=== PATIENT | male | born 1950 | race Caucasian/White ===

== ENCOUNTER 2018-05-22 12:23 | Inpatient (IN) | payer MEDICARE, OTHER ==
[2018-05-22] MEDS ORDERED: SODIUM CHLORIDE 0.9% 1,000 ML IV STA (12:31)
[2018-05-22 12:37] LABS: Glucose,Whole Blood 96 mg/dL (75-99)
--- NOTE | 2018-05-22 12:42 | ED ---
General Adult HPI - General Chief complaint: Neuro Symptoms/Deficit Stated complaint: Poss stroke Time Seen by Provider: 05/22/18 12:31 Source: patient, EMS, RN notes reviewed Mode of arrival: ambulatory Limitations: no limitations - History of Present Illness Initial comments: Patient is a pleasant 67-year-old male presenting to the emergency Department with visual changes and balance problems. Last known well was 10 PM. Patient woke at 3 AM and did have some difficulty with vision and balance. This was while he went to the bathroom. Patient woke again at 8 AM and symptoms were worse. Symptoms have been persistent and unchanged since 8 AM. Patient does not feel confused. Patient is unaware of any isolated area of weakness. No history of similar symptoms previously. No paresthesias. Patient did fall 3 times. Patient did strike the back of his head one time and states there is only mild discomfort there. Patient denies any speech problems. Patient does admit to not taking his blood pressure medication recently. Patient states he no longer sees his doctor because they claimed he owed them money for a missed appointment that he did not miss. - Related Data Home Medications Medication Instructions Recorded Confirmed No Known Home Medications [No 05/22/18 05/22/18 Known Home Medications] Allergies Allergy/AdvReac Type Severity Reaction Status Date / Time ciprofloxacin [From Cipro] Allergy Unknown Verified 05/22/18 13:15 Penicillins Allergy Unknown Verified 05/22/18 13:15 Review of Systems ROS Statement: Those systems with pertinent positive or pertinent negative responses have been documented in the HPI. ROS Other: All systems not noted in ROS Statement are negative. Constitutional: Denies: fever Eyes: Reports: vision change ENT: Denies: ear pain Respiratory: Denies: dyspnea Cardiovascular: Denies: chest pain Endocrine: Denies: fatigue Gastrointestinal: Denies: abdominal pain Genitourinary: Denies: dysuria Musculoskeletal: Denies: back pain Skin: Denies: rash Neurological: Reports: headache, abnormal gait. Denies: confusion Past Medical History Past Medical History: Cancer, Hypertension Additional Past Medical History / Comment(s): chronic back issues, skin CA History of Any Multi-Drug Resistant Organisms: None Reported Past Psychological History: Anxiety Smoking Status: Current every day smoker Past Alcohol Use History: Daily Past Drug Use History: None Reported General Exam Limitations: no limitations General appearance: alert Head exam: Present: atraumatic, normocephalic Eye exam: Present: other (Disconjugate gaze). Absent: EOMI (Right eye unable to move medially past midline.) ENT exam: Present: normal oropharynx Neck exam: Present: normal inspection Respiratory exam: Present: normal lung sounds bilaterally Cardiovascular Exam: Present: regular rate, normal rhythm GI/Abdominal exam: Present: soft. Absent: tenderness Extremities exam: Present: normal inspection Neurological exam: Present: alert Expanded Neurological exam: Present: protecting the airway, other (Some slurred speech is present) Cranial nerves: EOM's Intact: Abnormal Right (Right eye unable to move medially past midline), Facial Sensation: Abnormal Left, Facial Palsy with Forehead Movement: Abnormal Left (Left facial droop) Cerebellar function: Finger to Nose: Abnormal Left Sensory exam: Upper Extremity Light Touch: Normal, Lower Extremity Light Touch: Normal Motor strength exam: RUE: 5, LUE: 5, RLE: 5, LLE: 4 Eye Response: (4) open spontaneously Motor Response: (6) obeys commands Verbal Response: (5) oriented Psychiatric exam: Present: normal affect, normal mood Skin exam: Present: normal color Course Vital Signs 05/22/18 12:32 Temperature 98.2 F Pulse Rate 75 Respiratory 16 Rate Blood Pressure 209/121 O2 Sat by Pulse 100 Oximetry EKG Findings - EKG Comments: EKG Findings:: Normal sinus rhythm 74. IA 128. QRS 78. QT 380. QTC 421. Normal axis. Normal QRS. No acute ST change. Medical Decision Making - Medical Decision Making Patient reevaluated. Patient unchanged. Patient is updated on results and plan. Case was discussed in detail with Dr. Davis, who will admit for hospital call. Patient is not a candidate for TPA secondary to last known well greater than 4.5 hours. - Lab Data Result diagrams: 05/22/18 12:34 05/22/18 12:34 Lab Results 05/22/18 05/22/18 05/22/18 Range/Units 12:30 12:34 12:34 WBC 8.9 (3.8-10.6) k/uL RBC 4.82 (4.30-5.90) m/uL Hgb 15.1 (13.0-17.5) gm/dL Hct 44.8 (39.0-53.0) % MCV 92.9 (80.0-100.0) fL MCH 31.3 (25.0-35.0) pg MCHC 33.7 (31.0-37.0) g/dL RDW 14.1 (11.5-15.5) % Plt Count 285 (150-450) k/uL Neutrophils % 70 % Lymphocytes % 19 % Monocytes % 7 % Eosinophils % 2 % Basophils % 1 % Neutrophils # 6.2 (1.3-7.7) k/uL Lymphocytes # 1.7 (1.0-4.8) k/uL Monocytes # 0.6 (0-1.0) k/uL Eosinophils # 0.2 (0-0.7) k/uL Basophils # 0.1 (0-0.2) k/uL PT (9.0-12.0) sec INR (<1.2) APTT (22.0-30.0) sec Sodium (137-145) mmol/L Potassium (3.5-5.1) mmol/L Chloride (98-107) mmol/L Carbon Dioxide (22-30) mmol/L Anion Gap mmol/L BUN (9-20) mg/dL Creatinine (0.66-1.25) mg/dL Est GFR (CKD-EPI)AfAm (>60 ml/min/1.73 sqM) Est GFR (CKD-EPI)NonAf (>60 ml/min/1.73 sqM) Glucose (74-99) mg/dL POC Glucose (mg/dL) 96 (75-99) mg/dL POC Glu Manufacturing Controller ID Samuel Avalos Calcium (8.4-10.2) mg/dL Total Bilirubin (0.2-1.3) mg/dL AST (17-59) U/L ALT (21-72) U/L Alkaline Phosphatase (38-126) U/L Total Creatine Kinase 160 (55-170) U/L CK-MB (CK-2) 1.9 (0.0-2.4) ng/mL CK-MB (CK-2) Rel Index 1.2 Troponin I <0.012 (0.000-0.034) ng/mL Total Protein (6.3-8.2) g/dL Albumin (3.5-5.0) g/dL 05/22/18 05/22/18 Range/Units 12:34 12:34 WBC (3.8-10.6) k/uL RBC (4.30-5.90) m/uL Hgb (13.0-17.5) gm/dL Hct (39.0-53.0) % MCV (80.0-100.0) fL MCH (25.0-35.0) pg MCHC (31.0-37.0) g/dL RDW (11.5-15.5) % Plt Count (150-450) k/uL Neutrophils % % Lymphocytes % % Monocytes % % Eosinophils % % Basophils % % Neutrophils # (1.3-7.7) k/uL Lymphocytes # (1.0-4.8) k/uL Monocytes # (0-1.0) k/uL Eosinophils # (0-0.7) k/uL Basophils # (0-0.2) k/uL PT 9.8 (9.0-12.0) sec INR 1.0 (<1.2) APTT 23.7 (22.0-30.0) sec Sodium 140 (137-145) mmol/L Potassium 4.4 (3.5-5.1) mmol/L Chloride 103 (98-107) mmol/L Carbon Dioxide 26 (22-30) mmol/L Anion Gap 11 mmol/L BUN 8 L (9-20) mg/dL Creatinine 0.72 (0.66-1.25) mg/dL Est GFR (CKD-EPI)AfAm >90 (>60 ml/min/1.73 sqM) Est GFR (CKD-EPI)NonAf >90 (>60 ml/min/1.73 sqM) Glucose 95 (74-99) mg/dL POC Glucose (mg/dL) (75-99) mg/dL POC Glu Manufacturing Controller ID Calcium 9.5 (8.4-10.2) mg/dL Total Bilirubin 1.1 (0.2-1.3) mg/dL AST 24 (17-59) U/L ALT 31 (21-72) U/L Alkaline Phosphatase 80 (38-126) U/L Total Creatine Kinase (55-170) U/L CK-MB (CK-2) (0.0-2.4) ng/mL CK-MB (CK-2) Rel Index Troponin I (0.000-0.034) ng/mL Total Protein 7.5 (6.3-8.2) g/dL Albumin 4.5 (3.5-5.0) g/dL - Radiology Data Radiology results: image reviewed (Two-view chest x-ray shows no acute process. Computed tomography scan of the brain shows atrophy and some periventricular white matter ischemic changes.) Disposition Clinical Impression: Cerebrovascular accident Disposition: ADMITTED IP TO THIS [facility] Condition: Serious Is patient prescribed a controlled substance at d/c from ED?: No Referrals: None,Stated [Primary Care Provider] - 1-2 days Decision Time: 13:39
[2018-05-22 12:51] LABS: Basophils # (A) 0.1 k/uL (0-0.2); Basophils % (A) 1 %; Eosinophils # (A) 0.2 k/uL (0-0.7); Eosinophils % (A) 2 %; HCT 44.8 % (39.0-53.0); HGB 15.1 gm/dL (13.0-17.5); Lymphocytes # (A) 1.7 k/uL (1.0-4.8); Lymphocytes % (A) 19 %; MCH 31.3 pg (25.0-35.0); MCHC 33.7 g/dL (31.0-37.0); MCV 92.9 fL (80.0-100.0); Mean Platelet Volume 6.6; Monocytes # (A) 0.6 k/uL (0-1.0); Monocytes % (A) 7 %; Neutrophils # (A) 6.2 k/uL (1.3-7.7); Neutrophils % (A) 70 %; Platelet Count 285 k/uL (150-450); RBC 4.82 m/uL (4.30-5.90); RDW 14.1 % (11.5-15.5); WBC 8.9 k/uL (3.8-10.6)
[2018-05-22 12:59] LABS: ALT 31 U/L (21-72); AST 24 U/L (17-59); Albumin 4.5 g/dL (3.5-5.0); Alkaline Phosphatase 80 U/L (38-126); Anion Gap 11 mmol/L; Blood Urea Nitrogen 8 mg/dL (9-20); Calcium 9.5 mg/dL (8.4-10.2); Carbon Dioxide 26 mmol/L (22-30); Chloride 103 mmol/L (98-107); Glucose 95 mg/dL (74-99); Potassium 4.4 mmol/L (3.5-5.1); Sodium 140 mmol/L (137-145); Total Bilirubin 1.1 mg/dL (0.2-1.3); Total Protein 7.5 g/dL (6.3-8.2)
[2018-05-22 13:00] LABS: Partial Thromboplastin Time 23.7 sec (22.0-30.0); Prothrombin Time 9.8 sec (9.0-12.0)
[2018-05-22 13:12] LABS: Creatine Kinase 160 U/L (55-170)
[2018-05-22 13:24] LABS: Creatine Kinase MB 1.9 ng/mL (0.0-2.4); Troponin I <0.012 ng/mL (0.000-0.034)
--- NOTE | 2018-05-22 13:25 | CT ---
EXAMINATION TYPE: CT brain wo con for TPA DATE OF EXAM: 05/22/2018 COMPARISON: NONE INDICATION: Patient complains of left side weakness and visual disturbance. DLP: 860 mGycm, Automated exposure control for dose reduction was used. CONTRAST: None CT of the brain is performed utilizing 3 mm thick sections through the posterior fossa and 3 mm thick sections through the remaining calvarium. Study is performed within 24 hours of arrival to the hosp ital. No abnormal hyperdensity is present to suggest an acute intracranial hemorrhage. No mass lesion is evident. No acute infarcts are evident. Periventricular white matter hypodensity is present likely on the basi s of chronic white matter ischemic change. Ventricles and sulci are lightly prominent for the patient age. Paranasal sinuses and mastoid air cells within the [id number] are clear. IMPRESSIONS: 1. Atrophy with periventricular white matter ischemic changes.
--- NOTE | 2018-05-22 13:33 | XR ---
EXAMINATION TYPE: XR chest 2V DATE OF EXAM: 05/22/2018 COMPARISON: NONE INDICATION: Altered mental status TECHNIQUE: Frontal and lateral views of the chest are obtained. FINDINGS: The heart size is normal. The pulmonary vasculature is normal. The lungs are clear. There is elevation of the right diaphragm. Mild hyperinflation may be present. IMPRESSION: 1. No acute pulmonary process.
[2018-05-22] MEDS ORDERED: ASPIRIN 325 MG TAB PO STA (13:39)
[2018-05-22] MEDS ORDERED: ALPRAZolam 0.5 MG TAB PO STA (13:42)
[2018-05-22] MEDS ORDERED: LABETALOL 5 MG/ML VIAL MDV IVP STA (13:47)
--- NOTE | 2018-05-22 14:00 | CT ---
EXAMINATION TYPE: CT angio head neck DATE OF EXAM: 05/22/2018 HISTORY: Patient complains of left side weakness and visual disturbance. COMPARISON: NONE CT DLP: 250.1 mGycm. Automated Exposure Control for Dose Reduction was Utilized. TECHNIQUE: CTA scan of the neck is performed with IV Contrast, patient injected with 60 mL of Isovue 370, axial images are obtained, coronal and sagittal reformatted images are reviewed. Three-D recons tructed images are created on an independent workstation and reviewed. FINDINGS: Carotid/Vascular Structures: There is a three-vessel arch. Vertebral arteries are codominant. Caroti d arteries bifurcate normally into internal and external carotid arteries. There is atheromatous plaq uing at the carotid bifurcations. No obvious stenosis is evident. 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 This is not identified on the reconst ructed images. Left A1 segment appears normal. The anterior communicating artery is patent. Posterior communicating arteries are not identified. Other: Degenerative changes are noted within the cervical spine. Intracranial contents are grossly no rmal. IMPRESSION: 1. Atheromatous plaquing at the carotid bifurcations without obvious significant stenosis. 2. [place] is within normal limits. 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
[2018-05-22 19:35] VITALS: BMI 24.0
[2018-05-22] MEDS: SODIUM CHLORIDE 0.9% 1,000 ML IV SCH ×2 (19:51→23:44)
--- NOTE | 2018-05-22 23:38 | P.HPIM ---
History of Present Illness H&P Date: 05/22/18 Chief Complaint: Dizziness and visual problems Patient is a 67-year-old male with a known history of hypertension currently not on any medications came to ER with complaints of dizziness, visual problems and balance issues. Patient went to bed around 10 PM last night without any symptoms. Patient woke up around 3 AM did felt dizziness. Patient went to bathroom and looked in the mirror and noticed some facial asymmetry but thought he was sleepy and went to bed again. Patient woke up around 8 AM again him he noticed similar problems and felt very weak and dizzy and also having visual problems and felt blurry. Patient has been having this persistent symptoms and came to ER for further evaluation. Denied any leg R hand weakness. Patient does have left-sided facial weakness and is diagnosing the left eye. Denied any numbness or tingling. Patient did fall 3 times.. Patient did strike the back of his head one time and states there is only mild discomfort there. Patient denies any speech problems. Denied any recent illnesses. No chest pain or shortness of breath. No palpitations. EKG showed sinus rhythm CT head atrophy with periventricular white matter ischemic changes Chest x-ray no acute cardiopulmonary process CT angiogram of the head showed atheromatous plague at the carotid bifurcation without obvious significant stenosis. 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 Review of Systems Constitutional: Patient denies any fever or chills . No generalized weakness or weight loss. Abdomen: Patient denied nausea vomiting and diarrhea and abdominal pain. Cardiovascular: Patient denies any chest pain or short of breath no palpitations. Respiratory: patient denied any cough is from production. No shortness of breath Neurologic: Patient denied any numbness or tingling. No headache. Patient does have dizziness and blurred vision and no difficulty in speech. Musculoskeletal: Patient denies any complaints of joint swelling or deformity. Skin: Negative Psychiatric: Negative Endocrine: No heat or cold intolerance. No recent weight gain. Genitourinary: No dysuria or hematuria. All other 14 point ROS negative except the above Past Medical History Past Medical History: Cancer, Hypertension Additional Past Medical History / Comment(s): chronic back issues, skin CA History of Any Multi-Drug Resistant Organisms: None Reported Past Psychological History: Anxiety Smoking Status: Current every day smoker Past Alcohol Use History: Daily Past Drug Use History: None Reported Medications and Allergies Home Medications Medication Instructions Recorded Confirmed Type No Known Home Medications [No 05/22/18 05/22/18 History Known Home Medications] Allergies Allergy/AdvReac Type Severity Reaction Status Date / Time ciprofloxacin [From Cipro] Allergy Unknown Verified 05/22/18 13:15 Penicillins Allergy Unknown Verified 05/22/18 13:15 Physical Exam Vitals: Vital Signs Temp Pulse Resp BP Pulse Ox 05/22/18 13:58 68 16 227/98 100 05/22/18 13:47 76 16 240/119 99 05/22/18 12:32 98.2 F 75 16 209/121 100 Intake and Output 05/22/18 05/22/18 05/22/18 06:59 14:59 22:59 Other: Weight 73.936 kg PHYSICAL EXAMINATION: Patient is lying in the bed comfortably, no acute distress, awake alert and oriented.. HEENT: Normocephalic. Neck is supple. Pupils reactive. Nostrils clear. Oral cavity is moist. Ears reveal no drainage. Neck reveals no JVD, carotid bruits, or thyromegaly. CHEST EXAMINATION: Trachea is central. Symmetrical expansion. Lung castorena clear to auscultation and percussion. CARDIAC: Normal S1, S2 with no gallops. No murmurs ABDOMEN: Soft. Bowel sounds normal. No organomegaly. No abdominal bruits. Extremities: reveal no edema. No clubbing or cyanosis Neurologically awake, alert, oriented x3 with well-coordinated movements. Patient does have left-sided facial muscle weakness and nystagmus. Skin: No rash or skin lesions. Psychiatric: Coperative. Nonsuicidal Musculoskeletal: No joint swelling or deformity. Normal range of motion. Results CBC & Chem 7: 05/22/18 12:34 05/22/18 12:34 Labs: Abnormal Lab Results - Last 24 Hours (Table) 05/22/18 Range/Units 12:34 BUN 8 L (9-20) mg/dL Assessment and Plan Assessment: Acute CVA with left-sided facial muscle weakness Blurry vision Uncontrolled blood pressure expected with acute CVA area Hypertension history. Not on any medications currently at home. DVT prophylaxis Plan: Patient will be continued on aspirin. Continue with neurochecks. Patient underwent CT head and CTA head. Neurology will be consulted. Patient is out of time range For TPA. Continue to follow closely and further recommendations based on the clinical course. PTOT and speech swallow evaluation. Time with Patient: Greater than 30
[2018-05-22] MEDS: ALPRAZolam 0.5 MG TAB PO PRN (23:49)
[2018-05-23 03:36] LABS: Cholesterol 161 mg/dL (<200); HDL Cholesterol 73 mg/dL (40-60); LDL Cholesterol,Calculated 76 mg/dL (0-99); Triglycerides 62 mg/dL (<150)
[2018-05-23] MEDS: ALPRAZolam 0.5 MG TAB PO PRN ×2 (10:00→21:21)
[2018-05-23] MEDS: SODIUM CHLORIDE 0.9% 1,000 ML IV SCH ×2 (10:02→17:16)
[2018-05-23] MEDS: ASPIRIN 325 MG TAB PO SCH (12:20)
--- NOTE | 2018-05-23 12:20 | ECHOF ---
Referral Reason:Thrombus MEASUREMENTS -------- HEIGHT: 172.7 cm WEIGHT: 71.2 kg BP: 152/82 RVIDd: 2.9 cm (< 3.3) IVSd: 1.4 cm (0.6 - 1.1) LVIDd: 5.0 cm (3.9 - 5.3) LVPWd: 1.4 cm (0.6 - 1.1) IVSs: 1.6 cm LVIDs: 3.0 cm LVPWs: 1.5 cm LA Diam: 3.8 cm (2.7 - 3.8) LAESV Index (A-L): 38.71 ml/m Ao Diam: 3.1 cm (2.0 - 3.7) AV Cusp: 1.5 cm (1.5 - 2.6) MV EXCURSION: 18.547 mm (> 18.000) MV EF SLOPE: 133 mm/s (70 - 150) EPSS: 0.8 cm MV E Tito: 1.20 m/s MV DecT: 217 ms MV A Tito: 0.84 m/s MV E/A Ratio: 1.44 AV maxP.36 mmHg AV meanP.30 mmHg AR PHT: 510 ms RAP: 5.00 mmHg RVSP: 42.89 mmHg FINDINGS -------- Sinus rhythm. This was a technically good study. The left ventricular size is normal. There is moderate concentric left ventricular hypertrophy. O verall left ventricular systolic function is normal with, an EF between 55 - 60 %. The right ventricle is normal in size. LA is moderately dilated 34-39 ml/m2 The right atrium is normal in size. There is moderate aortic valve sclerosis. There is mild aortic stenosis present. Peak/mean gradie nt across the Aortic Valve is 31.36mmHg / 16.30mmHg. The mitral valve leaflets are mildly thickened. Mild mitral annular calcification present. Mild m itral regurgitation is present. Mild tricuspid regurgitation present. There is mild pulmonary hypertension. The right ventricular systolic pressure, as measured by Doppler, is 42.89mmHg. There is no pulmonic regurgitation present. The aortic root size is normal. Normal inferior vena cava with normal inspiratory collapse consistent with estimated right atrial pre ssure of 5 mmHg. The inferior vena cava is mildly dilated. There is no pericardial effusion. CONCLUSIONS -------- 1. Sinus rhythm. 2. This was a technically good study. 3. The left ventricular size is normal. 4. There is moderate concentric left ventricular hypertrophy. 5. Overall left ventricular systolic function is normal with, an EF between 55 - 60 %. 6. The right ventricle is normal in size. 7. LA is moderately dilated 34-39 ml/m2 8. The right atrium is normal in size. 9. There is moderate aortic valve sclerosis. 10. There is mild aortic stenosis present. 11. Peak/mean gradient across the Aortic Valve is 31.36mmHg / 16.30mmHg. 12. The mitral valve leaflets are mildly thickened. 13. Mild mitral annular calcification present. 14. Mild mitral regurgitation is present. 15. Mild tricuspid regurgitation present. 16. There is mild pulmonary hypertension. 17. The right ventricular systolic pressure, as measured by Doppler, is 42.89mmHg. 18. There is no pulmonic regurgitation present. 19. The aortic root size is normal. 20. Normal inferior vena cava with normal inspiratory collapse consistent with estimated right atrial pressure of 5 mmHg. 21. The inferior vena cava is mildly dilated. 22. There is no pericardial effusion. TOW PICKER: Aylin Vance RDCS
[2018-05-23] MEDS: amLODIPine 5 MG TAB PO SCH (15:26)
[2018-05-23] MEDS: NICOTINE 21MG/24HR PATCH TRANSDERM SCH (15:26)
--- NOTE | 2018-05-23 16:36 | CDI ---
Last Revision, October 2017 Documentation Clarification Form Date: 05/23/2018 12:00:00 AM From: Fely Sherwood RN, CCDS Admit Date: 05/22/2018 1:39:00 PM Patient Name: Gokul Cardona Visit Number: [id number] Discharge Date: ATTENTION: The Clinical Documentation Specialists (CDI) and [facility] Coding Staff appreciate your assistance in clarifying documentation. Please respond to the clarification below the line at the bottom and electronically sign. The CDI & [facility] Coding staff will review the response and follow-up if needed. Please note: Queries are made part of the Legal Health Record. If you have any questions, please contact the author of this message via ITS. Dr. Herbie Davis Patient history/risk factors: Skin CA, hypertension, Current every day smoker Clinical Indicators: Patient present with complaints of dizziness, blurred vision and falls x3. He has a history of hypertension currently not on any medications. He has left-sided facial weakness, left eye, nystagmus. Lab findings: WBC 8.9 CT head atrophy with periventricular white matter ischemic changes. CT angiogram of head: Atheromatous plague in the carotid bifurcation without obvious significant stenosis. Vital Signs: 209/121 75 16 98.2 , 240/119 76 16, 227/98 68 16 Other Clinical Indicators: H/P has uncontrolled blood pressure expected with acute CVA. Treatment: ASA Labetalol IV Norvasc PO Monitor VS neurology consult, In your professional opinion, can you please further clarify uncontrolled hypertension? Hypertensive Crisis Hypertensive Urgency Hypertensive Emergency Other, please specify Unable to determine Please continue to document in your progress notes and discharge summary in order to capture severity of illness and risk of mortality. Include clinical findings that support your diagnosis. MTDD
--- NOTE | 2018-05-23 17:12 | CT ---
EXAMINATION TYPE: CT brain wo con DATE OF EXAM: 05/23/2018 COMPARISON: Prior head CT 05/22/2018 HISTORY: Patient shows continued signs of left side facial droop, neuro deficit. CT DLP: 1118 mGycm Automated exposure control for dose reduction was used. Helical acquisition through the brain. FINDINGS: Some White matter demyelination changes may be due to chronic small vessel ischemia. There is no hemo rrhage or hydrocephalus. Calvarium is intact. Paranasal sinuses and mastoid air cells as visualized a re normal. There are cerebral vascular calcifications present. IMPRESSION: STABLE EXAM. NO ACUTE ABNORMALITY IS EVIDENT. Consider MRI
--- NOTE | 2018-05-23 20:15 | P.CNNES ---
History of Present Illness Consult date: 05/23/18 Reason for Consult: Patient admitted with dizziness and possible stroke. History of Present Illness: This patient is a 67-year-old right-handed white male who was brought into the emergency room at [facility] on 05/22/2018 for evaluation of dizziness and visual disturbance. Patient states that for the past week he has just not been feeling well at home. He lives alone in his own home and apparently has not seen a physician in over 2 years. His previous physician was in [place] in the last visit he had with them was about 2 years ago. Apparently he was in his usual state of health until 10 PM on May 22. He woke up at 3 AM in the morning as he was feeling dizzy when he went to the bathroom. He looked in the mirror and noted that he had some visual changes in his eyes and his eyes just didn't look right. He also noticed some facial droop on the left side of his face. He decided to go back to sleep and apparently woke up again at 8 AM and felt very weak and dizzy. His visual problems continued. Symptoms seem to be worsening and he decided to come to the emergency room for further evaluation. He was seen in the ER by Dr. Velasquez yesterday. He was outside of the window for tPA use for thrombolytic therapy. As noted he is not a candidate for tPA secondary to his last known well time being greater than 4-1/2 hours. He was sent for a computed tomography scan of the brain which was completed yesterday and revealed atrophy with periventricular white matter ischemic changes. He had a second repeat computed tomography scan of the brain done today which again reveals stable exam with no acute abnormality evident. Patient also underwent CTA angiogram of the head and neck. This was performed just today in the ER. His showed atheromatous plaquing without significant carotid artery stenosis. [place] of [place] was within normal limits with a severely hypoplastic right A1 segment. The patient was given aspirin and admitted to the hospital. Patient states his symptoms are still quite significant for him and that he has difficulty with his vision as well as left-sided facial droop and slurring of his speech. According to his son who is at bedside today his speech is quite impaired. Patient states that the speech seems to be getting slightly worse. He was also noted to have drooling from the left angle of the mouth. Patient denies any previous history of TIA or stroke. Apparently while at home prior to coming to the ER he did sustain a few falls due to weakness on his left side. Patient was subsequently admitted to the hospital and is now resting in his bed. According to his son he has shown some difficulty with his speech as compared to his initial presentation. His bedside neurological exam reveals him to have left-sided facial droop, left pronator drift, and gaze abnormality. It appears that he does have some degree of right medial rectus muscle weakness and does have disconjugate eye gaze movements. He continues to complain of visual problems. This patient's clinical history suggesting possibility of acute stroke. We have recommended a complete stroke evaluation for the patient. He is now been admitted and neurology has been consulted for further evaluation and recommendations. Review of Systems Constitutional: Denies chills, Denies fever Eyes: bilateral diplopia, denies blurred vision, denies pain Ears, nose, mouth and throat: Denies headache, Denies sore throat Cardiovascular: Denies chest pain, Denies shortness of breath Respiratory: Denies cough Gastrointestinal: Denies abdominal pain, Denies diarrhea, Denies nausea, Denies vomiting Musculoskeletal: Denies myalgias Integumentary: Denies pruritus, Denies rash Neurological: Reports change in mentation, Reports change in speech, Reports confusion, Reports gait dysfunction, Reports memory loss, Reports paresthesias, Reports tingling, Denies numbness, Denies weakness Psychiatric: Denies anxiety, Denies depression Endocrine: Denies fatigue, Denies weight change Past Medical History Past Medical History: Cancer, Hypertension Additional Past Medical History / Comment(s): chronic back issues, skin CA History of Any Multi-Drug Resistant Organisms: None Reported Past Psychological History: Anxiety Smoking Status: Current every day smoker Past Alcohol Use History: Daily Past Drug Use History: None Reported Medications and Allergies Home Medications Medication Instructions Recorded Confirmed Type No Known Home Medications [No 05/22/18 05/22/18 History Known Home Medications] Allergies Allergy/AdvReac Type Severity Reaction Status Date / Time ciprofloxacin [From Cipro] Allergy Unknown Verified 05/22/18 13:15 Penicillins Allergy Unknown Verified 05/22/18 13:15 Physical Examination - Vital Signs Vital Signs: Vital Signs Temp Pulse Pulse Resp BP BP BP 05/23/18 15:49 97.2 F L 68 18 165/82 06/25/18 12:00 97.2 F L 74 18 147/75 05/23/18 08:00 97.1 F L 79 18 177/99 05/23/18 03:30 97.1 F L 64 18 152/82 05/23/18 00:00 97.3 F L 69 18 165/79 05/22/18 19:30 98.5 F 72 18 126/63 05/22/18 19:02 97.4 F L 79 18 180/81 05/22/18 19:01 98.6 F 67 18 206/92 Pulse Ox 05/23/18 15:49 98 05/23/18 12:00 99 05/23/18 08:00 97 05/23/18 03:30 95 05/23/18 00:00 97 05/22/18 19:30 96 05/22/18 19:02 100 05/22/18 19:01 Intake and Output 05/23/18 05/23/18 05/23/18 06:59 14:59 22:59 Intake Total 209 684 1481 Balance 071 535 9194 Intake: Intake, IV Titration 600 1000 Amount Sodium Chloride 0.9% 1, 600 1000 000 ml @ 100 mls/hr IV . Q10H [facility] Rx#:[id number] Oral 480 720 Other: Voiding Method Toilet Urinal # Voids 2 500 3 Weight 71.6 kg - Constitutional General appearance: average body habitus, cooperative - EENT EENT: PERRL, mucous membranes moist - Respiratory Respiratory: lungs clear, normal breath sounds - Cardiovascular Cardiovascular: regular rate, normal S1, normal S2 Extremities: no peripheral edema bilaterally - Gastrointestinal Gastrointestinal: normoactive bowel sounds - Integumentary Integumentary: normal - Neurologic Cranial nerve examination: PERRL, EOMI (Patient has evidence of a right medial rectus muscle weakness. He has disconjugate eye gaze on lateral gaze testing.) , VFF, V1/V2/V3 grossly intact, intact shoulder shrug, intact gag reflex, intact corneal reflex, facial droop (Patient has left upper motor neuron facial weakness.), normal palatal elevation Speech examination: intact Sensorimotor examination: intact Motor examination - right side: 4/5: biceps, triceps, wrist flexion, wrist extension, agronomy specialist, hip flexors, knee extensors, dorsiflexion, toe extension (EHL) , plantarflexion Motor examination - left side: 3/5: biceps, triceps, wrist flexion, wrist extension, agronomy specialist, hip flexors, knee extensors, dorsiflexion, toe extension (EHL) , plantarflexion Detailed sensory examination: intact Reflex and gait examination: intact Reflexes: 1+: ankle, bicep, knee, tricep - Musculoskeletal Musculoskeletal: no pain - Psychiatric Psychiatric: mood/affect appropriate, cooperative Results - Laboratory Findings CBC and BMP: 05/22/18 12:34 05/22/18 12:34 Abnormal Lab Findings: Abnormal Labs 05/22/18 05/22/18 12:34 12:34 BUN 8 L HDL Cholesterol 73 H Assessment and Plan (1) Acute right arterial ischemic stroke, MCA (middle cerebral artery) Current Visit: Yes Status: Acute Code(s): I63.511 - CEREB INFRC D/T UNSP OCCLS OR STENOS OF RIGHT MID CEREB ART SNOMED Code(s): 794021794 (2) Transient brainstem ischemia Current Visit: Yes Status: Acute Code(s): G45.9 - TRANSIENT CEREBRAL ISCHEMIC ATTACK, UNSPECIFIED SNOMED Code(s): 729157603 (3) Dysconjugate gaze Current Visit: Yes Status: Acute Code(s): H51.8 - OTHER SPECIFIED DISORDERS OF BINOCULAR MOVEMENT SNOMED Code(s): 402301969 (4) Expressive aphasia Current Visit: Yes Status: Acute Code(s): R47.01 - APHASIA SNOMED Code(s) : 620207787 Plan: This patient is a 67-year-old right-handed white male who was admitted hospital with sudden onset of dizziness, unsteady gait, left facial droop, and difficulty with his speech. His symptoms began suddenly at 3 AM in the morning when he awoke to go to the bathroom. His symptoms worsened and he was brought into the emergency room yesterday and was seen in the ER at [facility] by Dr. Velasquez. He underwent a computed tomography scan of the brain and CTA angiogram of the head and neck. CAT scan of the brain failed to reveal any acute changes. There was atrophy and periventricular white matter ischemic changes noted. He was not a candidate for TPA as he was outside of the therapeutic window for an half hours. He was acutely admitted to hospital for a complete stroke evaluation. Patient had a repeat computed tomography scan of the brain done today which fails to reveal any acute findings. We have recommended the patient undergo MRI of the brain as his clinical findings are suggesting acute stroke possibly involving the right MCA territory. There is also disconjugate eye gaze suggesting possible brainstem ischemia as well. We have recommended the patient to undergo a complete stroke evaluation. Would recommend placing him on aspirin 325 mg daily for secondary stroke prevention. He may use an eye patch alternatively to each eye 12 hours at a time to help with his vision. He should follow up with the survey research associate upon discharge. Would recommend speech therapy and physical therapy consultations with the patient. Case was discussed at length with the patient as well as his son at bedside. All their questions were answered. They are aware of his guarded condition. We will continue close neurological follow-up for the patient during this admission. Time with Patient: Greater than 30
[2018-05-23] MEDS ORDERED: MELATONIN 3 MG TABLET PO PRN (20:38)
[2018-05-23] MEDS: LISINOPRIL 10 MG TAB PO SCH (21:54)
--- NOTE | 2018-05-23 22:04 | P.PN ---
Subjective Progress Note Date: 05/23/18 Principal diagnosis: Dizziness and blurry vision Patient is a 67-year-old male with a known history of hypertension currently not on any medications came to ER with complaints of dizziness, visual problems and balance issues. Patient went to bed around 10 PM last night without any symptoms. Patient woke up around 3 AM did felt dizziness. Patient went to bathroom and looked in the mirror and noticed some facial asymmetry but thought he was sleepy and went to bed again. Patient woke up around 8 AM again him he noticed similar problems and felt very weak and dizzy and also having visual problems and felt blurry. Patient has been having this persistent symptoms and came to ER for further evaluation. Denied any leg R hand weakness. Patient does have left-sided facial weakness and is diagnosing the left eye. Denied any numbness or tingling. Patient did fall 3 times.. Patient did strike the back of his head one time and states there is only mild discomfort there. Patient denies any speech problems. Denied any recent illnesses. No chest pain or shortness of breath. No palpitations. EKG showed sinus rhythm CT head atrophy with periventricular white matter ischemic changes Chest x-ray no acute cardiopulmonary process CT angiogram of the head showed atheromatous plague at the carotid bifurcation without obvious significant stenosis. 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 05/23/2018 Patient is still having left-sided facial droop suspected to have right MCA territory cerebral infarct. Patient still having slurred speech and blurry vision. Repeat CT head showed no acute process noted. Neurology has seen the patient. MRI of the brain was ordered. Patient otherwise denied any complaints of chest pain or shortness of breath. Patient was also seen by speech/swallow evaluation. No fever no chills. Blood pressure is uncontrolled. Patient was started on Norvasc and lisinopril and we will add hydrochlorothiazide if continues to be uncontrolled. All other review of systems negative except the above. current medications reviewed. Objective - Vital Signs Vital signs: Vital Signs Temp 97.1 F L 05/23/18 08:00 Pulse 79 05/23/18 08:00 Resp 18 05/23/18 08:00 BP 177/99 05/23/18 08:00 Pulse Ox 97 05/23/18 08:00 Intake & Output 05/22/18 05/23/18 05/23/18 18:59 06:59 18:59 Intake Total 700 240 Balance 700 240 Weight 73.936 kg 71.6 kg Intake: Intake, IV Titration 700 Amount Sodium Chloride 0.9% 1, 700 000 ml @ 100 mls/hr IV . Q10H [facility] Rx#:[id number] Oral 240 Other: Voiding Method Toilet Urinal # Voids 2 500 - Exam Patient is lying in the bed comfortably, no acute distress, awake alert and oriented.. HEENT: Normocephalic. Neck is supple. Pupils reactive. Nostrils clear. Oral cavity is moist. Ears reveal no drainage. Neck reveals no JVD, carotid bruits, or thyromegaly. CHEST EXAMINATION: Trachea is central. Symmetrical expansion. Lung castorena clear to auscultation and percussion. CARDIAC: Normal S1, S2 with no gallops. No murmurs ABDOMEN: Soft. Bowel sounds normal. No organomegaly. No abdominal bruits. Extremities: reveal no edema. No clubbing or cyanosis Neurologically awake, alert, oriented x3 with well-coordinated movements. Patient does have left-sided facial droop and conjugate gaze Skin: No rash or skin lesions. Psychiatric: Coperative. Nonsuicidal Musculoskeletal: No joint swelling or deformity. Normal range of motion. - Labs CBC & Chem 7: 05/22/18 12:34 05/22/18 12:34 Labs: Abnormal Lab Results - Last 24 Hours (Table) 05/22/18 Range/Units 12:34 HDL Cholesterol 73 H (40-60) mg/dL Assessment and Plan Assessment: Acute CVA with left-sided facial droop, difficulty in speech, Blurry vision and unsteady gait with dizziness. Uncontrolled blood pressure expected with acute CVA area Accelerated hypertension Hypertension history. Not on any medications currently at home. DVT prophylaxis Plan: Patient will be continued on aspirin. Continue with neurochecks. Patient underwent CT head and CTA head. Neurology is following. MRI of the brain was ordered. 2-D echocardiogram showed normal ejection fraction. Continue to follow closely and further recommendations based on the clinical course. PTOT and speech swallow evaluation. Time with Patient: Greater than 30
[2018-05-24] MEDS: SODIUM CHLORIDE 0.9% 1,000 ML IV SCH ×2 (06:19→18:15)
[2018-05-24] MEDS: NICOTINE 21MG/24HR PATCH TRANSDERM SCH (07:56)
[2018-05-24] MEDS: amLODIPine 5 MG TAB PO SCH (08:03)
[2018-05-24] MEDS: ASPIRIN 325 MG TAB PO SCH (08:03)
[2018-05-24] MEDS: LISINOPRIL 10 MG TAB PO SCH (08:03)
--- NOTE | 2018-05-24 11:42 | MR ---
Brain MR without contrast HISTORY: Left-sided weakness, gaze palsy Multiplanar multisequence imaging through the brain Correlation to CT brain 05/23/2018 There is restricted diffusion within the region of the internal capsule posterior horn on the right. No hemorrhage or hydrocephalus. There are normal vascular flow voids within the internal carotid todd tim. Mucosal disease present within the maxillary sinuses, ethmoid air cells. 2. Numerous to count scattered hyperintensities are present within the deep white matter on inversion recovery and T2-weighted sequences, increased signal is confluent periventricular white matter, karma . The orbits show symmetric appearance. Corpus callosum, pituitary, cervical medullary junction, cere bellopontine angles are within normal limits. Atrophy is likely age-related. IMPRESSION: Findings compatible with cerebrovascular accident as described. Chronic small vessel isch emic changes, age related atrophy.
[2018-05-24] MEDS: ALPRAZolam 0.5 MG TAB PO PRN (13:53)
--- NOTE | 2018-05-24 17:19 | PN ---
PROGRESS NOTE DATE OF SERVICE: 05/24/2018 This 67-year-old gentleman admitted with acute severe left-sided facial droop and blurring of vision is being closely monitored. PT/OT is evaluating the patient for ECF rehab. A brain MRI has been done today which showed acute CVI and numerous scattered hypodensities as well. Right internal capsule lesion was noted. No chest pain. No palpitation. On exam, alert and oriented x3. Pulse 67, blood pressure 186/90, respiration 18, temperature 98 degrees, pulse ox 97% on room air. HEENT: Conjunctivae normal. NECK: No jugular venous distention. CARDIOVASCULAR SYSTEM: S1, S2 muffled. RESPIRATORY SYSTEM: Breath sounds diminished at the bases. A few scattered rhonchi. No crackles. ABDOMEN: Soft, non-tender. LEGS: No edema. No swelling. NERVOUS SYSTEM: Diffuse weakness present. LABS: CBC noted. HDL is 73. ASSESSMENT: 1. Acute stroke with right internal capsule lesion. 2. Left-sided facial droop, blurring of vision, unsteady gait. 3. Gait dysfunction. 4. Blood pressure accelerated with hypertensive urgency. 5. Deep venous thrombosis prophylaxis. 6. History of chronic back pain, degenerative joint disease. 7. History of nicotine dependence. RECOMMENDATIONS AND DISCUSSION: In this 67-year-old gentleman who presented with multiple complex medical issues, we will monitor the patient closely, continue the current medications, continue symptomatic treatment. PT/OT evaluation. I would also recommend possible ECF rehab in [facility]. EEG has been done. Neurology is following the patient closely. Further recommendations to follow. DVT prophylaxis. MMODL / IJN: [id number] /
--- NOTE | 2018-05-24 19:49 | EEG ---
ELECTROENCEPHALOGRAM REPORT DATE OF EE05/24/2018 ELECTROENCEPHALOGRAPHIC EXAMINATION REPORT: INDICATION FOR EXAMINATION: This patient is a 67-year-old male, admitted with acute left-sided facial droop and dysconjugate eye gaze. AGE: [age]. EEG FINDINGS: A routine 21-channel awake digital EEG recording was accomplished utilizing the 10-20 international system with bipolar and referential montages. The background activity in the most alert resting state consists of a low to medium amplitude, fairly well developed and well sustained 6-7 Hz activity over the posterior head regions. This posterior rhythm attenuates to eye opening. There is a small amount of low amplitude 18-20 Hz beta activity seen maximally over the anterior head regions. Muscle and movement artifact was observed on a few occasions during the tracing. Hyperventilation was not performed. Photic stimulation at flash frequencies of 2-30 Hz produced a good symmetrical occipital driving response. No epileptiform discharges were seen. IMPRESSION: This EEG is mildly abnormal in a diffuse fashion due to slight slowing of the EEG background. The EEG failed to reveal any focal, lateralized, or epileptiform abnormalities. Clinical correlation is recommended. MMODL / IJN: [id number] /
--- NOTE | 2018-05-24 20:56 | P.PN ---
Subjective Progress Note Date: 05/24/18 This patient is a 67-year-old right-handed white male who was seen yesterday neurology consultation for evaluation of acute left-sided facial droop and visual changes. Patient was brought into the emergency room and was subtly admitted with a provisional diagnosis of acute stroke. On neurological examination yesterday the patient had evidence of left-sided upper motor neuron facial weakness. There was also evidence of a right medial rectus muscle palsy. The patient was recommended to undergo MRI of the brain today for further evaluation. MRI study was completed today and reveals evidence of a acute stroke involving the right internal capsule. The results of the MRI were discussed today with the patient. The patient continues to have evidence of left-sided facial weakness. He still complains of visual changes and has evidence of right medial rectus muscle weakness. We have recommended a consultation with ophthalmology to get their opinion and further recommendations. We have suggested the patient to patch the eyes throughout the day. Patient is to continue on aspirin daily for secondary stroke prevention. He is being evaluated for possible subacute rehab placement as well. His overall prognosis at this time remains very guarded. Objective - Vital Signs Vital signs: Vital Signs Temp 98.0 F 05/24/18 12:00 Pulse 67 05/24/18 12:00 Resp 18 05/24/18 12:00 BP 186/90 05/24/18 12:00 Pulse Ox 97 05/24/18 12:00 Intake & Output 05/23/18 05/24/18 05/24/18 18:59 06:59 18:59 Intake Total 2440 675 402 Output Total 950 1500 Balance 6822 -476 -7880 Weight 71 kg Intake: Intake, IV Titration 1000 675 Amount Sodium Chloride 0.9% 1, 1000 675 000 ml @ 100 mls/hr IV . Q10H [facility] Rx#:[id number] Oral 1440 402 Output: Urine 950 1500 Other: Voiding Method Toilet Urinal # Voids 3 3 # Bowel Movements 1 - Exam Physical Examination: PHYSICAL EXAMINATION: Patient is resting comfortably in bed. VITAL SIGNS: Blood pressure is [186/90]. Heart rate is [67]. Respiration is [18] . Temperature is [98.0]. HEENT: Head is atraumatic, neck is supple, there were no carotid bruits. CHEST: Lungs are clear to auscultation and percussion. CARDIAC: S1, S2 normal rate and rhythm. There is no murmur. ABDOMEN: Soft and nontender. Bowel sounds are present. EXTREMITIES: There is no pedal edema. Peripheral pulses are present. Neurological examination: Patient resting comfortably. Cranial nerve examination reveals patient to have a left upper motor neuron facial weakness. There was no pronator drift. Muscle tone is normal. Patient continues to demonstrate evidence of right medial rectus weakness and palsy. He has disconjugate eye gaze. - Labs CBC & Chem 7: 05/22/18 12:34 05/22/18 12:34 Assessment and Plan (1) Acute right arterial ischemic stroke, MCA (middle cerebral artery) Current Visit: Yes Status: Acute Code(s): I63.511 - CEREB INFRC D/T UNSP OCCLS OR STENOS OF RIGHT MID CEREB ART SNOMED Code(s): 808626245 (2) Transient brainstem ischemia Current Visit: Yes Status: Acute Code(s): G45.9 - TRANSIENT CEREBRAL ISCHEMIC ATTACK, UNSPECIFIED SNOMED Code(s): 508976311 (3) Dysconjugate gaze Current Visit: Yes Status: Acute Code(s): H51.8 - OTHER SPECIFIED DISORDERS OF BINOCULAR MOVEMENT SNOMED Code(s): 009595108 (4) Expressive aphasia Current Visit: Yes Status: Acute Code(s): R47.01 - APHASIA SNOMED Code(s) : 735632009 Plan: This patient is a 67-year-old male who was admitted to hospital yesterday with acute left-sided facial weakness and visual changes. He underwent MRI of the brain today results of which are noted above. MRI reveals evidence of an acute right internal capsule infarct. We reviewed the MRI results today with the patient. His CTA angiogram study was reviewed and was negative for any carotid artery stenosis. Patient is to continue current stroke workup. He is being evaluated for possible subacute rehab placement. He is to continue on aspirin daily for secondary stroke prevention. We are recommending a ophthalmology consultation for further evaluation of possible right medial rectus muscle weakness and palsy. This suggest third nerve involvement. We will await further recommendations from ophthalmology. Patient does have evidence of hypertensive urgency. He will require tighter control of his blood pressure. His overall prognosis at this time remains very guarded.
[2018-05-24] MEDS: HEPARIN SODIUM,PORCINE 5,000 UNIT/ML 1 ML VIAL SQ SCH (21:09)
[2018-05-25 08:00] LABS: Basophils % (A) 1 %; Eosinophils # (A) 0.5 k/uL (0-0.7); Eosinophils % (A) 6 %; HCT 41.3 % (39.0-53.0); HGB 13.5 gm/dL (13.0-17.5); Lymphocytes # (A) 1.6 k/uL (1.0-4.8); Lymphocytes % (A) 20 %; MCH 30.6 pg (25.0-35.0); MCHC 32.7 g/dL (31.0-37.0); MCV 93.6 fL (80.0-100.0); Mean Platelet Volume 6.6; Monocytes # (A) 0.7 k/uL (0-1.0); Monocytes % (A) 9 %; Neutrophils # (A) 4.9 k/uL (1.3-7.7); Neutrophils % (A) 63 %; Platelet Count 274 k/uL (150-450); RBC 4.41 m/uL (4.30-5.90); RDW 14.3 % (11.5-15.5); WBC 7.7 k/uL (3.8-10.6)
[2018-05-25 08:17] LABS: Anion Gap 9 mmol/L; Blood Urea Nitrogen 6 mg/dL (9-20); Calcium 8.9 mg/dL (8.4-10.2); Carbon Dioxide 26 mmol/L (22-30); Chloride 104 mmol/L (98-107); Glucose 80 mg/dL (74-99); Potassium 4.1 mmol/L (3.5-5.1); Sodium 139 mmol/L (137-145)
[2018-05-25] MEDS: SODIUM CHLORIDE 0.9% 1,000 ML IV SCH (12:45)
[2018-05-25] MEDS: ASPIRIN 325 MG TAB PO SCH (14:02)
[2018-05-25] MEDS: amLODIPine 5 MG TAB PO SCH (14:02)
[2018-05-25] MEDS: NICOTINE 21MG/24HR PATCH TRANSDERM SCH (14:02)
[2018-05-25] MEDS: LISINOPRIL 10 MG TAB PO SCH (14:02)
[2018-05-25] MEDS: HEPARIN SODIUM,PORCINE 5,000 UNIT/ML 1 ML VIAL SQ SCH ×2 (14:02→19:44)
--- NOTE | 2018-05-25 17:02 | PN ---
PROGRESS NOTE DATE OF SERVICE: 05/25/2018 This 67-year-old gentleman admitted with a stroke and other multiple medical problems is being closely monitored. The patient has been awaiting ophthalmology evaluation as well as PT/OT evaluation for ECF rehab. No chest pain. No palpitations. No fever. On exam, alert and oriented x3. Pulse 68, blood pressure 180/97, respirations 16, temperature 97.7, pulse ox 98% on room air. HEENT: Conjunctivae normal. NECK: No jugular venous distention. CARDIOVASCULAR SYSTEM: S1, S2 muffled. RESPIRATORY SYSTEM: Breath sounds diminished at the bases. No rhonchi. No crackles. ABDOMEN: Soft. NERVOUS SYSTEM: Mild diffuse weakness. LABS: CBC and BMP within normal limits. ASSESSMENT: 1. Acute stroke with the right internal capsule lesion on the MRI. 2. Left-sided facial droop, blurring of vision, unsteady gait. 3. Gait dysfunction. 4. Accelerated hypertension with hypertensive urgency. 5. Deep venous thrombosis prophylaxis. 6. History of chronic pain, degenerative joint disease. 7. History of nicotine dependence. RECOMMENDATION AND DISCUSSION: I recommend to continue current medication, continue symptomatic treatment. Follow closely with Neurology and Ophthalmology. PT/OT evaluation. Possible ECF rehab. Guarded prognosis. Further recommendations to follow. MMODL / IJN: [id number] /
--- NOTE | 2018-05-25 17:32 | P.PN ---
Subjective Progress Note Date: 05/25/18 This patient is a 67-year-old right-handed white male who was seen yesterday neurology consultation for evaluation of acute left-sided facial droop and visual changes. Patient was brought into the emergency room and was subtly admitted with a provisional diagnosis of acute stroke. On neurological examination yesterday the patient had evidence of left-sided upper motor neuron facial weakness. There was also evidence of a right medial rectus muscle palsy. The patient was recommended to undergo MRI of the brain today for further evaluation. MRI study was completed today and reveals evidence of a acute stroke involving the right internal capsule. The results of the MRI were discussed today with the patient. The patient continues to have evidence of left-sided facial weakness. He still complains of visual changes and has evidence of right medial rectus muscle weakness. We have recommended a consultation with ophthalmology to get their opinion and further recommendations. We have suggested the patient to patch the eyes throughout the day. Ophthalmology was consulted yesterday however they have not yet seen him. Today on his neurological examination he does show some improvement with right medial rectus weakness. We will await any further recommendations from ophthalmology. Patient states he was able to ambulate up and down the hallway today with physical therapy and did quite well. Patient is to continue on aspirin daily for secondary stroke prevention. He is being evaluated for possible subacute rehab placement as well. Patient is requesting subacute rehab at [facility]. His overall prognosis at this time remains very guarded. Objective - Vital Signs Vital signs: Vital Signs Temp 97.7 F 05/25/18 12:00 Pulse 65 05/25/18 12:00 Resp 18 05/25/18 12:00 BP 180/97 05/25/18 12:00 Pulse Ox 98 05/25/18 12:00 Intake & Output 05/24/18 05/25/18 05/25/18 18:59 06:59 18:59 Intake Total 552 480 Output Total 3009 761 9612 Balance -948 -400 -920 Intake: Oral 552 480 Output: Urine 3011 058 4907 Other: Voiding Method Toilet Toilet Urinal Urinal # Voids 2 1 # Bowel Movements 1 - Exam Physical Examination: PHYSICAL EXAMINATION: Patient is resting comfortably in bed. VITAL SIGNS: Blood pressure is [148/84]. Heart rate is [76]. Respiration is [16] . Temperature is [97.7]. HEENT: Head is atraumatic, neck is supple, there were no carotid bruits. CHEST: Lungs are clear to auscultation and percussion. CARDIAC: S1, S2 normal rate and rhythm. There is no murmur. ABDOMEN: Soft and nontender. Bowel sounds are present. EXTREMITIES: There is no pedal edema. Peripheral pulses are present. Neurological examination: Patient resting comfortably. Cranial nerve examination reveals patient to have a left upper motor neuron facial weakness. There was no pronator drift. Muscle tone is normal. Patient continues to demonstrate evidence of right medial rectus weakness and palsy but weakness seems some improvement today as compared to yesterday. - Labs CBC & Chem 7: 05/25/18 05:49 05/25/18 05:49 Labs: Abnormal Lab Results - Last 24 Hours (Table) 05/25/18 Range/Units 05:49 BUN 6 L (9-20) mg/dL Creatinine 0.65 L (0.66-1.25) mg/dL Assessment and Plan (1) Acute right arterial ischemic stroke, MCA (middle cerebral artery) Current Visit: Yes Status: Acute Code(s): I63.511 - CEREB INFRC D/T UNSP OCCLS OR STENOS OF RIGHT MID CEREB ART SNOMED Code(s): 759788329 (2) Transient brainstem ischemia Current Visit: Yes Status: Acute Code(s): G45.9 - TRANSIENT CEREBRAL ISCHEMIC ATTACK, UNSPECIFIED SNOMED Code(s): 556746075 (3) Dysconjugate gaze Current Visit: Yes Status: Acute Code(s): H51.8 - OTHER SPECIFIED DISORDERS OF BINOCULAR MOVEMENT SNOMED Code(s): 362531991 (4) Expressive aphasia Current Visit: Yes Status: Acute Code(s): R47.01 - APHASIA SNOMED Code(s) : 678962303 Plan: This patient is a 67-year-old right-handed white male who was admitted to hospital with acute left facial weakness and disconjugate eye gaze. He underwent MRI of the brain following admission which reveals evidence of an acute right hemispheric subcortical stroke. He also showed evidence of a right medial rectus weakness which is showing improvement today. Ophthalmology has been consulted and are yet to see him. We will await any further recommendations for this patient. We have suggested he may consider using the eye patch alternatively to each eye twice a day. The patient is to continue on aspirin for secondary stroke prevention. He was able to ambulate today quite effectively with physical therapy. He is being considered for subacute rehab. Blood pressure seems to be better controlled today as compared to yesterday. We will continue close neurological follow-up for the patient during this admission. His overall prognosis at this time remains guarded.
--- NOTE | 2018-05-25 19:39 | CONS ---
CONSULTATION CHIEF COMPLAINT: Mild diplopia and decreased vision, right eye. HISTORY OF PRESENT ILLNESS: This patient noticed his vision in the right eye is decreased, with inability to focus with the right eye. He also noticed intermittent double vision. MEDICAL HISTORY AND SYSTEMIC HISTORY: Reviewed from the chart. Patient has hypertension. Denies diabetes. EYE EXAMINATION: Vision in the right eye is 20/100 with reading glasses, in the left eye 20/40 with reading glasses. Extraocular motility shows right medial rectus paralysis. Lids normal in position. Pupils were equal and reactive with no RAPD. Lens showed 3+ NS in the right eye and 2+ NS in the left eye. The vitreous was normal. The disc shows mild pallor with a cupping of 0.3. Intraocular pressure was 18 mmHg, both eyes. ASSESSMENT: 1. Right medial rectus palsy. 2. Right cataract. 3. Hypertensive retinopathy. MRI was reviewed and shows a right brain stroke. The patient has scattered and possibly some macular edema from hypertension; unable to investigate properly with an indirect scope. The patient will need to be seen in the office for further and closer evaluation of the retina. We will call the patient to arrange appointment in 2 weeks after discharge. MMODL / IJN: [id number] /
[2018-05-25] MEDS: ALPRAZolam 0.5 MG TAB PO PRN (20:51)
[2018-05-26 06:24] LABS: Basophils # (A) 0.1 k/uL (0-0.2); Basophils % (A) 1 %; Eosinophils # (A) 0.5 k/uL (0-0.7); Eosinophils % (A) 6 %; HGB 14.4 gm/dL (13.0-17.5); Lymphocytes # (A) 2.2 k/uL (1.0-4.8); Lymphocytes % (A) 25 %; MCH 31.2 pg (25.0-35.0); MCHC 33.5 g/dL (31.0-37.0); MCV 93.3 fL (80.0-100.0); Mean Platelet Volume 6.3; Monocytes # (A) 0.7 k/uL (0-1.0); Monocytes % (A) 8 %; Neutrophils % (A) 58 %; Platelet Count 297 k/uL (150-450); RDW 14.7 % (11.5-15.5); WBC 8.6 k/uL (3.8-10.6)
[2018-05-26] MEDS: SODIUM CHLORIDE 0.9% 1,000 ML IV SCH ×2 (06:40→09:38)
[2018-05-26 06:42] LABS: Anion Gap 9 mmol/L; Blood Urea Nitrogen 11 mg/dL (9-20); Calcium 9.2 mg/dL (8.4-10.2); Carbon Dioxide 26 mmol/L (22-30); Chloride 103 mmol/L (98-107); Glucose 84 mg/dL (74-99); Potassium 4.5 mmol/L (3.5-5.1); Sodium 138 mmol/L (137-145)
[2018-05-26] MEDS: HEPARIN SODIUM,PORCINE 5,000 UNIT/ML 1 ML VIAL SQ SCH (09:37)
[2018-05-26] MEDS: amLODIPine 5 MG TAB PO SCH (09:37)
[2018-05-26] MEDS: ASPIRIN 325 MG TAB PO SCH (09:37)
[2018-05-26] MEDS: LISINOPRIL 10 MG TAB PO SCH (09:37)
[2018-05-26] MEDS: NICOTINE 21MG/24HR PATCH TRANSDERM SCH ×2 (09:38→09:39)
[2018-05-26] MEDS: ALPRAZolam 0.5 MG TAB PO PRN (09:38)
[2018-05-26 09:52] VITALS: RESP 18; TEMP 97
--- NOTE | 2018-05-26 12:18 | P.DS ---
Providers Date of admission: 05/22/18 13:39 Attending physician: Herbie Davis Consults: 05/22/18 13:40 Consult Physician Urgent Consulting Provider: Kya Tam Consult Reason/Comments: cva Do you want consulting provider notified?: Yes 05/25/18 08:00 Consult Physician Urgent Consulting Provider: Christopher Lewis Consult Reason/Comments: Right medial rectus palsy, acute. Do you want consulting provider notified?: Yes Primary care physician: Stated None Hospital Course: 65-year-old admitted with left-sided facial droop had infarction in the posterior horn of the interval The Right Side. Patient Left-Sided Facial Droop Did Improve Patient Will Need Rehabilitation at Home. Patient Apparently Had Some Medial Rectus Weakness Because of Which neurology recommended ophthalmology evaluation ophthalmology valid the patient will follow him as an outpatient. Patient does have history of hypertension start taking his lisinopril patient will be resumed on lisinopril patient will be discharged on aspirin and a statin. His LDL is below 100. Patient will be discharged today. PHYSICAL EXAMINATION: GENERAL: The patient is alert and oriented x3, not in any acute distress. Well developed, well nourished. HEENT: Pupils are round and equally reacting to light. EOMI. No scleral icterus. No conjunctival pallor. Normocephalic, atraumatic. No pharyngeal erythema. No thyromegaly. CARDIOVASCULAR: S1 and S2 present. No murmurs, rubs, or gallops. PULMONARY: Chest is clear to auscultation, no wheezing or crackles. ABDOMEN: Soft, nontender, nondistended, normoactive bowel sounds. No palpable organomegaly. MUSCULOSKELETAL: No joint swelling or deformity. EXTREMITIES: No cyanosis, clubbing, or pedal edema. NEUROLOGICAL: Gross neurological examination did not reveal any new focal deficits. Facial droop appears to have improved and medial rectus palsy appears to have improved. SKIN: No rashes. Acute CVA with left-sided facial droop, difficulty in speech, Blurry vision and is found to have cerebrovascular accident ischemic stroke involving posterior horn of the right internal capsule which is a subcortical stroke Essential hypertension uncontrolled at home due to noncompliance with medications s Patient Condition at Discharge: Serious Plan - Discharge Summary New Discharge Prescriptions: New Aspirin 81 mg PO DAILY #30 chewable Atorvastatin [Lipitor] 40 mg PO HS #30 tablet Lisinopril [Zestril] 20 mg PO DAILY #30 tab Discharge Medication List Aspirin 81 mg PO DAILY #30 chewable 05/26/18 [Rx] Atorvastatin [Lipitor] 40 mg PO HS #30 tablet 05/26/18 [Rx] Lisinopril [Zestril] 20 mg PO DAILY #30 tab 05/26/18 [Rx] Follow up Appointment(s)/Referral(s): Kya Tam MD [STAFF PHYSICIAN] - 1 Week Christopher Lewis MD [STAFF PHYSICIAN] - 1 Week Lauren Umanzor MD [STAFF PHYSICIAN] - 1 Week None,Stated [Primary Care Provider] - 1-2 days Patient Instructions/Handouts: Stroke (DC) Activity/Diet/Wound Care/Special Instructions: Dr. Lewis to see patient, need neurology clearance for discharge. Discharge Disposition: HOME WITH HOME HEALTH SERVICES
[2018-05-26 12:59] VITALS: BP 143/97; PULSE 75
== END 2018-05-26 17:48 | disposition home health service (06) | DRG 66 ==
LOC: EC 12:23 → 6SEL 13:39
PROVIDERS: ADMIT Internal Medicine; ATTEND Internal Medicine
DX: I63.8 Other cerebral infarction (principal); R47.01 Aphasia; R29.810 Facial weakness; H53.2 Diplopia; F41.9 Anxiety disorder, unspecified; I16.0 Hypertensive urgency; I10 Essential (primary) hypertension; G89.29 Other chronic pain; R29.703 NIHSS score 3; T46.5X6A Underdosing of other antihypertensive drugs, initial encounter; M47.9 Spondylosis, unspecified; H26.9 Unspecified cataract; H55.00 Unspecified nystagmus; R47.9 Unspecified speech disturbances; H53.8 Other visual disturbances; R26.9 Unspecified abnormalities of gait and mobility; H49.881 Other paralytic strabismus, right eye; H55.09 Other forms of nystagmus; H55.89 Other irregular eye movements; H35.039 Hypertensive retinopathy, unspecified eye; R40.2362 Coma scale, best motor response, obeys commands, at arrival to emergency department; R40.2142 Coma scale, eyes open, spontaneous, at arrival to emergency department; R40.2252 Coma scale, best verbal response, oriented, at arrival to emergency department; F17.210 Nicotine dependence, cigarettes, uncomplicated; Z85.828 Personal history of other malignant neoplasm of skin; Z88.1 Allergy status to other antibiotic agents; Z88.0 Allergy status to penicillin; Z91.14 Patient's other noncompliance with medication regimen; M54.9 Dorsalgia, unspecified
CPT/HCPCS: 36415; 70450; 70496; 70498; 70551; 71046; 80048; 80053; 80061; 82550; 82553; 84484; 85025; 85610; 85730; 93005; 93306; 95819; 96361; 96374; 99285

== ENCOUNTER 2018-07-17 16:45 | Inpatient (IN) | payer MEDICARE, OTHER ==
[2018-07-17] MEDS ORDERED: SODIUM CHLORIDE 0.9% 500 ML IV ONE (17:26)
[2018-07-17] MEDS ORDERED: IPRATROPIUM 0.5 MG/2.5 ML NEBU INHALATION STA (17:36)
[2018-07-17] MEDS ORDERED: DEXAMETHASONE SOD PHOSPHATE 10 MG/ML 1 ML VIAL IV STA (17:36)
[2018-07-17] MEDS ORDERED: ALBUTEROL NEBULIZED 2.5 MG/3 ML INHALATION STA (17:36)
--- NOTE | 2018-07-17 17:39 | ED ---
General Adult HPI - General Chief complaint: Fall Stated complaint: Fall Source: patient Mode of arrival: EMS Limitations: no limitations - History of Present Illness Initial comments: Dictation was produced using [employer] dictation software. please excuse any grammatical, word or spelling errors. Chief Complaint: 68-year-old male past medical history of COPD presents after fall. History of Present Illness: 68-year-old male past medical history of COPD presents after fall. Patient states he was on a small ladder trying to clean his ceiling fan when he fell off the ladder landing on his back. Denies loss of consciousness. Patient states he has severe pain to his back. Patient has a past medical history of CVA, COPD. Patient denies any lower extremity symptoms. Denies any pain and erosive his body cites his back. Denies any saddle anesthesia. Patient has localized pain to his left thoracic back area. Denies any abdominal pain. The ROS documented in this emergency department record has been reviewed and confirmed by me. Those systems with pertinent positive or negative responses have been documented in the HPI. All other systems are other negative and/or noncontributory. EMS transfer patient from home. They gave him 10 mg of IV morphine. C-collar was applied by EMS. - Related Data Previous Rx's Medication Instructions Recorded Aspirin 81 mg PO DAILY #30 chewable 05/26/18 Lisinopril [Zestril] 20 mg PO DAILY #30 tab 05/26/18 Allergies Allergy/AdvReac Type Severity Reaction Status Date / Time ciprofloxacin [From Cipro] Allergy Unknown Verified 07/17/18 17:28 Penicillins Allergy Unknown Verified 07/17/18 17:28 Review of Systems ROS Statement: Those systems with pertinent positive or pertinent negative responses have been documented in the HPI. ROS Other: All systems not noted in ROS Statement are negative. Past Medical History Past Medical History: Cancer, CVA/TIA, Hypertension Additional Past Medical History / Comment(s): chronic back issues, skin CA, "minor stroke" 05/23/2017 History of Any Multi-Drug Resistant Organisms: None Reported Additional Past Surgical History / Comment(s): skin ca left ear, right ear, bilat shoulder, and right FA Past Psychological History: Anxiety Smoking Status: Current every day smoker Past Alcohol Use History: Daily Past Drug Use History: None Reported General Exam - General Exam Comments Initial Comments: PHYSICAL EXAM: General Impression: Alert and oriented x3, not in acute distress HEENT: Normocephalic atraumatic, extra-ocular movements intact, pupils equal and reactive to light bilaterally, mucous membranes moist. Cardiovascular: Heart regular rate and rhythm, S1&S2 audible, no murmurs, rubs or gallops Chest: Diminished lung sounds bilaterally, diminished on the left more than the right Abdomen: Bowel sounds present, abdomen soft, non-tender, non-distended, no organomegaly Musculoskeletal: Pulses present and equal in all extremities, no peripheral edema, tenderness to the left thoracic area Motor: Moves all extremity is grossly Neurological: CN II-XII grossly intact, no focal motor or sensory deficits noted Skin: Intact with no visualized rashes Psych: Normal affect and mood Limitations: no limitations Course Vital Signs 07/17/18 07/17/18 07/17/18 17:00 17:50 18:27 Temperature 100.4 F H Pulse Rate 104 H 85 88 Respiratory 20 18 18 Rate Blood Pressure 198/96 179/91 O2 Sat by Pulse 96 95 Oximetry 07/17/18 07/17/18 07/17/18 18:48 19:02 19:09 Temperature Pulse Rate 90 117 H 78 Respiratory 18 20 18 Rate Blood Pressure 203/91 O2 Sat by Pulse 100 Oximetry 07/17/18 07/17/18 07/17/18 19:57 20:44 20:57 Temperature 98.0 F Pulse Rate 96 87 96 Respiratory 18 18 20 Rate Blood Pressure 193/106 189/102 187/96 O2 Sat by Pulse 95 95 95 Oximetry Medical Decision Making - Medical Decision Making ED course: 68yo male presents after fall. He is not on blood thinners. As upon arrival shows temperature 100.4, heart rate of 104, blood pressure 190/96, rest of vital signs within normal limits. Laboratory evaluation obtained. Patient has a leukocytosis of 13.9 likely secondary to stress. Coag panel unremarkable. Metabolic panel is negative. Urinalysis is negative per it; alcohol is 70. Chest x-ray was obtained showing no infiltrate at the left lung base. Given history of fall this may suggest pulmonary contusion. Pen scan was obtained. There is no findings of the brain or C-spine. CT chest abdomen and pelvis shows soft tissue area on the left side without pneumothorax. There are left rib fractures 01/09/2010 rib spaces. There is also left transverse process fractures of L1 and L2. No findings seen on the lung windows. Patient given lidocaine patch. He is given IV analgesics. Discussed patient case with trauma surgeon who is willing to accept the admission. I do not believe patient requires intensive care unit given that he is hemodynamically stable and pain is controlled with IV analgesics. Patient ordered for incentive spirometer. In having signs of COPD as well as given steroids and breathing treatments. Patient also given Zithromax for COPD exacerbation - Lab Data Result diagrams: 07/17/18 17:45 07/17/18 17:45 Lab Results 07/17/18 07/17/18 07/17/18 Range/Units 17:45 17:45 17:45 WBC 13.9 H (3.8-10.6) k/uL RBC 4.41 (4.30-5.90) m/uL Hgb 13.5 (13.0-17.5) gm/dL Hct 40.7 (39.0-53.0) % MCV 92.2 (80.0-100.0) fL MCH 30.7 (25.0-35.0) pg MCHC 33.3 (31.0-37.0) g/dL RDW 13.8 (11.5-15.5) % Plt Count 265 (150-450) k/uL Neutrophils % 80 % Lymphocytes % 9 % Monocytes % 7 % Eosinophils % 3 % Basophils % 0 % Neutrophils # 11.1 H (1.3-7.7) k/uL Lymphocytes # 1.3 (1.0-4.8) k/uL Monocytes # 1.0 (0-1.0) k/uL Eosinophils # 0.4 (0-0.7) k/uL Basophils # 0.0 (0-0.2) k/uL PT 9.9 (9.0-12.0) sec INR 1.0 (<1.2) APTT 21.3 L (22.0-30.0) sec Sodium 132 L (137-145) mmol/L Potassium 4.3 (3.5-5.1) mmol/L Chloride 98 (98-107) mmol/L Carbon Dioxide 22 (22-30) mmol/L Anion Gap 12 mmol/L BUN 12 (9-20) mg/dL Creatinine 0.70 (0.66-1.25) mg/dL Est GFR (CKD-EPI)AfAm >90 (>60 ml/min/1.73 sqM) Est GFR (CKD-EPI)NonAf >90 (>60 ml/min/1.73 sqM) Glucose 96 (74-99) mg/dL Calcium 9.1 (8.4-10.2) mg/dL Total Bilirubin 1.1 (0.2-1.3) mg/dL AST 43 (17-59) U/L ALT 65 (21-72) U/L Alkaline Phosphatase 68 (38-126) U/L Total Protein 7.4 (6.3-8.2) g/dL Albumin 4.3 (3.5-5.0) g/dL Urine Color Urine Appearance (Clear) Urine pH (5.0-8.0) Ur Specific [place] (1.001-1.035) Urine Protein (Negative) Urine Glucose (UA) (Negative) Urine Ketones (Negative) Urine Blood (Negative) Urine Nitrite (Negative) Urine Bilirubin (Negative) Urine Urobilinogen (<2.0) mg/dL Ur Leukocyte Esterase (Negative) Serum Alcohol 17 mg/dL 07/17/18 Range/Units 18:25 WBC (3.8-10.6) k/uL RBC (4.30-5.90) m/uL Hgb (13.0-17.5) gm/dL Hct (39.0-53.0) % MCV (80.0-100.0) fL MCH (25.0-35.0) pg MCHC (31.0-37.0) g/dL RDW (11.5-15.5) % Plt Count (150-450) k/uL Neutrophils % % Lymphocytes % % Monocytes % % Eosinophils % % Basophils % % Neutrophils # (1.3-7.7) k/uL Lymphocytes # (1.0-4.8) k/uL Monocytes # (0-1.0) k/uL Eosinophils # (0-0.7) k/uL Basophils # (0-0.2) k/uL PT (9.0-12.0) sec INR (<1.2) APTT (22.0-30.0) sec Sodium (137-145) mmol/L Potassium (3.5-5.1) mmol/L Chloride (98-107) mmol/L Carbon Dioxide (22-30) mmol/L Anion Gap mmol/L BUN (9-20) mg/dL Creatinine (0.66-1.25) mg/dL Est GFR (CKD-EPI)AfAm (>60 ml/min/1.73 sqM) Est GFR (CKD-EPI)NonAf (>60 ml/min/1.73 sqM) Glucose (74-99) mg/dL Calcium (8.4-10.2) mg/dL Total Bilirubin (0.2-1.3) mg/dL AST (17-59) U/L ALT (21-72) U/L Alkaline Phosphatase (38-126) U/L Total Protein (6.3-8.2) g/dL Albumin (3.5-5.0) g/dL Urine Color Light Yellow Urine Appearance Clear (Clear) Urine pH 6.0 (5.0-8.0) Ur Specific [place] 1.005 (1.001-1.035) Urine Protein Negative (Negative) Urine Glucose (UA) Negative (Negative) Urine Ketones Negative (Negative) Urine Blood Negative (Negative) Urine Nitrite Negative (Negative) Urine Bilirubin Negative (Negative) Urine Urobilinogen <2.0 (<2.0) mg/dL Ur Leukocyte Esterase Negative (Negative) Serum Alcohol mg/dL Disposition Clinical Impression: Rib fractures Disposition: ADMITTED IP TO THIS HOSP Referrals: None,Stated [Primary Care Provider] - 1-2 days Time of Disposition: 21:18
[2018-07-17 18:00] LABS: Basophils % (A) 0 %; Eosinophils # (A) 0.4 k/uL (0-0.7); Eosinophils % (A) 3 %; HCT 40.7 % (39.0-53.0); HGB 13.5 gm/dL (13.0-17.5); Lymphocytes # (A) 1.3 k/uL (1.0-4.8); Lymphocytes % (A) 9 %; MCH 30.7 pg (25.0-35.0); MCHC 33.3 g/dL (31.0-37.0); MCV 92.2 fL (80.0-100.0); Mean Platelet Volume 6.3; Monocytes % (A) 7 %; Neutrophils # (A) 11.1 k/uL (1.3-7.7); Neutrophils % (A) 80 %; Platelet Count 265 k/uL (150-450); RBC 4.41 m/uL (4.30-5.90); RDW 13.8 % (11.5-15.5); WBC 13.9 k/uL (3.8-10.6)
--- NOTE | 2018-07-17 18:17 | XR ---
EXAMINATION TYPE: XR chest 1V portable DATE OF EXAM: 07/17/2018 COMPARISON: 05/22/2018 HISTORY: Chest pain. Fall. TECHNIQUE: Single frontal view of the chest is obtained. FINDINGS: There is no heart failure. There is some mild interstitial infiltrate at the lateral left lung base. Heart size is normal. There is no sign of pneumothorax. There is some lucency along the la teral left ribs. I see no obvious rib fracture. IMPRESSION: There is possible soft tissue air lateral to the left lower ribs. There is a new infiltr ate at the left lung base compared to old exam. No obvious pneumothorax. Normal heart.
[2018-07-17 18:20] LABS: ALT 65 U/L (21-72); AST 43 U/L (17-59); Albumin 4.3 g/dL (3.5-5.0); Alcohol 17 mg/dL; Alkaline Phosphatase 68 U/L (38-126); Anion Gap 12 mmol/L; Blood Urea Nitrogen 12 mg/dL (9-20); Calcium 9.1 mg/dL (8.4-10.2); Carbon Dioxide 22 mmol/L (22-30); Chloride 98 mmol/L (98-107); Glucose 96 mg/dL (74-99); Potassium 4.3 mmol/L (3.5-5.1); Sodium 132 mmol/L (137-145); Total Bilirubin 1.1 mg/dL (0.2-1.3); Total Protein 7.4 g/dL (6.3-8.2)
[2018-07-17 18:42] LABS: Prothrombin Time 9.9 sec (9.0-12.0)
[2018-07-17 18:50] LABS: Partial Thromboplastin Time 21.3 sec (22.0-30.0)
--- NOTE | 2018-07-17 19:57 | CT ---
EXAMINATION TYPE: CT ChestAbdPelvis w con DATE OF EXAM: 07/17/2018 COMPARISON: None HISTORY: Fall from aprox. 3 feet. Left sided back and neck pain CT DLP: 742 mGycm Automated exposure control for dose reduction was used. CONTRAST: CT scan of the chest, abdomen and pelvis is performed without Oral Contrast and with IV Contrast, pat ient injected with 100 mL of Isovue 300. FINDINGS: The lungs are clear of infiltrate. There is no pleural effusion or pneumothorax. There is minimal ple ural thickening at the left posterior lung base. There is subcutaneous air along the left lateral rody st wall. The liver and spleen appear normal. Bile ducts are not dilated. There is hiatal hernia. Gallbladder a ppears normal. There is no pancreatic mass. Kidneys show satisfactory contrast opacification. There i s no hydronephrosis. There is no sign of pneumoperitoneum. There is no intestinal wall thickening. Th ere are no dilated loops. Bladder distends fairly smoothly. There are small bladder diverticula at th e base of the urinary bladder. There is no evidence of a hernia on the abdominal wall. There is no si gn of pneumoperitoneum. There is some anterior wedging of T12 vertebra with 15% loss of height. This is probably old. There is spurring in the lumbar spine. Sternum is intact. There is nondisplaced fracture of the left transverse process of L1 and L2. There is nondisplaced fra cture left posterior 11th 10th ribs. IMPRESSION: Soft tissue air on the left side. No pneumothorax seen. Left rib fractures. Left transver se process spinal fractures. Small hiatal hernia.
--- NOTE | 2018-07-17 19:59 | CT ---
EXAMINATION TYPE: CT brain jerson hines DATE OF EXAM: 07/17/2018 COMPARISON: None HISTORY: Fall from aprox. 3 feet. Left sided back and neck pain CT DLP: 1548.7 mGycm Automated exposure control for dose reduction was used. TECHNIQUE: CT scan of the head and cervical spine are performed without contrast. FINDINGS: There is some cerebral cortical atrophy. There is mild hypodensity in the periventricular white matter. There is no mass effect nor midline shift. There is no sign of intracranial hemorrhage . The calvarium is intact. Cervical vertebra have normal alignment. There is some narrowing of C4-5 C5-6 disc spaces with spurri ng. Facet joints are intact. The skull base is intact. IMPRESSION: Mild spondylotic changes in the cervical spine. No fracture. Cerebral atrophy and mild chronic small vessel ischemia. No acute intracranial abnormality. There is progression of the white matter changes in the brain compared to 05/23/2018.
[2018-07-17] MEDS ORDERED: LIDOCAINE 5% PATCH TOPICAL STA (20:24)
[2018-07-17 20:29] LABS: Appearance,Urine Clear (Clear); Bilirubin,Urine Negative (Negative); Blood,Urine Negative (Negative); Color,Urine Light Yellow; Glucose,Urine (UA) Negative (Negative); Ketones,Urine Negative (Negative); Leukocyte Esterase,Urine Negative (Negative); Nitrite,Urine Negative (Negative); Protein,Urine Negative (Negative); Specific Gravity,Urine 1.005 (1.001-1.035); Urobilinogen,Urine <2.0 mg/dL (<2.0)
[2018-07-17] MEDS ORDERED: NALOXONE 0.4 MG/ML 1 ML VIAL IV PRN (21:11)
[2018-07-17] MEDS ORDERED: AZITHROMYCIN 500 MG TAB PO STA (21:17)
[2018-07-17] MEDS: HYDROcodone/APAP 5-325MG 1 EACH TAB PO SCH (21:30)
[2018-07-17] MEDS ORDERED: LORazepam 2 MG/ML INJ IV STA (22:56)
[2018-07-18] MEDS ORDERED: ACETAMINOPHEN TAB 325 MG TAB PO PRN (01:02)
[2018-07-18] MEDS ORDERED: IBUPROFEN 400 MG TAB PO PRN (01:05)
[2018-07-18] MEDS ORDERED: MORPHINE SULFATE 4 MG/ML SYRINGE IV PRN (01:08)
--- NOTE | 2018-07-18 01:18 | P.CONS ---
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 Patient was trying to fix something on the ceiling and that he felt little bit unsteady try to get down from the ladder and fell from the last step backwards and hit his back. There is no head or neck trauma or loss of consciousness. Patient denies any dizziness or lightheadedness. Denied any palpitations shortness of breath or chest pain just before the fall. He does not feel unsteady on his feet lately. Does not have any dizziness closes his eyes. He' s been in usual state of health lately. He feels that the fall was due to ladders were not position well and there were unsteady and then get up under him. In emergency department multiple imaging showed that left posterior part of the 10th and 11th rib were with nondisplaced fractures. CT of the head shows chronic ischemic changes and CT of the neck was unremarkable. CT of the abdomen and pelvis otherwise unremarkable. Patient currently except the pain over the posterior ribs on the left side does not complain of any other focal pain. He is ambulating in the room currently without difficulties. He describes some shortness of breath related to inability to take a deep breath due to pain but there was no preceding shortness of breath. He does not have any significant cough or expectoration. There is no any fever chills night sweats or wheezing. Chest x-ray shows some questionable infiltrate on the left base of the lungs but CT did not reveal infiltrate that show slightly thickened pleura on that side. Patient had markedly elevated blood pressure likely related to stress and pain. He usually takes lisinopril at home. Patient used to take Percocet up to couple of years ago. He also used to take Xanax and Valium not currently on those medications. He had 2 beers today. Denies any history of significant alcoholism or withdrawals or similar. Review of Systems REVIEW OF SYSTEMS: CONSTITUTIONAL: No fever or chills HEENT: No changes in vision or voice CARDIOVASCULAR: no chest pain or abnormal heart beats, or any swelling in ankles or feet. RESPIRATORY: No wheezing or coughing. GASTROINTESTINAL: No abdominal pain, no nausea no vomiting no constipation or diarrhea GENITOURINARY: no any urinary urgency, frequency or burning, and there has been no blood in her urine. no flank pain. MUSCULOSKELETAL: notes full range of motion of all her joints without pain or swelling. NEUROLOGICAL: , no headache. no vision changes, or fainting. No numbness or tingling. Psychiatric: Awake alert oriented 3, thought process and judgment intact, no depression or anxiety Dermatological: Complains of several skin changes over his face but otherwise no rash or or cyanosis Past Medical History Past Medical History: Cancer, CVA/TIA, Hypertension Additional Past Medical History / Comment(s): chronic back issues, skin CA, "minor stroke" 05/23/2017 History of Any Multi-Drug Resistant Organisms: None Reported Additional Past Surgical History / Comment(s): skin ca left ear, right ear, bilat shoulder, and right FA Past Psychological History: Anxiety Smoking Status: Current every day smoker Past Alcohol Use History: Daily Past Drug Use History: None Reported Medications and Allergies Home Medications Medication Instructions Recorded Confirmed Type Aspirin 81 mg PO DAILY #30 chewable 05/26/18 07/17/18 Rx Lisinopril [Zestril] 20 mg PO DAILY #30 tab 05/26/18 07/17/18 Rx Allergies Allergy/AdvReac Type Severity Reaction Status Date / Time ciprofloxacin [From Cipro] Allergy Unknown Verified 07/17/18 17:28 Penicillins Allergy Unknown Verified 07/17/18 17:28 Physical Exam Vitals: Vital Signs Temp Pulse Resp BP Pulse Ox 07/17/18 23:34 98.4 F 79 20 169/90 97 07/17/18 22:48 98.5 F 82 18 198/97 97 07/17/18 21:35 98.3 F 90 20 185/96 95 07/17/18 20:57 96 20 187/96 95 07/17/18 20:44 87 18 189/102 95 07/17/18 19:57 98.0 F 96 18 193/106 95 07/17/18 19:09 78 18 203/91 100 07/17/18 19:02 117 H 20 07/17/18 18:48 90 18 07/17/18 18:27 88 18 07/17/18 17:50 85 18 179/91 95 07/17/18 17:00 100.4 F H 104 H 20 198/96 96 Intake and Output 07/17/18 07/17/18 07/18/18 14:59 22:59 06:59 Other: Weight 68.039 kg Vital Signs: I have reviewed the vital signs. GENERAL: Well-nourished, Well-developed , no apparent distress, cooperative Eyes: PERRL, extraoculry movements intact, clear conjunctiva Head: : Atraumatic external nose and ears, oropharyngeal mucosa is moist without lesions or exudates Neck: Symmetric, trachea midline, No thyromegaly, no masses or neck vain pulsation, no neck rigidity CVS: +S1/S2, No murmurs or gallops. Peripheral pulses 2+ and equal in all extremities. RESP: Unlabored respiratory effort. Clear to auscultation bilaterally. Abdomen: Bowel sounds present in all 4 quadrants, Soft to palpation, Nontender/ Nondistended, No hepatosplenomegaly, no hernias or masses, no CVA tnderness Musculoskeletal: Extremities w/o deformity, No cyanosis or clubbing, no joint swelling Skin: Warm, Dry. No rashes. Cor no down in left supraclavicular, several seborrheic hyperkeratotic changes over his skin Neuro: medical manager II-XII grossly intact except mild left lower face weakness, motor strenght 5/5 i upper and lower extremities, no clonus, patellar DTRs 2+ and sympetrical, finger to nose and heel to patel are intact fine motor movements are intact gait is steady Psych: Awake, Alert, & Oriented (AAO) x3 Appropriate mood and affect Results CBC & Chem 7: 07/17/18 17:45 07/17/18 17:45 Labs: Abnormal Lab Results - Last 24 Hours (Table) 07/17/18 07/17/18 07/17/18 Range/Units 17:45 17:45 17:45 WBC 13.9 H (3.8-10.6) k/uL Neutrophils # 11.1 H (1.3-7.7) k/uL APTT 21.3 L (22.0-30.0) sec Sodium 132 L (137-145) mmol/L Abdominal x-ray: report reviewed CT scan - abdomen: report reviewed CT scan - chest: report reviewed CT Scan - head: report reviewed CT scan - pelvis: report reviewed Assessment and Plan Plan: 1. Hypertension with elevated blood pressure and hypertensive urgency related to stress and pain in Pain control Restart home medication lisinopril tonight 2. COPD with ongoing smoking Patient is not in acute COPD exacerbation No need for steroids We'll encourage deep breaths incentive spirometer increase activity to a when necessary Nicotine for history of tobacco addiction 3. Ribs fracture Pain medication adjusted Lidocaine patch Increase activity and incentive spirometer 4. Facial and cervical skin lesions Patient instructed to obtain dermatological evaluation that have dose biopsied and removed on outpatient basis 5. Fall History of recent CVA Slightly worsening ischemic chronic changes on the CAT scan We will obtain physical occupational therapy to evaluate for gait balance Obtain B12 level 6. Cerebrovascular disease with recent CVA Continue aspirin Patient refused statin in the past Patient is a full code His son is a surrogate decision maker Expected two or less midnight stay
[2018-07-18 01:25] VITALS: BMI 22.8
[2018-07-18] MEDS: LISINOPRIL 20 MG TAB PO SCH (01:39)
[2018-07-18] MEDS: HYDROcodone/APAP 5-325MG 1 EACH TAB PO SCH ×6 (01:39→18:42)
[2018-07-18] MEDS: NICOTINE 14MG/24HR PATCH TRANSDERM SCH (08:18)
[2018-07-18] MEDS: MORPHINE SULFATE 2 MG/ML SYRINGE IV PRN ×2 (08:19→21:39)
[2018-07-18] MEDS: ALPRAZolam 0.25 MG TAB PO PRN ×2 (11:47→17:26)
--- NOTE | 2018-07-18 12:54 | P.PN ---
Progress Note - Text Progress Note Date: 07/18/18 Hospitalist interval note: No charge is associated with this note for no with charge see consult placed by Dr. Dietz Patient seen and examined at bedside. He is complaining of rib and back pain. He is feeling nervous and having anxiety. He also complains of intermittent difficulty urinating. He also complains of difficulty moving his bowels. He states he is also had weight loss. I spoke with him extensively about obtaining a PCP after discharge and that he will need to have these worked out an outpatient basis. He is nervous about being sent home and states he has nobody at home to help him with his pain today. However he is ambulating without difficulty and moving in bed without any pain. I have discussed with him the fact that he is okay to be discharged home today as his blood pressure is much improved. He had not been taking his medications at home. I did send through prescriptions to [facility] for his lisinopril 20 mg by mouth daily as well as Colace 100 mg daily. I've also added Dr. Preston's information to his discharge as his is who he would like to see for his PCP. He also states that he has been having panic attacks at home. I have asked him to establish with a PCP for further recommendations, as I would not want to start a medication that needs monitoring without ensuring that he has someone to follow with. Vital signs: Temperature 97.6, pulse 71, respirations 18, blood pressure 154/84 , 95% on room air General: non toxic, no distress, appears at stated age Derm: Multiple skin lesions warm, dry Head: atraumatic, normocephalic, symmetric Eyes: EOMI, no lid lag, anicteric sclera Mouth: no lip lesion, mucus membranes moist Cardiovascular: S1S2 reg, no murmur, positive posterior tibial pulse bilateral, Lungs: CTA bilateral, no rhonchi, no rales , no accessory muscle use Psych: Alert, oriented, anxious Assessment and plan: Left-sided rib fractures 11 and 12 Nondisplaced fracture of the left transverse process of L1 and L2 Hypertensive urgency, resolved Urinary urgency Constipation Anxiety attack Possible weight loss Plan will be to continue lisinopril 20 mg daily at home, establish with a PCP for prostate exam as patient is currently refusing this and possible need for treatment of BPH. I have added Colace 100 mg once daily. I've also encouraged him to follow-up with PCP regarding possible panic attacks and weight loss. At this point in time I do not feel comfortable starting patient on any anti- anxiety medications without him having adequate follow-up with PCP. Medically stable for discharge at the discretion of surgery.
[2018-07-18] MEDS: IPRATROPIUM-ALBUTEROL 3 ML NEB INHALATION PRN ×2 (13:28→19:30)
--- NOTE | 2018-07-18 14:41 | P.GSHP ---
History of Present Illness H&P Date: 07/18/18 This is a 68-year-old male who presented as a trauma to the emergency room with a chief complaint of a fall off of a chair and chest pain. He was found to have nondisplaced rib fractures. He satting 90% on room air. He does have a history of COPD. He also has a history of CVA he apparently was standing on his chair when he lost his balance. He has a GCS of 15 he did not hit his head he had no loss of consciousness. He's not complaining of any pain anywhere else. Past Medical History Past Medical History: Cancer, CVA/TIA, Hypertension Additional Past Medical History / Comment(s): chronic back issues, skin CA, "minor stroke" 05/23/2017 History of Any Multi-Drug Resistant Organisms: None Reported Additional Past Surgical History / Comment(s): skin ca left ear, right ear, bilat shoulder, and right FA Past Psychological History: Anxiety Smoking Status: Current every day smoker Past Alcohol Use History: Daily Past Drug Use History: None Reported Medications and Allergies Home Medications Medication Instructions Recorded Confirmed Type Aspirin 81 mg PO DAILY #30 chewable 05/26/18 07/17/18 Rx Docusate [Colace] 100 mg PO DAILY #30 capsule 07/18/18 Rx Lisinopril [Zestril] 20 mg PO DAILY #30 tab 07/18/18 Rx Allergies Allergy/AdvReac Type Severity Reaction Status Date / Time ciprofloxacin [From Cipro] Allergy Unknown Verified 07/17/18 17:28 Penicillins Allergy Unknown Verified 07/17/18 17:28 Surgical - Exam Osteopathic Statement: *. No significant issues noted on an osteopathic structural exam other than those noted in the History and Physical/Consult. Vital Signs Temp Pulse Resp BP Pulse Ox 100.4 F H 104 H 20 198/96 96 07/17/18 17:00 07/17/18 17:00 07/17/18 17:00 07/17/18 17:00 07/17/18 17:00 - General well developed, well nourished, no distress - Neck trachea midline - Respiratory Mild tenderness to palpation normal expansion, normal respiratory effort - Abdomen Abdomen: soft, non tender - Neurologic normal coordination, normal sensation - Psychiatric oriented to time, oriented to person, oriented to place Results - Labs 07/17/18 17:45 07/17/18 17:45 Abnormal Lab Results - Last 24 Hours (Table) 07/17/18 07/17/18 07/17/18 Range/Units 17:45 17:45 17:45 WBC 13.9 H (3.8-10.6) k/uL Neutrophils # 11.1 H (1.3-7.7) k/uL APTT 21.3 L (22.0-30.0) sec Sodium 132 L (137-145) mmol/L Diabetes panel 07/17/18 Range/Units 17:45 Sodium 132 L (137-145) mmol/L Potassium 4.3 (3.5-5.1) mmol/L Chloride 98 (98-107) mmol/L Carbon Dioxide 22 (22-30) mmol/L BUN 12 (9-20) mg/dL Creatinine 0.70 (0.66-1.25) mg/dL Glucose 96 (74-99) mg/dL Calcium 9.1 (8.4-10.2) mg/dL AST 43 (17-59) U/L ALT 65 (21-72) U/L Alkaline Phosphatase 68 (38-126) U/L Total Protein 7.4 (6.3-8.2) g/dL Albumin 4.3 (3.5-5.0) g/dL Calcium panel 07/17/18 Range/Units 17:45 Calcium 9.1 (8.4-10.2) mg/dL Albumin 4.3 (3.5-5.0) g/dL Pituitary panel 07/17/18 Range/Units 17:45 Sodium 132 L (137-145) mmol/L Potassium 4.3 (3.5-5.1) mmol/L Chloride 98 (98-107) mmol/L Carbon Dioxide 22 (22-30) mmol/L BUN 12 (9-20) mg/dL Creatinine 0.70 (0.66-1.25) mg/dL Glucose 96 (74-99) mg/dL Calcium 9.1 (8.4-10.2) mg/dL Adrenal panel 07/17/18 Range/Units 17:45 Sodium 132 L (137-145) mmol/L Potassium 4.3 (3.5-5.1) mmol/L Chloride 98 (98-107) mmol/L Carbon Dioxide 22 (22-30) mmol/L BUN 12 (9-20) mg/dL Creatinine 0.70 (0.66-1.25) mg/dL Glucose 96 (74-99) mg/dL Calcium 9.1 (8.4-10.2) mg/dL Total Bilirubin 1.1 (0.2-1.3) mg/dL AST 43 (17-59) U/L ALT 65 (21-72) U/L Alkaline Phosphatase 68 (38-126) U/L Total Protein 7.4 (6.3-8.2) g/dL Albumin 4.3 (3.5-5.0) g/dL Assessment and Plan Assessment: Multiple nondisplaced rib fractures Plan: Patient is admitted for pain control and aggressive pulmonary toilet. He does have a history of COPD. Patient was counseled regarding importance of deep breathing incentive spirometry and coughing. He stated he understood and agreed. He is currently pulling 2 L on incentive spirometry. His pain is well- controlled with oral pain medication. He is stable for discharge however he does not have any help at home and he's available to help tomorrow. Anticipate discharge tomorrow morning.
[2018-07-18] MEDS ORDERED: LIDOCAINE 5% PATCH TOPICAL SCH (21:00)
[2018-07-19] MEDS: HYDROcodone/APAP 5-325MG 1 EACH TAB PO SCH ×4 (00:49→12:17)
[2018-07-19 06:12] VITALS: BP 107/68; TEMP 96
[2018-07-19] MEDS: LISINOPRIL 20 MG TAB PO SCH (08:28)
[2018-07-19] MEDS: NICOTINE 14MG/24HR PATCH TRANSDERM SCH (08:28)
[2018-07-19] MEDS: ALPRAZolam 0.25 MG TAB PO PRN (08:28)
[2018-07-19] MEDS ORDERED: ASPIRIN 81 MG PO SCH (09:00)
[2018-07-19] MEDS: IPRATROPIUM-ALBUTEROL 3 ML NEB INHALATION PRN (09:11)
[2018-07-19 09:15] VITALS: RESP 16
[2018-07-19 09:27] VITALS: PULSE 80
--- NOTE | 2018-07-19 10:17 | P.DS ---
Providers Date of admission: 07/17/18 21:12 Attending physician: Nikko Hays DO Consults: 07/17/18 21:54 Consult Physician Routine Consulting Provider: Charles Gilbert Reason/Comments: medical management Do you want consulting provider notified?: Yes Primary care physician: Stated None Hospital Course: Patient aditted S/P fall from chair with nondisplaced rib fx. Pain was well controlled and patient was pulling 2L on IS. discharged home in stable condition with instructions to follow up with PCP in 1-2 days Patient Condition at Discharge: Stable Plan - Discharge Summary New Discharge Prescriptions: New Docusate [Colace] 100 mg PO DAILY #30 capsule Lisinopril [Zestril] 20 mg PO DAILY #30 tab Hydrocodone/Acetaminophen [[place] 5-325] 1 tab PO Q4HR PRN 3 Days #18 tab PRN Reason: Pain Continue Aspirin 81 mg PO DAILY #30 chewable Discontinued Lisinopril [Zestril] 20 mg PO DAILY #30 tab Discharge Medication List Aspirin 81 mg PO DAILY #30 chewable 05/26/18 [Rx] Docusate [Colace] 100 mg PO DAILY #30 capsule 07/18/18 [Rx] Lisinopril [Zestril] 20 mg PO DAILY #30 tab 07/18/18 [Rx] Hydrocodone/Acetaminophen [[place] 5-325] 1 tab PO Q4HR PRN 3 Days #18 tab [Rx] Follow up Appointment(s)/Referral(s): Amaury Preston DO [REFERRING] - 1 Week None,Stated [Primary Care Provider] - 1-2 days Activity/Diet/Wound Care/Special Instructions: Activitey as tolerated, importance of IS use at home 10 times an hour was discussed with patient Discharge Disposition: HOME SELF-CARE
--- NOTE | 2018-07-19 10:31 | P.PN ---
Subjective Progress Note Date: 07/19/18 Patient is doing well today. Pain is improved. He has pain related to his rib fractures which is expected. He is pulling over 2l on IS. Objective - Vital Signs Vital signs: Vital Signs Temp 96.0 F L 07/19/18 06:12 Pulse 80 07/19/18 09:27 Resp 16 07/19/18 09:11 BP 107/68 07/19/18 06:12 Pulse Ox 96 07/19/18 06:12 Intake & Output 07/18/18 07/19/18 07/19/18 18:59 06:59 18:59 Intake Total 400 Output Total 400 75 Balance 400 -400 -75 Intake: Oral 400 Output: Urine 400 75 Other: Voiding Method Toilet Urinal # Voids 3 # Bowel Movements 0 - Constitutional General appearance: Present: cooperative - Respiratory Details: Nonlabored - Cardiovascular Rhythm: regular - Psychiatric Psychiatric: Present: A&O x's 3 - Labs CBC & Chem 7: 07/17/18 17:45 07/17/18 17:45 Assessment and Plan Assessment: Multiple nondisplaced rib fractures Plan: Patient is stable for discharge home from trauma surgical standpoint. No plans for intervention, He is pulling 2l on IS. Pain is controlled
== END 2018-07-19 15:09 | disposition home or self-care (01) | DRG 184 ==
LOC: EC 16:45 → 4MS4W 21:12
PROVIDERS: ADMIT Student in an Organized Health Care Education/Training Program; ATTEND Student in an Organized Health Care Education/Training Program
DX: S22.42XA Multiple fractures of ribs, left side, initial encounter for closed fracture (principal); S32.019A Unspecified fracture of first lumbar vertebra, initial encounter for closed fracture; S32.029A Unspecified fracture of second lumbar vertebra, initial encounter for closed fracture; J44.1 Chronic obstructive pulmonary disease with (acute) exacerbation; I69.354 Hemiplegia and hemiparesis following cerebral infarction affecting left non-dominant side; W07.XXXA Fall from chair, initial encounter; W11.XXXA Fall on and from ladder, initial encounter; D72.829 Elevated white blood cell count, unspecified; F17.200 Nicotine dependence, unspecified, uncomplicated; F41.0 Panic disorder [episodic paroxysmal anxiety]; F41.1 Generalized anxiety disorder; I10 Essential (primary) hypertension; I16.0 Hypertensive urgency; K59.00 Constipation, unspecified; Z79.82 Long term (current) use of aspirin; Z79.899 Other long term (current) drug therapy; Z88.1 Allergy status to other antibiotic agents; Z88.0 Allergy status to penicillin
CPT/HCPCS: 36415; 70450; 71045; 71260; 72125; 74177; 80053; 80320; 81003; 82607; 85025; 85610; 85730; 94640; 94644; 96361; 96374; 96375; 99285

== ENCOUNTER 2018-08-27 14:40 | Inpatient (IN) | payer MEDICARE, OTHER ==
[2018-08-27] MEDS ORDERED: SODIUM CHLORIDE 0.9% 1,000 ML IV STA (15:13)
--- NOTE | 2018-08-27 15:20 | ED ---
General Adult HPI - General Chief complaint: Neuro Symptoms/Deficit Stated complaint: DIZZINESS Time Seen by Provider: 08/27/18 14:55 Source: patient, RN notes reviewed, old records reviewed Mode of arrival: EMS Limitations: no limitations - History of Present Illness Initial comments: Patient is a pleasant 68-year-old male presenting to the emergency department with dizziness and visual problems. Patient has double vision. Patient has difficulty focusing on objects. Onset of symptoms was when he woke at 8:00 this morning. Last known well was last night. Patient feels dizzy and has difficulty with walking. Patient feels like he is stumbling. Patient has very mild headache. No recent headaches. Patient did have similar symptoms several months ago and was admitted to the hospital. Review of chart reveals patient was diagnosed with stroke. Patient denies any isolated area of weakness. - Related Data Previous Rx's Medication Instructions Recorded Aspirin 81 mg PO DAILY #30 chewable 05/26/18 Lisinopril [Zestril] 20 mg PO DAILY #30 tab 07/18/18 Allergies Allergy/AdvReac Type Severity Reaction Status Date / Time ciprofloxacin [From Cipro] Allergy Unknown Verified 08/27/18 15:06 Penicillins Allergy Unknown Verified 08/27/18 15:06 Review of Systems ROS Statement: Those systems with pertinent positive or pertinent negative responses have been documented in the HPI. ROS Other: All systems not noted in ROS Statement are negative. Constitutional: Denies: fever Eyes: Reports: vision change. Denies: eye pain ENT: Denies: ear pain Respiratory: Denies: cough Cardiovascular: Denies: chest pain Endocrine: Denies: fatigue Gastrointestinal: Denies: abdominal pain Genitourinary: Denies: dysuria Musculoskeletal: Denies: back pain Skin: Denies: rash Neurological: Reports: headache, abnormal gait, vertigo. Denies: weakness, confusion Past Medical History Past Medical History: Cancer, CVA/TIA, Hypertension Additional Past Medical History / Comment(s): chronic back issues, skin CA, "minor stroke" 05/23/2017 History of Any Multi-Drug Resistant Organisms: None Reported Additional Past Surgical History / Comment(s): skin ca left ear, right ear, bilat shoulder, and right FA Past Psychological History: Anxiety Smoking Status: Current every day smoker Past Alcohol Use History: Daily Past Drug Use History: None Reported General Exam Limitations: no limitations General appearance: alert, in no apparent distress Head exam: Present: atraumatic Eye exam: Present: PERRL, other (Right eye unable to move medial past midline. Left eye will occasionally spontaneously drift laterally.) ENT exam: Present: normal oropharynx Neck exam: Present: normal inspection Respiratory exam: Present: normal lung sounds bilaterally Cardiovascular Exam: Present: regular rate, normal rhythm GI/Abdominal exam: Present: soft. Absent: tenderness Extremities exam: Present: normal inspection Neurological exam: Present: alert, CN II-XII intact (Except for extraocular muscles examination, see above) Expanded Neurological exam: Present: protecting the airway Patient oriented to: Present: person, place, time Speech: Present: fluid speech Cranial nerves: EOM's Intact: Abnormal Right, Abnormal Left (See above), Facial Sensation: Normal Cerebellar function: Finger to Nose: Abnormal Left (Slight difficulty with finger-nose test on the left) Sensory exam: Upper Extremity Light Touch: Normal, Lower Extremity Light Touch: Normal Motor strength exam: RUE: 5, LUE: 5, RLE: 5, LLE: 5 Eye Response: (4) open spontaneously Motor Response: (6) obeys commands Verbal Response: (5) oriented Psychiatric exam: Present: normal affect, normal mood Skin exam: Present: normal color Course Vital Signs 08/27/18 08/27/18 14:43 15:50 Temperature 98.5 F 97.8 F Pulse Rate 85 79 Respiratory 16 18 Rate Blood Pressure 151/81 184/92 O2 Sat by Pulse 97 97 Oximetry EKG Findings - EKG Comments: EKG Findings:: Sinus rhythm at 81. WV 1:30. QRS 86. QT 392. QTC 455. Normal axis. Normal QRS. No acute ST change. Medical Decision Making - Medical Decision Making Patient reevaluated and unchanged. Patient does request something for anxiety. Patient updated on results and plan. Dr. davidson has been paged for hospital call. Neurology will be placed on consult. CTA is pending. - Lab Data Result diagrams: 08/27/18 14:48 08/27/18 14:48 Lab Results 08/27/18 08/27/18 08/27/18 Range/Units 14:48 14:48 14:48 WBC 10.7 H (3.8-10.6) k/uL RBC 4.48 (4.30-5.90) m/uL Hgb 14.0 (13.0-17.5) gm/dL Hct 43.3 (39.0-53.0) % MCV 96.7 (80.0-100.0) fL MCH 31.4 (25.0-35.0) pg MCHC 32.5 (31.0-37.0) g/dL RDW 13.8 (11.5-15.5) % Plt Count 319 (150-450) k/uL Neutrophils % 72 % Lymphocytes % 17 % Monocytes % 6 % Eosinophils % 4 % Basophils % 1 % Neutrophils # 7.7 (1.3-7.7) k/uL Lymphocytes # 1.8 (1.0-4.8) k/uL Monocytes # 0.6 (0-1.0) k/uL Eosinophils # 0.4 (0-0.7) k/uL Basophils # 0.1 (0-0.2) k/uL PT (9.0-12.0) sec INR (<1.2) APTT (22.0-30.0) sec Sodium 138 (137-145) mmol/L Potassium 4.0 (3.5-5.1) mmol/L Chloride 105 (98-107) mmol/L Carbon Dioxide 26 (22-30) mmol/L Anion Gap 7 mmol/L BUN 13 (9-20) mg/dL Creatinine 0.62 L (0.66-1.25) mg/dL Est GFR (CKD-EPI)AfAm >90 (>60 ml/min/1.73 sqM) Est GFR (CKD-EPI)NonAf >90 (>60 ml/min/1.73 sqM) Glucose 118 H (74-99) mg/dL Calcium 9.7 (8.4-10.2) mg/dL Total Bilirubin 1.2 (0.2-1.3) mg/dL AST 26 (17-59) U/L ALT 29 (21-72) U/L Alkaline Phosphatase 79 (38-126) U/L Total Creatine Kinase 123 (55-170) U/L CK-MB (CK-2) 2.6 H (0.0-2.4) ng/mL CK-MB (CK-2) Rel Index 2.1 Troponin I 0.017 (0.000-0.034) ng/mL Total Protein 7.3 (6.3-8.2) g/dL Albumin 4.2 (3.5-5.0) g/dL 08/27/18 Range/Units 14:48 WBC (3.8-10.6) k/uL RBC (4.30-5.90) m/uL Hgb (13.0-17.5) gm/dL Hct (39.0-53.0) % MCV (80.0-100.0) fL MCH (25.0-35.0) pg MCHC (31.0-37.0) g/dL RDW (11.5-15.5) % Plt Count (150-450) k/uL Neutrophils % % Lymphocytes % % Monocytes % % Eosinophils % % Basophils % % Neutrophils # (1.3-7.7) k/uL Lymphocytes # (1.0-4.8) k/uL Monocytes # (0-1.0) k/uL Eosinophils # (0-0.7) k/uL Basophils # (0-0.2) k/uL PT 9.8 (9.0-12.0) sec INR 1.0 (<1.2) APTT 23.7 (22.0-30.0) sec Sodium (137-145) mmol/L Potassium (3.5-5.1) mmol/L Chloride (98-107) mmol/L Carbon Dioxide (22-30) mmol/L Anion Gap mmol/L BUN (9-20) mg/dL Creatinine (0.66-1.25) mg/dL Est GFR (CKD-EPI)AfAm (>60 ml/min/1.73 sqM) Est GFR (CKD-EPI)NonAf (>60 ml/min/1.73 sqM) Glucose (74-99) mg/dL Calcium (8.4-10.2) mg/dL Total Bilirubin (0.2-1.3) mg/dL AST (17-59) U/L ALT (21-72) U/L Alkaline Phosphatase (38-126) U/L Total Creatine Kinase (55-170) U/L CK-MB (CK-2) (0.0-2.4) ng/mL CK-MB (CK-2) Rel Index Troponin I (0.000-0.034) ng/mL Total Protein (6.3-8.2) g/dL Albumin (3.5-5.0) g/dL - Radiology Data Radiology results: report reviewed (Computed tomography scan the brain shows no acute process) Disposition Clinical Impression: Cerebrovascular accident Disposition: ADMITTED IP TO THIS HOSP Is patient prescribed a controlled substance at d/c from ED?: No Referrals: None,Stated [Primary Care Provider] - 1-2 days Decision Time: 16:01
[2018-08-27 15:34] LABS: Basophils # (A) 0.1 k/uL (0-0.2); Basophils % (A) 1 %; Eosinophils # (A) 0.4 k/uL (0-0.7); Eosinophils % (A) 4 %; HCT 43.3 % (39.0-53.0); Lymphocytes # (A) 1.8 k/uL (1.0-4.8); Lymphocytes % (A) 17 %; MCH 31.4 pg (25.0-35.0); MCHC 32.5 g/dL (31.0-37.0); MCV 96.7 fL (80.0-100.0); Mean Platelet Volume 6.6; Monocytes # (A) 0.6 k/uL (0-1.0); Monocytes % (A) 6 %; Neutrophils # (A) 7.7 k/uL (1.3-7.7); Neutrophils % (A) 72 %; Platelet Count 319 k/uL (150-450); RBC 4.48 m/uL (4.30-5.90); RDW 13.8 % (11.5-15.5); WBC 10.7 k/uL (3.8-10.6)
[2018-08-27 15:38] LABS: ALT 29 U/L (21-72); AST 26 U/L (17-59); Albumin 4.2 g/dL (3.5-5.0); Alkaline Phosphatase 79 U/L (38-126); Anion Gap 7 mmol/L; Blood Urea Nitrogen 13 mg/dL (9-20); Calcium 9.7 mg/dL (8.4-10.2); Carbon Dioxide 26 mmol/L (22-30); Chloride 105 mmol/L (98-107); Glucose 118 mg/dL (74-99); Partial Thromboplastin Time 23.7 sec (22.0-30.0); Prothrombin Time 9.8 sec (9.0-12.0); Sodium 138 mmol/L (137-145); Total Bilirubin 1.2 mg/dL (0.2-1.3); Total Protein 7.3 g/dL (6.3-8.2)
--- NOTE | 2018-08-27 15:44 | CT ---
EXAMINATION TYPE: CT brain wo con for TPA DATE OF EXAM: 08/27/2018 COMPARISON: 07/17/2018 INDICATION: Visual disturbance DLP: 844.4 mGycm, Automated exposure control for dose reduction was used. CONTRAST: None CT of the brain is performed utilizing 3 mm thick sections through the posterior fossa and 3 mm thick sections through the remaining calvarium. Study is performed within 24 hours of arrival to the hosp ital. No abnormal hyperdensity is present to suggest an acute intracranial hemorrhage. No mass lesion is evident. No acute infarcts are evident. There is patchy to confluent periventricular white matter hypodensity, likely on the basis of chronic white matter ischemic changes. Findings are stable from comparison. Ventricles and sulci are appropriate for the patient age. Paranasal sinuses and mastoid air cells within the [id number] are clear. IMPRESSIONS: 1. Atrophy with periventricular white matter ischemic changes. 2. No acute intracranial hemorrhage.
[2018-08-27 15:57] LABS: Creatine Kinase MB 2.6 ng/mL (0.0-2.4); Troponin I 0.017 ng/mL (0.000-0.034)
[2018-08-27] MEDS ORDERED: ASPIRIN 325 MG TAB PO STA (16:01)
[2018-08-27] MEDS ORDERED: LORazepam 2 MG/ML INJ IV STA (16:01)
--- NOTE | 2018-08-27 16:44 | XR ---
EXAMINATION TYPE: XR chest 2V DATE OF EXAM: 08/27/2018 COMPARISON: 07/17/2018 INDICATION: Altered mental status history left rib fractures 5 weeks prior TECHNIQUE: Frontal and lateral views of the chest are obtained. FINDINGS: The heart size is normal. The pulmonary vasculature is normal. The lungs are clear. No displaced rib fractures are evident. No pneumothorax is evident. IMPRESSION: 1. No acute pulmonary process.
[2018-08-27] MEDS: SODIUM CHLORIDE 0.9% 1,000 ML IV SCH (17:27)
--- NOTE | 2018-08-27 17:51 | CT ---
EXAMINATION TYPE: CT angio head neck DATE OF EXAM: 08/27/2018 HISTORY: Visual Disturbance COMPARISON: 05/22/2018 CT DLP: 213.3 mGycm. Automated Exposure Control for Dose Reduction was Utilized. TECHNIQUE: CTA scan of the neck is performed with IV Contrast, patient injected with 65 mL of Isovue 370, axial images are obtained, coronal and sagittal reformatted images are reviewed. Three-D recons tructed images are created on an independent workstation and reviewed. FINDINGS: Carotid/Vascular Structures: Atheromatous plaquing is present at the bilateral carotid bifurcations. Significant flow-limiting stenosis is not evident. The vertebral arteries are codominant. [place]: Left internal carotid artery bifurcates into A1 and M1 segments. The right A1 segme nt is poorly visualized appears severely hypoplastic. The right middle cerebral artery branches appea r normal. The anterior communicating artery is patent. Posterior cerebral vasculature vertebral basil ar system appears normal. Other: Lung apices within the [id number] are normal. Degenerative changes are noted through the ce rvical spine IMPRESSION: 1. No suspicious stenosis carotid bifurcations. 2. Poorly visualized right A1 segment. Intracranial cerebral vasculature otherwise normal. 3. Examination is stable from comparison
[2018-08-27 18:08] VITALS: BMI 22.8
[2018-08-27] MEDS ORDERED: ACETAMINOPHEN TAB 500 MG TAB PO PRN (18:31)
[2018-08-27] MEDS ORDERED: TEMAZEPAM 15 MG CAP PO PRN (18:31)
[2018-08-27] MEDS ORDERED: LORazepam 2 MG/ML INJ IV PRN ×3 (19:28)
--- NOTE | 2018-08-27 20:46 | HP ---
HISTORY AND PHYSICAL CHIEF COMPLAINT: Diplopia and dizziness. HISTORY OF PRESENT ILLNESS: This 68-year-old gentleman with a past medical history of CVA, TIA, hypertension , history of chronic back pain, history of anxiety, history of nicotine dependence , not being followed by primary care physician in the outpatient setting, had a stroke in April. The patient was taking lisinopril and aspirin. Today the patient woke up and noted diplopia and disconjugate eyes. The patient also felt dizzy, had difficulty in walking. Patient had stumbling. He came to [facility] and was admitted for evaluation and treatment. CT of the brain was done in the ER which showed atrophy, periventricular white matter changes. CTA showed poorly visualized component, thought to be stable. There is no history of fever rigors. No history of headache, loss of consciousness, seizures. PAST MEDICAL HISTORY: History of CVA, TIA, history of hypertension, history of chronic back pain, history of skin cancer, history of anxiety. MEDICATIONS: 1. Zestril 20 mg daily. 2. Aspirin 81 mg daily. ALLERGIES: CIPRO, PENICILLIN. FAMILY HISTORY: History of myocardial infarction in the family. SOCIAL HISTORY: History of smoking. Occasional alcohol intake. REVIEW OF SYSTEM: Patient used to be a internet sales representative. REVIEW OF SYSTEMS: ENT: As mentioned earlier. CARDIOVASCULAR SYSTEM: No angina or palpitations. RESPIRATORY SYSTEM: No cough or hemoptysis. GI: As mentioned earlier. : No dysuria. NERVOUS SYSTEM: As mentioned. MUSCULOSKELETAL: As mentioned earlier. HEMATOLOGY/ONCOLOGY: None. ENDOCRINE: No history of diabetes or hypothyroidism. CONSTITUTIONAL: As mentioned earlier. PSYCHIATRY: As mentioned earlier. PHYSICAL EXAMINATION: Alert and oriented x3. Pulse 72, blood pressure 140/92, respirations 19, temperature 97.5, pulse ox 100 percent on room air. HEENT: Conjunctivae normal. Oral mucosa moist. NECK: No jugular venous distention. No lymph enlargement. CARDIOVASCULAR: S1 and S2 muffled. LUNGS: Breath sounds diminished at the bases. Few scattered rhonchi. ABDOMEN: Soft, nontender. EXTREMITIES: Legs no edema, no swelling. NERVOUS SYSTEM: Higher functions as mentioned earlier. Disconjugate eyes and with right absent with nystagmus on the left side indicative of right internuclear ophthalmoplegia. Otherwise, minimal facial deviation. Moves all 4 limbs. Mild diffuse weakness. Mild diffuse incoordination also present. SKIN: No rashes or ulcers. Dry skin present in joints. No active deformities. LYMPHATICS: No lymph nodes palpable in the neck, axillae or groin. LAB STUDIES: WBC 10.7 and glucose 118. CK MB 2.6. The EKG shows PACs. Chest x-ray shows no acute process. Other labs are noted. ASSESSMENT: 1. 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 2. Diplopia. 3. Gait dysfunction. 4. History of cerebrovascular accident and transient ischemic attack previously. 5. Hypertension. 6. Chronic back pain. 7. History of skin cancer. 8. History of anxiety. 9. Continued nicotine dependence. 10.History of EtOH. RECOMMENDATIONS AND DISCUSSION: In this 68-year-old gentleman who presented with multiple complex medical issues , we will monitor the patient closely. Continue the current management and symptomatic treatment. Continue with antiplatelet agents. Neurology evaluation. Neuro checks. I would also recommend MRI and MRA of the brain on an urgent basis. Otherwise complete neurovascular work up. Neuro checks. Prognosis guarded. Neurology will be consulted. See orders for details. Importance of compliance also stressed with the patient. Smoking cessation. Patient is also going to make some dietary changes according to him. PT/OT evaluation. Further recommendations to follow. MMODL / IJN: [id number] / MIRELA
[2018-08-27] MEDS: ATORVASTATIN 40 MG TAB PO SCH (22:12)
[2018-08-27] MEDS: NICOTINE 14MG/24HR PATCH TRANSDERM SCH (22:12)
[2018-08-27] MEDS: HEPARIN SODIUM,PORCINE 5,000 UNIT/ML 1 ML VIAL SQ SCH (22:13)
[2018-08-27 22:24] LABS: Appearance,Urine Clear (Clear); Bilirubin,Urine Negative (Negative); Blood,Urine Negative (Negative); Color,Urine Light Yellow; Glucose,Urine (UA) Negative (Negative); Ketones,Urine Negative (Negative); Leukocyte Esterase,Urine Negative (Negative); Nitrite,Urine Negative (Negative); Protein,Urine Negative (Negative); Specific Gravity,Urine 1.039 (1.001-1.035); Urobilinogen,Urine <2.0 mg/dL (<2.0)
[2018-08-27 22:36] LABS: Amphetamine Screen,Urine Not Detected (NotDetected); Barbiturate Screen,Urine Not Detected (NotDetected); Benzodiazepines Screen,Urine Detected (NotDetected); Cocaine Screen,Urine Not Detected (NotDetected); Methadone Screen, Urine Not Detected (NotDetected); Opiate Screen,Urine Not Detected (NotDetected); Oxycodone Screen, Urine Not Detected (NotDetected); Phencyclidine Screen,Urine Not Detected (NotDetected); Tricyclic Antidepressant,Urine Not Detected (NotDetected); Urn Cannabinoid Scrn Not Detected (NotDetected)
[2018-08-28] MEDS: SODIUM CHLORIDE 0.9% 1,000 ML IV SCH ×2 (02:39→20:16)
[2018-08-28] MEDS: HYDROcodone/APAP 5-325MG 1 EACH TAB PO PRN ×2 (03:21→16:59)
[2018-08-28 06:38] LABS: Basophils # (A) 0.1 k/uL (0-0.2); Basophils % (A) 1 %; Eosinophils # (A) 0.5 k/uL (0-0.7); Eosinophils % (A) 5 %; HCT 39.7 % (39.0-53.0); HGB 12.3 gm/dL (13.0-17.5); Lymphocytes # (A) 1.7 k/uL (1.0-4.8); Lymphocytes % (A) 18 %; MCH 30.5 pg (25.0-35.0); MCHC 30.9 g/dL (31.0-37.0); MCV 98.6 fL (80.0-100.0); Mean Platelet Volume 6.3; Monocytes # (A) 0.8 k/uL (0-1.0); Monocytes % (A) 8 %; Neutrophils # (A) 6.3 k/uL (1.3-7.7); Neutrophils % (A) 66 %; Platelet Count 325 k/uL (150-450); RBC 4.03 m/uL (4.30-5.90); WBC 9.6 k/uL (3.8-10.6)
[2018-08-28 06:43] LABS: Anion Gap 6 mmol/L; Blood Urea Nitrogen 10 mg/dL (9-20); Calcium 8.7 mg/dL (8.4-10.2); Carbon Dioxide 26 mmol/L (22-30); Chloride 104 mmol/L (98-107); Cholesterol 141 mg/dL (<200); Glucose 80 mg/dL (74-99); HDL Cholesterol 71 mg/dL (40-60); LDL Cholesterol,Calculated 62 mg/dL (0-99); Potassium 4.1 mmol/L (3.5-5.1); Sodium 136 mmol/L (137-145); Triglycerides 38 mg/dL (<150)
[2018-08-28] MEDS: PANTOPRAZOLE 40 MG TABLET PO SCH (06:45)
[2018-08-28] MEDS ORDERED: ASPIRIN 325 MG TAB PO SCH (09:00)
[2018-08-28] MEDS: NICOTINE 14MG/24HR PATCH TRANSDERM SCH (09:49)
[2018-08-28] MEDS: ALPRAZolam 0.25 MG TAB PO PRN ×2 (09:50→20:21)
[2018-08-28] MEDS: CLOPIDOGREL 75 MG TAB PO SCH (09:50)
[2018-08-28] MEDS: HEPARIN SODIUM,PORCINE 5,000 UNIT/ML 1 ML VIAL SQ SCH ×2 (09:50→20:21)
--- NOTE | 2018-08-28 09:56 | P.CNNES ---
History of Present Illness Consult date: 08/28/18 Requesting physician: Juni Velasquez Reason for Consult: Stroke Chief complaint: CVA History of Present Illness: Neurology's consultation a 68-year-old male who presented to the ED for dizziness and visual problems. Patient had double vision with left sided weakness Patient had difficulty focusing on objects, with an onset of approximately 8 AM 2 days ago. Patient had dizziness and then a fall. Patient then began experiencing headache. Patient did have similar symptoms in approximately April 2018 and was admitted to the hospital. At that time he was diagnosed with stroke. Patient symptoms at this admission are the same per patient. Patient has not adhered to his previous medication regimen post discharge. He has taken his 81 mg aspirin but did not take his Lipitor as prescribed at discharge. Patient has not had Lipitor greater than 2 months. Patient did not follow up with primary care physician as advised at discharge. Patient did not engage in diet modification, exercise or other recommendations. In total, patient has been relatively noncompliant with recommendations post discharge to decrease stroke risk. At contact, patient was alert and oriented 3, resting in bed in no acute distress. Review of Systems systems not noted in HPI are negative Past Medical History Past Medical History: Cancer, CVA/TIA, Hypertension Additional Past Medical History / Comment(s): chronic back issues, skin CA, "minor stroke" 05/23/2017 History of Any Multi-Drug Resistant Organisms: None Reported Additional Past Surgical History / Comment(s): skin ca left ear, right ear, bilat shoulder, and right FA Past Psychological History: Anxiety Smoking Status: Current every day smoker Past Alcohol Use History: Daily Additional Past Alcohol Use History / Comment(s): patient states he has 1-2 beers per day Past Drug Use History: None Reported - Past Family History Father Family Medical History: Myocardial Infarction ([place]) Mother Family Medical History: CVA/TIA Medications and Allergies Home Medications Medication Instructions Recorded Confirmed Type Aspirin 81 mg PO DAILY #30 chewable 05/26/18 08/27/18 Rx Lisinopril [Zestril] 20 mg PO DAILY #30 tab 07/18/18 08/27/18 Rx Allergies Allergy/AdvReac Type Severity Reaction Status Date / Time ciprofloxacin [From Cipro] Allergy Unknown Verified 08/27/18 15:06 Penicillins Allergy Unknown Verified 08/27/18 15:06 Physical Examination - Vital Signs Vital Signs: Vital Signs Temp Pulse Pulse Resp BP BP Pulse Ox 08/28/18 03:00 97.1 F L 74 18 140/85 98 08/27/18 23:40 97.1 F L 75 18 137/78 96 08/27/18 20:20 97.6 F 86 18 142/87 98 08/27/18 16:27 98 F 08/27/18 16:25 97.5 F L 72 19 146/92 100 08/27/18 16:20 75 16 181/94 98 08/27/18 15:50 97.8 F 79 18 184/92 97 08/27/18 14:43 98.5 F 85 16 151/81 97 Intake and Output 08/27/18 08/28/18 08/28/18 22:59 06:59 14:59 Output Total 900 Balance -900 Output: Urine 900 Other: Weight 68.039 kg 71 kg General appearance: Alert & oriented x3, no apparent distress. Head: Atraumatic, normocephalic, normal inspection Eyes: as noted below Ear, nose and throat: Normal exam, mucous membranes moist Neck: Normal inspection, absent tenderness, lymphadenopathy. Respiratory: No increased work of breathing Cardiovascular: Regular rate, rhythm GI/abdominal: No guarding Extremities: Full range of motion4 Neurological: right medial rectus muscle weakness will not track medially with right eye, slight left facial droop no lateralizing weakness no seizure activity noted on physical exam slight left pronator drift left upper and lower extremity = 3 out of 5 Right upper and lower extremity 4-5 Sensation: Intact and equal in all 4 extremities Psychological: Mood and Affect appropriate for setting Results - Laboratory Findings CBC and BMP: 08/28/18 05:32 08/28/18 05:32 Abnormal Lab Findings: Abnormal Labs 08/27/18 08/27/18 08/27/18 14:48 14:48 14:48 WBC 10.7 H RBC Hgb MCHC Sodium Creatinine 0.62 L Glucose 118 H CK-MB (CK-2) 2.6 H HDL Cholesterol Ur Specific [place] U Benzodiazepines Scrn 08/27/18 08/28/18 08/28/18 21:00 05:32 05:32 WBC RBC 4.03 L Hgb 12.3 L MCHC 30.9 L Sodium 136 L Creatinine 0.60 L Glucose CK-MB (CK-2) HDL Cholesterol 71 H Ur Specific [place] 1.039 H U Benzodiazepines Scrn Detected H Assessment and Plan (1) TIA (transient ischemic attack) Current Visit: Yes Status: Acute Code(s): G45.9 - TRANSIENT CEREBRAL ISCHEMIC ATTACK, UNSPECIFIED SNOMED Code(s): 308210696 (2) Transient brainstem ischemia Current Visit: No Status: Acute Code(s): G45.9 - TRANSIENT CEREBRAL ISCHEMIC ATTACK, UNSPECIFIED SNOMED Code(s): 021136218 (3) History of ischemic stroke without residual deficits Current Visit: Yes Status: Acute Code(s): Z86.73 - PRSNL HX OF TIA (TIA), AND CEREB INFRC W/O RESID DEFICITS SNOMED Code(s): 312619055826125 (4) Dysconjugate gaze Current Visit: No Status: Acute Code(s): H51.8 - OTHER SPECIFIED DISORDERS OF BINOCULAR MOVEMENT SNOMED Code(s): 069786312 (5) Vision changes Current Visit: Yes Status: Acute Code(s): H53.9 - UNSPECIFIED VISUAL DISTURBANCE SNOMED Code(s): 459487318 Plan: Patient reports that his vision changes and headache have resolved however his left facial droop appears to be slightly increased from his previous event in April 2018. After reviewing his notes from April 2018, it does appear that his medial rectus/disconjugate gaze has slightly increased. His CT of the brain noted no acute process, poorly visualized A1 segment, stable from previous comparison but given his increased physical exam findings lack of full resolution to this point, I do agree with the stat request for the MRA MRV as previously ordered by neon glass blower. I have also ordered an EEG, serum homocystine level, discontinued aspirin, continue Lipitor at existing dose and frequency and started Plavix 75 mg daily. Continue neurological checks as implemented. At the very least it does appear the patient has experienced a TIA. Further recommendations are forthcoming pending the results of imaging and testing as noted. Thank you for allowing us to assist in this patient's care. Neurology will continue to follow and provide updates as needed or warranted. I have discussed the plan of care with the physician prior to implementation and he agrees with the plan as implemented.
[2018-08-28] MEDS: FOLIC ACID 1 MG TAB PO SCH (11:55)
[2018-08-28] MEDS: MULTIVITAMINS, THERA 1 EACH TAB PO SCH (11:55)
[2018-08-28] MEDS: THIAMINE 100 MG TAB PO SCH (11:55)
--- NOTE | 2018-08-28 18:17 | PN ---
PROGRESS NOTE DATE OF SERVICE: 08/28/2018. INTERVAL HISTORY: This 68-year-old gentleman who was admitted with diplopia and dizziness has internuclear ophthalmoplegia indicating a right brainstem stroke. The patient being closely monitored. MRI has been scheduled at this time. No chest pain. No palpitations. No fever. PAST MEDICAL HISTORY: Reviewed. REVIEW OF SYSTEM: Cardiac: No angina. Respiratory: As mentioned earlier. GI no nausea or vomiting. no dysuria. Nervous System: As mentioned earlier. CURRENT MEDICATIONS: Reviewed and include: 1. Tylenol 500 mg q.h.s. 2. [place] 5 mg q.6h p.r.n. 3. Xanax 0.5 t.i.d. 4. Lipitor 40 mg q.h.s. 5. Plavix 75 mg. 6. Folic acid 1 mg. 7. Heparin subcu b.i.d. 8. Ativan p.r.n. 9. Multivitamins. 10.Habitrol 14 daily. 11.Restoril 15 mg. 12.Vitamin B1 100 mg p.o. daily. PHYSICAL EXAM: Patient is alert, oriented x3. Pulse 83, blood pressure 141/70, respiration 22, temperature normal, pulse ox 94% on room air. HEENT: Conjunctivae normal. Oral mucosa moist. Neck is no jugular venous distention. No carotid bruit. No lymph node enlargement. Cardiovascular system: S1, S2 muffled. Respirations: Breath sounds diminished in the bases. No rhonchi. No crackles. ABDOMEN: Soft, nontender. Legs are no edema. No swelling. CENTRAL NERVOUS SYSTEM: Higher functions as mentioned earlier. Cranial nerves medial conjugate gaze is deficient on the right side and nystagmus on the left eye with diplopia suggestive of right LUCERO, minimal facial deviation, minimal incoordination also present. Skin: No ulcer, rash or bleeding. LABS: WBC 9.2, hemoglobin 12.2, sodium 136. ASSESSMENT: 1. 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 2. Diplopia. 3. Gait dysfunction. 4. History of cerebrovascular accident, transient ischemic attack. 5. Hypertension. 6. History of chronic back pain. 7. History of skin cancer. 8. History of anxiety. 9. Continued nicotine dependence. 10.History of EtOH. RECOMMENDATIONS AND DISCUSSION: Recommend to continue current medications, management and symptomatic treatment. Otherwise, continue with antiplatelet agents. The patient is on Plavix at this time. Continue with Lipitor. Otherwise, continue the rest of medications. PT/OT evaluation. MRI scan. Follow closely with neurology. Prognosis guarded. The importance of compliance was also stressed with the patient. Patient understands and agrees. Further recommendations to follow. MMODL / IJN: [id number] / MTDD
[2018-08-28] MEDS: ATORVASTATIN 40 MG TAB PO SCH (20:21)
[2018-08-29] MEDS: PANTOPRAZOLE 40 MG TABLET PO SCH (06:22)
--- NOTE | 2018-08-29 06:37 | P.PN ---
Subjective Progress Note Date: 08/29/18 Principal diagnosis: TIA Neurology is following on a 68-year-old who presented to the ED for dizziness and visual problems. Patient had double vision with left-sided weakness. Patient had difficulty focusing on objects, with onset approximately now about 2 -4 days ago. Patient had dizziness and a fall. Patient and began expanse any headache. Patient did have similar symptoms approximately April 2018 and was admitted to the hospital. At that time he was diagnosed with stroke. Patient has symptoms at this admission that are same as his previous event. Patient has not adhered to his previous medication regimen post discharge. He has taken his 81 mg aspirin but did not take his Lipitor as prescribed at discharge previously. Patient has not had Lipitor and greater than 2 months. Patient did not follow up with primary care physician post discharge. Patient did not engage in diet modification, exercise or other recommendations. In total, patient has been relatively noncompliant with post discharge recommendations from previous stroke. Interval update 08/29/18: At contact today, patient states that his headache is no longer present, patient states that today he's having intermittent diplopia but no blurry vision in the diplopia may last seconds to minutes. His left-sided weakness is also transient but is not severe as in the past. He does have intermittent vertigo like symptoms which also a transient and last seconds to minutes as well and very with position and activity. Patient is still awaiting advanced imaging of the brain including MRI/MRA/MRV. Serum homocystine level has been taken. EEG is ordered. Patient is on Lipitor 40 mg by mouth daily at bedtime and Plavix 75 mg daily. Neuro checks are implemented as noted. Patient does still have conjugate gaze dysfunction as previously stated on earlier physical exam. Patient is still alert and oriented 3 and in no acute distress. Patient 's symptoms have not increased but symptoms that he initially presented with are still at the same level and are transient and fluctuating amongst several symptoms intermittently as noted. Objective - Vital Signs Vital signs: Vital Signs Temp 97.3 F L 08/28/18 20:00 Pulse 72 08/29/18 03:42 Resp 16 08/29/18 03:42 BP 163/90 08/29/18 03:42 Pulse Ox 95 08/29/18 03:42 Intake & Output 08/28/18 08/28/18 08/29/18 06:59 18:59 06:59 Output Total 900 Balance -900 Weight 71 kg 72 kg Output: Urine 900 Other: Voiding Method Toilet Urinal # Voids 1 - Exam Gen. appearance: Alert, in no apparent distress Head: Atraumatic normocephalic, normal inspection Eyes: As noted below and neurological testing Ear nose and throat: Normal exam, mucous membranes moist Neck: Normal inspection. Absent tenderness, lymphadenopathy Respiratory: No increased work of breathing. Cardiovascular: Regular rate, normal rhythm, normal heart sounds. Absent systolic murmur, diastolic murmur, rubs, gallops, clicks GIabdominal: Normal bowel sounds, non distended, no tenderness, no guarding, no rebound, no rigidity. Extremities: All range of motion, normal capillary refill, no tenderness, pedal edema, joint swelling, calf tenderness Neurological: Alert and oriented 3, no unilateral lateralizing weakness, no seizure activity noted on physical exam, pronator driftslight left and right medial rectus muscle weaknesswill not track medially with right eye, slight left facial droop. Left upper and lower extremity strength = 3 at a 5, right upper and lower extremity strength = 45 out of 5, sensation = intact and equal in all 4 extremities Psychological: Mood and affect appropriate setting - Labs CBC & Chem 7: 08/28/18 05:32 08/28/18 05:32 Labs: Abnormal Lab Results - Last 24 Hours (Table) 08/28/18 08/28/18 Range/Units 05:32 05:32 RBC 4.03 L (4.30-5.90) m/uL Hgb 12.3 L (13.0-17.5) gm/dL MCHC 30.9 L (31.0-37.0) g/dL Sodium 136 L (137-145) mmol/L Creatinine 0.60 L (0.66-1.25) mg/dL HDL Cholesterol 71 H (40-60) mg/dL Assessment and Plan (1) TIA (transient ischemic attack) Current Visit: Yes Status: Acute Code(s): G45.9 - TRANSIENT CEREBRAL ISCHEMIC ATTACK, UNSPECIFIED SNOMED Code(s): 192157646 (2) Transient brainstem ischemia Current Visit: No Status: Acute Code(s): G45.9 - TRANSIENT CEREBRAL ISCHEMIC ATTACK, UNSPECIFIED SNOMED Code(s): 795734169 (3) History of ischemic stroke without residual deficits Current Visit: Yes Status: Acute Code(s): Z86.73 - PRSNL HX OF TIA (TIA), AND CEREB INFRC W/O RESID DEFICITS SNOMED Code(s): 202988217015758 (4) Dysconjugate gaze Current Visit: No Status: Acute Code(s): H51.8 - OTHER SPECIFIED DISORDERS OF BINOCULAR MOVEMENT SNOMED Code(s): 627297917 (5) Vision changes Current Visit: Yes Status: Acute Code(s): H53.9 - UNSPECIFIED VISUAL DISTURBANCE SNOMED Code(s): 572151003 Plan: Patient reports that his vision changes have returned and headache has resolved however his left facial droop appears unchanged a over day. After reviewing his notes from April 2018, it does appear that his medial rectus/disconjugate gaze has slightly increased. His CT of the brain noted no acute process, poorly visualized A1 segment, stable from previous comparison but given his increased physical exam findings lack of full resolution to this point, I do agree with the stat request for the MRA MRV as previously ordered by senior software development engineer. I have also ordered an EEG, serum homocystine level, discontinued aspirin, continue Lipitor at 40 mg by mouth daily at bedtime and Plavix 75 mg daily. Continue neurological checks as implemented. At the very least it does appear the patient has experienced a TIA. Further recommendations are forthcoming pending the results of imaging and testing as noted. Thank you for allowing us to assist in this patient's care. Neurology will continue to follow and provide updates as needed or warranted. I have discussed the plan of care with the physician prior to implementation and he agrees with the plan as implemented.
[2018-08-29] MEDS: HEPARIN SODIUM,PORCINE 5,000 UNIT/ML 1 ML VIAL SQ SCH ×2 (08:47→19:49)
[2018-08-29] MEDS: CLOPIDOGREL 75 MG TAB PO SCH (08:47)
[2018-08-29] MEDS: NICOTINE 14MG/24HR PATCH TRANSDERM SCH (08:47)
[2018-08-29] MEDS: HYDROcodone/APAP 5-325MG 1 EACH TAB PO PRN ×2 (08:58→16:27)
--- NOTE | 2018-08-29 09:00 | MR ---
EXAMINATION TYPE: MR MRA/MRV head wo con DATE OF EXAM: 08/29/2018 COMPARISON: None HISTORY: dizziness, vision disturbance, lt cheek numbness TECHNIQUE: Time of flight images focusing on the [place] were performed without contrast.. 2-D and 3-D postprocessing imaging is performed. Study is then repeated with concentration on the peyman ous system with 2-D and 3-D postprocessing performed. Images were obtained on 3.0 Ligia magnet. FINDINGS: [place]: The left internal carotid artery bifurcates normally into A1 and M1 segments. The a nterior communicating artery is patent. A2 segments are normal. The right knee 1 segment is absent. T he right middle cerebral artery branches are normal. Vertebral basilar system appears normal. Flotation Tender ior cerebral vasculature is unremarkable. Posterior communicating arteries are absent. MRV: Imaging is performed in the venous phase. Sagittal sinus and straight sinus are patent. Remainin g Donny is normal. The right sigmoid sinus is dominant. Venous flow appears symmetrical otherwise. IMPRESSION: 1. 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 [place] appears within shawn l limits. 2. MRV of the brain is within normal limits.
[2018-08-29 09:16] LABS: Basophils # (A) 0.1 k/uL (0-0.2); Basophils % (A) 1 %; Eosinophils # (A) 0.4 k/uL (0-0.7); Eosinophils % (A) 5 %; HCT 39.6 % (39.0-53.0); HGB 12.7 gm/dL (13.0-17.5); Lymphocytes # (A) 1.4 k/uL (1.0-4.8); Lymphocytes % (A) 17 %; MCH 31.4 pg (25.0-35.0); MCV 98.1 fL (80.0-100.0); Mean Platelet Volume 6.4; Monocytes # (A) 0.7 k/uL (0-1.0); Monocytes % (A) 8 %; Neutrophils # (A) 5.7 k/uL (1.3-7.7); Neutrophils % (A) 67 %; Platelet Count 315 k/uL (150-450); RBC 4.04 m/uL (4.30-5.90); RDW 13.8 % (11.5-15.5); WBC 8.4 k/uL (3.8-10.6)
[2018-08-29 09:33] LABS: Sodium 141 mmol/L (137-145)
[2018-08-29 09:34] LABS: Anion Gap 6 mmol/L; Blood Urea Nitrogen 9 mg/dL (9-20); Calcium 9.1 mg/dL (8.4-10.2); Carbon Dioxide 27 mmol/L (22-30); Chloride 108 mmol/L (98-107); Glucose 97 mg/dL (74-99); Potassium 4.4 mmol/L (3.5-5.1)
[2018-08-29] MEDS: MULTIVITAMINS, THERA 1 EACH TAB PO SCH (12:42)
[2018-08-29] MEDS: SODIUM CHLORIDE 0.9% 1,000 ML IV SCH (12:42)
[2018-08-29] MEDS: FOLIC ACID 1 MG TAB PO SCH (12:42)
[2018-08-29] MEDS: THIAMINE 100 MG TAB PO SCH (12:42)
--- NOTE | 2018-08-29 12:42 | ECHOF ---
Referral Reason:Stroke MEASUREMENTS -------- HEIGHT: 172.7 cm WEIGHT: 71.7 kg BP: RVIDd: 2.4 cm (< 3.3) IVSd: 1.5 cm (0.6 - 1.1) LVIDd: 4.0 cm (3.9 - 5.3) LVPWd: 1.4 cm (0.6 - 1.1) IVSs: 2.0 cm LVIDs: 2.4 cm LVPWs: 2.0 cm LAESV Index (A-L): 30.47 ml/m Ao Diam: 2.7 cm (2.0 - 3.7) AV Cusp: 1.1 cm (1.5 - 2.6) LA Diam: 3.7 cm (2.7 - 3.8) MV EXCURSION: 15.965 mm (> 18.000) MV EF SLOPE: 117 mm/s (70 - 150) EPSS: 0.7 cm MV E Tito: 0.86 m/s MV DecT: 208 ms MV A Tito: 1.04 m/s MV E/A Ratio: 0.83 AV maxP.49 mmHg AV meanP.37 mmHg AR PHT: 314 ms RAP: 5.00 mmHg RVSP: 33.18 mmHg FINDINGS -------- Sinus rhythm. This was a technically good study. The left ventricular size is normal. There is moderate concentric left ventricular hypertrophy. O verall left ventricular systolic function is normal with, an EF between 55 - 60 %. The right ventricle is normal in size and function. LA is midly dilated 29-33ml/m2. The right atrium is normal in size. Aortic valve is trileaflet and is severely thickened. There is mild aortic regurgitation. There i s moderate aortic stenosis present. Peak/mean gradient across the Aortic Valve is 36.49mmHg / 21.37 mmHg. The peak gradient may have under estimate theseverity of . The mitral valve leaflets are mildly thickened. Mild mitral regurgitation is present. Mild tricuspid regurgitation present. The right ventricular systolic pressure, as measured by Doppl er, is 33.18mmHg. There is no pulmonic regurgitation present. The aortic root size is normal. Normal inferior vena cava with normal inspiratory collapse consistent with estimated right atrial pre ssure of 5 mmHg. There is no pericardial effusion. CONCLUSIONS -------- 1. Sinus rhythm. 2. This was a technically good study. 3. The left ventricular size is normal. 4. There is moderate concentric left ventricular hypertrophy. 5. Overall left ventricular systolic function is normal with, an EF between 55 - 60 %. 6. LA is midly dilated 29-33ml/m2. 7. Aortic valve is trileaflet and is severely thickened. 8. There is mild aortic regurgitation. 9. There is moderate aortic stenosis present. 10. Peak/mean gradient across the Aortic Valve is 36.49mmHg / 21.37mmHg. 11. The peak gradient may have under estimate theseverity of . 12. The mitral valve leaflets are mildly thickened. 13. Mild mitral regurgitation is present. 14. Mild tricuspid regurgitation present. 15. The right ventricular systolic pressure, as measured by Doppler, is 33.18mmHg. 16. There is no pulmonic regurgitation present. 17. The aortic root size is normal. 18. Normal inferior vena cava with normal inspiratory collapse consistent with estimated right atrial pressure of 5 mmHg. 19. There is no pericardial effusion. INFORMATION DELIVERY ANALYST: Ness Rojo RDCS
--- NOTE | 2018-08-29 16:58 | PN ---
PROGRESS NOTE DATE OF SERVICE: 08/29/2018. INTERVAL HISTORY: This 68-year-old gentleman admitted with internuclear ophthalmoplegia on the right side with brainstem stroke is being closely monitored. 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 MRI is pending at this time. No chest pain. No palpitations. No fever. PHYSICAL EXAM: Alert and oriented x3. Pulse 75, blood pressure 176/93, respirations 16, temperature 98.9, pulse ox 98% on room air. Oral mucosa moist. NECK: No JVD. No lymph node enlargement. CARDIOVASCULAR: S1 and S2 muffled. LUNGS: Breath sounds diminished in the bases. No rhonchi, no crackles. ABDOMEN: Soft, nontender. No mass palpable. EXTREMITIES: Legs no edema. NERVOUS SYSTEMS: Right internuclear ophthalmoplegia present. LABS: WBC 8.2, hemoglobin is 12.7, sodium 141, potassium 4.4. ASSESSMENT: 1. 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 2. Diplopia. 3. Gait dysfunction. 4. History of cerebrovascular accident and transient ischemic attack. 5. History of hypertension. 6. History of chronic back pain. 7. History of skin cancer. 8. History of anxiety. 9. Continued ongoing nicotine dependence. 10.History EtOH. RECOMMENDATIONS: Continue current management and symptomatic treatment. Continue with antiplatelet agents. Await MRI. Continue the rest of the medications. Closely follow with Neurology. DVT prophylaxis. Prognosis guarded because of multiple complex medical issues. Further recommendations to follow. MMODL / IJN: [id number] / MTDD
[2018-08-29] MEDS: ATORVASTATIN 40 MG TAB PO SCH (19:49)
[2018-08-29] MEDS: ALPRAZolam 0.25 MG TAB PO PRN (22:13)
[2018-08-30] MEDS: SODIUM CHLORIDE 0.9% 1,000 ML IV SCH (05:44)
[2018-08-30 06:31] LABS: Basophils # (A) 0.1 k/uL (0-0.2); Basophils % (A) 1 %; Eosinophils # (A) 0.6 k/uL (0-0.7); Eosinophils % (A) 7 %; HCT 40.2 % (39.0-53.0); Lymphocytes # (A) 1.7 k/uL (1.0-4.8); Lymphocytes % (A) 22 %; MCH 31.6 pg (25.0-35.0); MCHC 32.3 g/dL (31.0-37.0); MCV 97.9 fL (80.0-100.0); Mean Platelet Volume 6.4; Monocytes # (A) 0.7 k/uL (0-1.0); Monocytes % (A) 9 %; Neutrophils # (A) 4.6 k/uL (1.3-7.7); Neutrophils % (A) 58 %; Platelet Count 327 k/uL (150-450); RBC 4.11 m/uL (4.30-5.90); RDW 13.9 % (11.5-15.5); WBC 7.9 k/uL (3.8-10.6)
[2018-08-30] MEDS: PANTOPRAZOLE 40 MG TABLET PO SCH (06:39)
[2018-08-30 06:40] LABS: Anion Gap 5 mmol/L; Blood Urea Nitrogen 11 mg/dL (9-20); Calcium 9.2 mg/dL (8.4-10.2); Carbon Dioxide 29 mmol/L (22-30); Chloride 107 mmol/L (98-107); Glucose 86 mg/dL (74-99); Potassium 4.6 mmol/L (3.5-5.1); Sodium 141 mmol/L (137-145)
[2018-08-30] MEDS: NICOTINE 14MG/24HR PATCH TRANSDERM SCH (08:17)
[2018-08-30] MEDS: CLOPIDOGREL 75 MG TAB PO SCH (08:17)
[2018-08-30] MEDS: HEPARIN SODIUM,PORCINE 5,000 UNIT/ML 1 ML VIAL SQ SCH (08:18)
[2018-08-30] MEDS ORDERED: ASPIRIN 81 MG PO SCH (09:00)
[2018-08-30] MEDS ORDERED: LISINOPRIL 20 MG TAB PO SCH (09:00)
[2018-08-30] MEDS: HYDROcodone/APAP 5-325MG 1 EACH TAB PO PRN ×2 (09:10→18:04)
[2018-08-30] MEDS: MULTIVITAMINS, THERA 1 EACH TAB PO SCH (11:52)
[2018-08-30] MEDS: FOLIC ACID 1 MG TAB PO SCH (11:52)
[2018-08-30] MEDS: THIAMINE 100 MG TAB PO SCH (11:52)
[2018-08-30] MEDS: ALPRAZolam 0.25 MG TAB PO PRN (13:33)
--- NOTE | 2018-08-30 15:19 | P.DS ---
Providers Date of admission: 08/27/18 16:02 Attending physician: Shanti Bruner Consults: 08/27/18 16:02 Consult Physician Urgent Consulting Provider: Allison Fox Consult Reason/Comments: cva Do you want consulting provider notified?: Yes Primary care physician: Stated None Hospital Course: 68-year-old male came in with the dizziness and visual it problems including double vision. Patient does have some weakness in the right lateral rectus with the slow movement of his right eyeball actually. Although it's not completely paralyzed. Neurology evaluated the patient all the workup is negative the believe patient may have a small brainstem stroke. Neurology is recommending outpatient follow-up further workup as an outpatient follow-up with ophthalmology. Patient will be discharged on Plavix and a statin. Patient was evaluated by physical therapy and occupational therapy they're not recommending any subacute rehabilitation at this time. PHYSICAL EXAMINATION: GENERAL: The patient is alert and oriented x3, not in any acute distress. Well developed, well nourished. HEENT: Pupils are round and equally reacting to light. EOMI. No scleral icterus. No conjunctival pallor. Normocephalic, atraumatic. No pharyngeal erythema. No thyromegaly. CARDIOVASCULAR: S1 and S2 present. No murmurs, rubs, or gallops. PULMONARY: Chest is clear to auscultation, no wheezing or crackles. ABDOMEN: Soft, nontender, nondistended, normoactive bowel sounds. No palpable organomegaly. MUSCULOSKELETAL: No joint swelling or deformity. EXTREMITIES: No cyanosis, clubbing, or pedal edema. NEUROLOGICAL: Gross neurological examination did not reveal any focal deficits. Lateral rectus peresis as mentioned above SKIN: No rashes. -Possible brainstem TIA, ischemic in nature -Hyperlipidemia -Hypertension - Patient Condition at Discharge: Serious Plan - Discharge Summary Discharge Rx Participant: Yes New Discharge Prescriptions: New Atorvastatin [Lipitor] 40 mg PO HS #30 tab Clopidogrel [Plavix] 75 mg PO DAILY #30 tab Nicotine 14Mg/24Hr Patch [Habitrol] 1 patch TRANSDERM DAILY #7 patch Continue Lisinopril [Zestril] 20 mg PO DAILY #30 tab Discontinued Aspirin 81 mg PO DAILY #30 chewable Discharge Medication List Lisinopril [Zestril] 20 mg PO DAILY #30 tab 07/18/18 [Rx] Atorvastatin [Lipitor] 40 mg PO HS #30 tab 08/30/18 [Rx] Clopidogrel [Plavix] 75 mg PO DAILY #30 tab 08/30/18 [Rx] Nicotine 14Mg/24Hr Patch [Habitrol] 1 patch TRANSDERM DAILY #7 patch 08/30/18 [ Rx] Follow up Appointment(s)/Referral(s): Nitin Caro, [NON-STAFF] - As Needed None,Stated [Primary Care Provider] - 1-2 days Activity/Diet/Wound Care/Special Instructions: Pt doesn't have a PCP
[2018-08-30 15:39] VITALS: BP 150/76; TEMP 97
[2018-08-30 15:57] VITALS: RESP 18
--- NOTE | 2018-08-30 17:26 | EEG ---
ELECTROENCEPHALOGRAM REPORT DATE OF SERVICE: 08/29/2018 REASON FOR TESTING: Stroke. DESCRIPTION OF THE PROCEDURE: This EEG was performed using a 21-channel digital electroencephalograph, following international 10-20 system. DESCRIPTION OF THE RECORDING: From the beginning of the tracing, and with the patient's eyes closed, the background rhythm was mostly consisting of 8-9 Hz alpha frequency in the posterior occipital leads. No obvious asymmetry is seen. Photic stimulation was performed with a minimal driving response seen. No pathological waves were elicited. Hyperventilation was not performed. Occasional movement and lead artifacts are seen. The patient remains awake throughout the tracing. No epileptiform discharges were seen. His EKG lead showed a regular rate and rhythm. INTERPRETATION: This awake EEG can be considered within normal limits. There was no asymmetry seen. No epileptiform discharges were noticed. The absence of epileptiform discharges does not rule out the diagnosis of epilepsy; therefore clinical correlation is recommended. MADDI / SYLVESTER: [id number] /
[2018-08-30 19:15] VITALS: PULSE 60
== END 2018-08-30 18:13 | disposition home or self-care (01) | DRG 69 ==
LOC: EC 14:40 → 6SEL 16:02
PROVIDERS: ADMIT Internal Medicine; ATTEND Internal Medicine
DX: G45.9 Transient cerebral ischemic attack, unspecified (principal); R29.701 NIHSS score 1; F17.200 Nicotine dependence, unspecified, uncomplicated; F41.9 Anxiety disorder, unspecified; G89.29 Other chronic pain; H51.21 Internuclear ophthalmoplegia, right eye; I10 Essential (primary) hypertension; M54.9 Dorsalgia, unspecified; R26.2 Difficulty in walking, not elsewhere classified; R51 Headache; Z79.82 Long term (current) use of aspirin; Z79.899 Other long term (current) drug therapy; Z88.1 Allergy status to other antibiotic agents; Z88.0 Allergy status to penicillin; Z91.19 Patient's noncompliance with other medical treatment and regimen; Z86.73 Personal history of transient ischemic attack (TIA), and cerebral infarction without residual deficits; Z85.828 Personal history of other malignant neoplasm of skin; Z91.81 History of falling; Z82.49 Family history of ischemic heart disease and other diseases of the circulatory system
CPT/HCPCS: 36415; 70450; 70496; 70498; 70544; 71046; 80048; 80053; 80061; 80306; 81003; 82550; 82553; 83090; 84484; 85025; 85610; 85730; 93005; 93306; 95816; 96361; 96374; 99285

== ENCOUNTER 2018-12-13 18:26 | Emergency (ER) | payer MEDICARE, OTHER ==
[2018-12-13 18:39] VITALS: TEMP 98.1
[2018-12-13] MEDS ORDERED: IPRATROPIUM 0.5 MG/2.5 ML NEBU INHALATION STA (18:53)
[2018-12-13] MEDS ORDERED: SODIUM CHLORIDE 0.9% 500 ML 500 ML IV STA (18:53)
[2018-12-13] MEDS ORDERED: ALBUTEROL NEBULIZED 2.5 MG/3 ML INHALATION STA (18:53)
--- NOTE | 2018-12-13 18:56 | ED ---
General Adult HPI - General Chief complaint: Shortness of Breath Stated complaint: High BP Time Seen by Provider: 12/13/18 18:35 Source: patient, EMS, RN notes reviewed Mode of arrival: EMS Limitations: physical limitation - History of Present Illness Initial comments: This is a 68-year-old male who presents emergency Department with a past medical history significant for hypertension and smoking. Patient comes in today because he felt lightheaded and he's been having difficulty breathing for the last 2 weeks and he states he has been having an increased cough over that period of time increased sputum production. Patient was worried he might have pneumonia. Patient also noted his blood pressure be high so he decided come to the emergency department. Patient denies any blurred vision. Patient denies any headache patient denies numbness weakness. Patient denies any near syncopal episode. Patient denies any chest pain or palpitations per patient denies abdominal pain patient denies any recent fever or chills. Patient denies abdominal pain patient denies nausea vomiting or diarrhea. Patient denies any swelling to the legs or calf tenderness - Related Data Previous Rx's Medication Instructions Recorded Lisinopril [Zestril] 20 mg PO DAILY #30 tab 07/18/18 Atorvastatin [Lipitor] 40 mg PO HS #30 tab 08/30/18 Clopidogrel [Plavix] 75 mg PO DAILY #30 tab 08/30/18 Azithromycin [Zithromax Tri-Tesfaye] 500 mg PO DAILY #3 tab 12/13/18 Lisinopril [Zestril] 20 mg PO DAILY #10 tab 12/13/18 Allergies Allergy/AdvReac Type Severity Reaction Status Date / Time Penicillins Allergy Rash/Hives Verified 12/13/18 19:10 ciprofloxacin [From Cipro] AdvReac Nausea & Verified 12/13/18 19:10 Vomiting Review of Systems ROS Statement: Those systems with pertinent positive or pertinent negative responses have been documented in the HPI. ROS Other: All systems not noted in ROS Statement are negative. Past Medical History Past Medical History: Cancer, CVA/TIA, Hypertension Additional Past Medical History / Comment(s): chronic back issues, skin CA, "minor stroke" 05/23/2017 History of Any Multi-Drug Resistant Organisms: None Reported Additional Past Surgical History / Comment(s): skin ca left ear, right ear, bilat shoulder, and right FA Past Psychological History: Anxiety Smoking Status: Current every day smoker Past Alcohol Use History: Occasional Past Drug Use History: None Reported - Past Family History Father Family Medical History: Myocardial Infarction ([place]) Mother Family Medical History: CVA/TIA General Exam - General Exam Comments Initial Comments: GENERAL: Patient is well-developed and well-nourished. Patient is nontoxic and well- hydrated and is in mild distress. ENT: Neck is soft and supple. No significant lymphadenopathy is noted. Oropharynx is clear. Moist mucous membranes. Neck has full range of motion without eliciting any pain. EYES: The sclera were anicteric and conjunctiva were pink and moist. Extraocular movements were intact and pupils were equal round and reactive to light. Eyelids were unremarkable. PULMONARY: She has some crackles in the right base and decreased airflow. CARDIOVASCULAR: There is a regular rate and rhythm without any murmurs gallops or rubs. ABDOMEN: Soft and nontender with normal bowel sounds. No palpable organomegaly was noted. There is no palpable pulsatile mass. SKIN: Skin is clear with no lesions or rashes and otherwise unremarkable. NEUROLOGIC: Patient is alert and oriented x3. Cranial nerves II through XII are grossly intact. Motor and sensory are also intact. Normal speech, volume and content. Symmetrical smile. MUSCULOSKELETAL: Normal extremities with adequate strength and full range of motion. No lower extremity swelling or edema. No calf tenderness. LYMPHATICS: No significant lymphadenopathy is noted PSYCHIATRIC: Normal psychiatric evaluation. Limitations: physical limitation Course Vital Signs 12/13/18 12/13/18 12/13/18 18:33 18:36 19:09 Temperature 98.1 F Pulse Rate 90 77 Respiratory 18 14 Rate Blood Pressure 208/108 O2 Sat by Pulse 97 96 Oximetry 12/13/18 12/13/18 12/13/18 19:10 19:24 19:40 Temperature Pulse Rate 81 Respiratory 15 12 Rate Blood Pressure 178/126 171/92 O2 Sat by Pulse 99 96 Oximetry 12/13/18 20:10 Temperature Pulse Rate 81 Respiratory 16 Rate Blood Pressure 165/93 O2 Sat by Pulse 98 Oximetry Medical Decision Making - Medical Decision Making EKG shows normal sinus rhythm at 82 bpm CA interval is 124 QRS is 86 Q-T intervals 388 QTC is 453 per patient's EKG shows no ST segment elevation or depression or T wave abnormalities are noted. Chest x-ray shows no acute normalities. After all the labs were back I spoke with the patient and told him that we'll be placing him on an antibiotic for the bronchitis and he will need to follow- up with his primary for his high blood pressure. Patient states been out of his high blood pressure medicine for quite a while. - Lab Data Result diagrams: 12/13/18 19:03 12/13/18 19:03 Lab Results 12/13/18 12/13/18 12/13/18 Range/Units 19:03 19:03 19:03 WBC 12.6 H (3.8-10.6) k/uL RBC 4.76 (4.30-5.90) m/uL Hgb 14.6 (13.0-17.5) gm/dL Hct 45.0 (39.0-53.0) % MCV 94.4 (80.0-100.0) fL MCH 30.6 (25.0-35.0) pg MCHC 32.4 (31.0-37.0) g/dL RDW 13.6 (11.5-15.5) % Plt Count 353 (150-450) k/uL Neutrophils % 66 % Lymphocytes % 18 % Monocytes % 7 % Eosinophils % 5 % Basophils % 1 % Neutrophils # 8.4 H (1.3-7.7) k/uL Lymphocytes # 2.3 (1.0-4.8) k/uL Monocytes # 0.9 (0-1.0) k/uL Eosinophils # 0.7 (0-0.7) k/uL Basophils # 0.1 (0-0.2) k/uL PT (9.0-12.0) sec INR (<1.2) APTT (22.0-30.0) sec Sodium 137 (137-145) mmol/L Potassium 4.6 (3.5-5.1) mmol/L Chloride 103 (98-107) mmol/L Carbon Dioxide 24 (22-30) mmol/L Anion Gap 10 mmol/L BUN 16 (9-20) mg/dL Creatinine 0.69 (0.66-1.25) mg/dL Est GFR (CKD-EPI)AfAm >90 (>60 ml/min/1.73 sqM) Est GFR (CKD-EPI)NonAf >90 (>60 ml/min/1.73 sqM) Glucose 89 (74-99) mg/dL Calcium 9.6 (8.4-10.2) mg/dL Magnesium 2.1 (1.6-2.3) mg/dL Total Bilirubin 0.9 (0.2-1.3) mg/dL AST 27 (17-59) U/L ALT 32 (21-72) U/L Alkaline Phosphatase 78 (38-126) U/L Total Creatine Kinase 117 (55-170) U/L CK-MB (CK-2) 2.0 (0.0-2.4) ng/mL CK-MB (CK-2) Rel Index 1.7 Troponin I 0.018 (0.000-0.034) ng/mL NT-Pro-B Natriuret Pep pg/mL Total Protein 7.6 (6.3-8.2) g/dL Albumin 4.4 (3.5-5.0) g/dL 12/13/18 12/13/18 Range/Units 19:03 19:03 WBC (3.8-10.6) k/uL RBC (4.30-5.90) m/uL Hgb (13.0-17.5) gm/dL Hct (39.0-53.0) % MCV (80.0-100.0) fL MCH (25.0-35.0) pg MCHC (31.0-37.0) g/dL RDW (11.5-15.5) % Plt Count (150-450) k/uL Neutrophils % % Lymphocytes % % Monocytes % % Eosinophils % % Basophils % % Neutrophils # (1.3-7.7) k/uL Lymphocytes # (1.0-4.8) k/uL Monocytes # (0-1.0) k/uL Eosinophils # (0-0.7) k/uL Basophils # (0-0.2) k/uL PT 9.5 (9.0-12.0) sec INR 0.9 (<1.2) APTT 23.6 (22.0-30.0) sec Sodium (137-145) mmol/L Potassium (3.5-5.1) mmol/L Chloride (98-107) mmol/L Carbon Dioxide (22-30) mmol/L Anion Gap mmol/L BUN (9-20) mg/dL Creatinine (0.66-1.25) mg/dL Est GFR (CKD-EPI)AfAm (>60 ml/min/1.73 sqM) Est GFR (CKD-EPI)NonAf (>60 ml/min/1.73 sqM) Glucose (74-99) mg/dL Calcium (8.4-10.2) mg/dL Magnesium (1.6-2.3) mg/dL Total Bilirubin (0.2-1.3) mg/dL AST (17-59) U/L ALT (21-72) U/L Alkaline Phosphatase (38-126) U/L Total Creatine Kinase (55-170) U/L CK-MB (CK-2) (0.0-2.4) ng/mL CK-MB (CK-2) Rel Index Troponin I (0.000-0.034) ng/mL NT-Pro-B Natriuret Pep 400 pg/mL Total Protein (6.3-8.2) g/dL Albumin (3.5-5.0) g/dL Disposition Clinical Impression: Acute bronchitis, Hypertension Disposition: HOME SELF-CARE Condition: Good Instructions: Acute Bronchitis (ED), Hypertension (ED) Prescriptions: Azithromycin [Zithromax Tri-Tesfaye] 500 mg PO DAILY #3 tab Lisinopril [Zestril] 20 mg PO DAILY #10 tab Is patient prescribed a controlled substance at d/c from ED?: No Referrals: None,Stated [Primary Care Provider] - 1-2 days Time of Disposition: 20:53
[2018-12-13 19:29] LABS: Basophils # (A) 0.1 k/uL (0-0.2); Basophils % (A) 1 %; Eosinophils # (A) 0.7 k/uL (0-0.7); Eosinophils % (A) 5 %; HGB 14.6 gm/dL (13.0-17.5); Lymphocytes # (A) 2.3 k/uL (1.0-4.8); Lymphocytes % (A) 18 %; MCH 30.6 pg (25.0-35.0); MCHC 32.4 g/dL (31.0-37.0); MCV 94.4 fL (80.0-100.0); Monocytes # (A) 0.9 k/uL (0-1.0); Monocytes % (A) 7 %; Neutrophils # (A) 8.4 k/uL (1.3-7.7); Neutrophils % (A) 66 %; Platelet Count 353 k/uL (150-450); RBC 4.76 m/uL (4.30-5.90); RDW 13.6 % (11.5-15.5); WBC 12.6 k/uL (3.8-10.6)
[2018-12-13 19:34] LABS: ALT 32 U/L (21-72); AST 27 U/L (17-59); Albumin 4.4 g/dL (3.5-5.0); Alkaline Phosphatase 78 U/L (38-126); Anion Gap 10 mmol/L; Blood Urea Nitrogen 16 mg/dL (9-20); Calcium 9.6 mg/dL (8.4-10.2); Carbon Dioxide 24 mmol/L (22-30); Chloride 103 mmol/L (98-107); Glucose 89 mg/dL (74-99); Magnesium 2.1 mg/dL (1.6-2.3); Potassium 4.6 mmol/L (3.5-5.1); Sodium 137 mmol/L (137-145); Total Bilirubin 0.9 mg/dL (0.2-1.3); Total Protein 7.6 g/dL (6.3-8.2)
[2018-12-13 19:36] LABS: INR 0.9 (<1.2); Partial Thromboplastin Time 23.6 sec (22.0-30.0); Prothrombin Time 9.5 sec (9.0-12.0)
[2018-12-13 19:44] LABS: Troponin I 0.018 ng/mL (0.000-0.034)
--- NOTE | 2018-12-13 19:59 | XR ---
EXAMINATION: XR chest 2V DATE AND TIME: 12/13/2018 7:52 PM CLINICAL INDICATION: PHH; difficulty breathing TECHNIQUE: Departmental protocol COMPARISON: 08/27/2018 FINDINGS: The lungs appear clear. The pleural spaces are negative. The cardiac silhouette is not enlarged. The remainder of the mediastinal silhouette is unremarkable. The skeletal structures and soft tissues are negative for acute findings. IMPRESSION: NO DEFINITE ACUTE PROCESS.
[2018-12-13 20:14] VITALS: RESP 16
[2018-12-13] MEDS ORDERED: hydrALAZINE HCL 20 MG/ML 1 ML VIAL IVP STA (20:20)
[2018-12-13] MEDS ORDERED: LORazepam 2 MG/ML INJ IV STA (20:24)
[2018-12-13 20:54] VITALS: BP 142/81; PULSE 87
== END 2018-12-13 21:00 | disposition home or self-care (01) ==
LOC: EC 18:26
DX: J20.9 Acute bronchitis, unspecified (principal); I10 Essential (primary) hypertension; F17.200 Nicotine dependence, unspecified, uncomplicated; Z86.73 Personal history of transient ischemic attack (TIA), and cerebral infarction without residual deficits; Z85.828 Personal history of other malignant neoplasm of skin; Z88.0 Allergy status to penicillin; Z88.1 Allergy status to other antibiotic agents
CPT/HCPCS: 36415; 93005; 83880; 80053; 82550; 82553; 83735; 84484; 85025; 85610; 85730; 87040; 71046; 99285; 96365; 96375 ×2; 96361; J2060; J0360; J0696

== ENCOUNTER 2019-06-19 08:19 | Emergency (ER) | payer MEDICARE, OTHER ==
[2019-06-19 08:38] VITALS: RESP 18
[2019-06-19] MEDS ORDERED: GLUCAGON 1 MG/ML VIAL IM STA (09:01)
--- NOTE | 2019-06-19 09:04 | ED ---
General Adult HPI - General Chief complaint: ENT Stated complaint: poss food in esophagus Time Seen by Provider: 06/19/19 08:23 Source: patient Mode of arrival: ambulatory Limitations: no limitations - History of Present Illness Initial comments: Dictation was produced using [employer] dictation software. please excuse any grammatical, word or spelling errors. Chief Complaint: 69-year-old male presents with foreign body sensation in the throat. History of Present Illness: 69-year-old male he was eating dinner yesterday at approximately 3:30 PM. He was eating chicken. He states that he swallowed a large piece. Patient feels like the food bolus is stuck in his throat. Patient states he had a similar episode like this several years ago however hasn't been evaluated by a specialist. Today he feels like the food is stuck in his lower chest. Patient reports that he tried coughing however unable to get any relief. States his been also vomiting.. The ROS documented in this emergency department record has been reviewed and confirmed by me. Those systems with pertinent positive or negative responses have been documented in the HPI. All other systems are other negative and/or noncontributory. PHYSICAL EXAM: General Impression: Alert and oriented x3, not in acute distress HEENT: Normocephalic atraumatic, extra-ocular movements intact, pupils equal and reactive to light bilaterally, mucous membranes moist. Cardiovascular: Heart regular rate and rhythm, S1&S2 audible, no murmurs, rubs or gallops Chest: Lungs clear to auscultation bilaterally, no rhonchi, no wheeze, no rales Abdomen: Bowel sounds present, abdomen soft, non-tender, non-distended, no organomegaly Musculoskeletal: Pulses present and equal in all extremities, no peripheral edema Motor: no focal deficits noted Neurological: CN II-XII grossly intact, no focal motor or sensory deficits noted Skin: Intact with no visualized rashes Psych: Normal affect and mood ED course: 69-year-old male with sensation of food impaction the throat. Vital signs upon arrival are within acceptable limits. Patient given carbonated beverage and glucagon. Patient was observed in emergency department however he did not express any relief of symptoms. Discussed patient case with Dr. Mcmanus, GI technology applications teacher who will make arrangements to have procedure pe rformed.Patient was at bedside awaiting upper endoscopy performed by Dr. Mead. Patient went to the bathroom and while in the bathroom he felt like food bolus passed. Patient tolerating by mouth showing no signs of distress at this time. he believe patient requires upper endoscopy for food impaction removal. He is urged to follow-up with gastroenterology for upper endoscopy and likely biopsy. Patient reports that he will schedule appointment outpatient. Tremors discussed. EKG interpretation: Ventricular rate 94, normal sinus rhythm,. Interval 118, care is 80, QTc 442. No MA prolongation, no QTC prolongation, no ST or T-wave changes noted. Overall, this EKG is unremarkable - Related Data Home Medications Medication Instructions Recorded Confirmed No Known Home Medications 06/19/19 06/19/19 Allergies Allergy/AdvReac Type Severity Reaction Status Date / Time Penicillins Allergy Rash/Hives Verified 06/19/19 08:43 ciprofloxacin [From Cipro] AdvReac Nausea & Verified 06/19/19 08:43 Vomiting Review of Systems ROS Statement: Those systems with pertinent positive or pertinent negative responses have been documented in the HPI. ROS Other: All systems not noted in ROS Statement are negative. Past Medical History Past Medical History: Cancer, CVA/TIA, Hypertension Additional Past Medical History / Comment(s): chronic back issues, skin CA, "minor stroke" 05/23/2017 History of Any Multi-Drug Resistant Organisms: None Reported Past Surgical History: Orthopedic Surgery Additional Past Surgical History / Comment(s): skin ca left ear, right ear, bilat shoulder, and right FA Past Psychological History: Anxiety Smoking Status: Current every day smoker Past Alcohol Use History: Daily, Occasional Past Drug Use History: None Reported - Past Family History Father Family Medical History: Myocardial Infarction ([place]) Mother Family Medical History: CVA/TIA General Exam Limitations: no limitations Course Vital Signs 06/19/19 06/19/19 06/19/19 08:27 09:56 12:25 Temperature 98.5 F Pulse Rate 77 93 89 Respiratory 18 18 18 Rate Blood Pressure 167/102 166/99 122/78 O2 Sat by Pulse 98 96 96 Oximetry 06/19/19 13:36 Temperature 97.9 F Pulse Rate 89 Respiratory 18 Rate Blood Pressure 132/93 O2 Sat by Pulse 97 Oximetry Medical Decision Making - Lab Data Result diagrams: 06/19/19 09:54 06/19/19 09:54 Lab Results 06/19/19 06/19/19 Range/Units 09:54 09:54 WBC 13.4 H (3.8-10.6) k/uL RBC 4.94 (4.30-5.90) m/uL Hgb 15.2 (13.0-17.5) gm/dL Hct 47.3 (39.0-53.0) % MCV 95.8 (80.0-100.0) fL MCH 30.8 (25.0-35.0) pg MCHC 32.1 (31.0-37.0) g/dL RDW 14.0 (11.5-15.5) % Plt Count 323 (150-450) k/uL Neutrophils % 79 % Lymphocytes % 11 % Monocytes % 7 % Eosinophils % 2 % Basophils % 1 % Neutrophils # 10.6 H (1.3-7.7) k/uL Lymphocytes # 1.5 (1.0-4.8) k/uL Monocytes # 0.9 (0-1.0) k/uL Eosinophils # 0.2 (0-0.7) k/uL Basophils # 0.1 (0-0.2) k/uL Sodium 143 (137-145) mmol/L Potassium 4.5 (3.5-5.1) mmol/L Chloride 105 (98-107) mmol/L Carbon Dioxide 24 (22-30) mmol/L Anion Gap 14 mmol/L BUN 20 (9-20) mg/dL Creatinine 0.99 (0.66-1.25) mg/dL Est GFR (CKD-EPI)AfAm >90 (>60 ml/min/1.73 sqM) Est GFR (CKD-EPI)NonAf 78 (>60 ml/min/1.73 sqM) Glucose 95 (74-99) mg/dL Calcium 10.3 H (8.4-10.2) mg/dL Disposition Clinical Impression: Food impaction of esophagus Disposition: HOME SELF-CARE Condition: Good Instructions (If sedation given, give patient instructions): Food Impaction (ED) Is patient prescribed a controlled substance at d/c from ED?: No Referrals: Saul Mcmanus MD [STAFF PHYSICIAN] - 1-2 days Time of Disposition: 14:06
[2019-06-19 10:19] LABS: Basophils # (A) 0.1 k/uL (0-0.2); Basophils % (A) 1 %; Eosinophils # (A) 0.2 k/uL (0-0.7); Eosinophils % (A) 2 %; HCT 47.3 % (39.0-53.0); HGB 15.2 gm/dL (13.0-17.5); Lymphocytes # (A) 1.5 k/uL (1.0-4.8); Lymphocytes % (A) 11 %; MCH 30.8 pg (25.0-35.0); MCHC 32.1 g/dL (31.0-37.0); MCV 95.8 fL (80.0-100.0); Mean Platelet Volume 6.3; Monocytes # (A) 0.9 k/uL (0-1.0); Monocytes % (A) 7 %; Neutrophils # (A) 10.6 k/uL (1.3-7.7); Neutrophils % (A) 79 %; Platelet Count 323 k/uL (150-450); RBC 4.94 m/uL (4.30-5.90); WBC 13.4 k/uL (3.8-10.6)
[2019-06-19 10:32] LABS: African American GFR (CKD) >90 (>60 ml/min/1.73 sqM); Anion Gap 14 mmol/L; Blood Urea Nitrogen 20 mg/dL (9-20); Calcium 10.3 mg/dL (8.4-10.2); Carbon Dioxide 24 mmol/L (22-30); Chloride 105 mmol/L (98-107); Glucose 95 mg/dL (74-99); Potassium 4.5 mmol/L (3.5-5.1); Sodium 143 mmol/L (137-145)
[2019-06-19] MEDS ORDERED: LORazepam 2 MG/ML INJ IV STA (11:28)
[2019-06-19 12:25] VITALS: PULSE 89
--- NOTE | 2019-06-19 12:26 | XR ---
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 FINDINGS: Neck: No prevertebral soft tissue swelling. No airway narrowing. There is slight asymmetric fullness in the right subglottic region which may be projectional. Epiglottis is normal. CHEST: Heart normal size. Aorta and pulmonary vasculature within normal limits. Hyperinflation with flatteni ng of the hemidiaphragms. Nipple shadow on the right. No consolidation or pleural effusion seen. IMPRESSION: 1. Neck: Possible soft tissue fullness in the right lateral glottic/subglottic region. Contrast enhan vickie CT neck can further evaluate if indicated. Otherwise, no airway compromise or retained radiopaque foreign body seen. 2. Chest: COPD. No acute cardiopulmonary process.
[2019-06-19 13:41] VITALS: BP 132/93; TEMP 97.9
== END 2019-06-19 14:22 | disposition home or self-care (01) ==
LOC: EC 08:19
DX: T18.128A Food in esophagus causing other injury, initial encounter (principal); F17.200 Nicotine dependence, unspecified, uncomplicated; Z88.0 Allergy status to penicillin; Z88.1 Allergy status to other antibiotic agents; Z86.73 Personal history of transient ischemic attack (TIA), and cerebral infarction without residual deficits
CPT/HCPCS: 99284; 96374; 96372; 36415; 93005; 80048; 85025; 70360; 71046; J2060; J1610

== ENCOUNTER 2020-11-04 09:31 | Inpatient (IN) | payer MEDICARE, OTHER ==
[2020-11-04] MEDS ORDERED: methylPREDNISolone SOD SUCCI 125 MG/2 ML VIAL IV STA (09:38)
[2020-11-04] MEDS ORDERED: IPRATROPIUM-ALBUTEROL 3 ML NEB INHALATION STA (09:38)
--- NOTE | 2020-11-04 09:44 | ED ---
SOB HPI - General Stated Complaint: SOB Time Seen by Provider: 11/04/20 09:34 Source: patient, EMS, RN notes reviewed Mode of arrival: EMS - History of Present Illness Initial Comments: This a 70-year-old male presents emergency department via EMS chief complaint shortness of breath. Patient states he steadily been getting worse since . Patient does admit that he has severe COPD he is not oxygen dependent that he continues to smoke. Patient states that today he felt that he was more short of breath than his been. He reports no fevers or chills. He states that he does have a slightly productive cough. Patient denies any chest pain currently. He states she's had some chest tightness at nighttime he has not been any recent breathing treatments or use of inhalers. Patient has no mental abdominal pain, nausea vomiting diarrhea constipation no leg swelling denies any calf pain no history DVT or PE. - Related Data Home Medications Medication Instructions Recorded Confirmed No Known Home Medications 06/19/19 11/04/20 Allergies Allergy/AdvReac Type Severity Reaction Status Date / Time Penicillins Allergy Rash/Hives Verified 11/04/20 10:28 ciprofloxacin [From Cipro] AdvReac Nausea & Verified 11/04/20 10:28 Vomiting Review of Systems ROS Statement: Those systems with pertinent positive or pertinent negative responses have been documented in the HPI. ROS Other: All systems not noted in ROS Statement are negative. Past Medical History Past Medical History: Cancer, CVA/TIA, Hypertension Additional Past Medical History / Comment(s): chronic back issues, skin CA, "minor stroke" 05/23/2017 History of Any Multi-Drug Resistant Organisms: None Reported Past Surgical History: Orthopedic Surgery Additional Past Surgical History / Comment(s): skin ca left ear, right ear, bilat shoulder, and right FA Past Psychological History: Anxiety Past Alcohol Use History: Daily, Occasional Past Drug Use History: None Reported - Past Family History Father Family Medical History: Myocardial Infarction ([place]) Mother Family Medical History: CVA/TIA General Exam General appearance: alert, in no apparent distress Head exam: Present: atraumatic, normocephalic, normal inspection Eye exam: Present: normal appearance, PERRL, EOMI. Absent: scleral icterus, conjunctival injection, periorbital swelling ENT exam: Present: normal exam, normal oropharynx, mucous membranes moist Neck exam: Present: normal inspection, full ROM. Absent: tenderness, meningismus, lymphadenopathy Respiratory exam: Present: wheezes, rhonchi. Absent: normal lung sounds bilaterally, respiratory distress, rales, stridor Cardiovascular Exam: Present: regular rate, normal rhythm, systolic murmur. Absent: normal heart sounds, diastolic murmur, rubs, gallop, clicks GI/Abdominal exam: Present: soft, normal bowel sounds. Absent: distended, tenderness, guarding, rebound, rigid Neurological exam: Present: alert, oriented X3 Skin exam: Present: warm, dry, intact, normal color. Absent: rash Course Vital Signs 11/04/20 11/04/20 09:43 10:37 Temperature 98.0 F Pulse Rate 89 92 Respiratory 18 Rate Blood Pressure 169/104 O2 Sat by Pulse 90 L Oximetry Medical Decision Making - Medical Decision Making Physical x-ray shows multifocal airspace disease concerning for multifocal pneumonia or CHF. Patient's BMP is sniffling elevated prior echo in 2018 showed EF of 55. Patient does have noted murmur patient has no known history of this. Patient's pulse ox is 90%. Patient has severe COPD. Patient was given multiple breathing treatments. Patient continues to be dyspneic. Coronavirus testing is negative. Patient will be admitted for steroids, breathing treatment, a ntibiotics, echocardiogram - Lab Data Result diagrams: 11/04/20 09:54 11/04/20 09:54 Lab Results 11/04/20 11/04/20 11/04/20 Range/Units 09:54 09:54 09:54 WBC 12.6 H (3.8-10.6) k/uL RBC 4.39 (4.30-5.90) m/uL Hgb 12.5 L (13.0-17.5) gm/dL Hct 37.7 L (39.0-53.0) % MCV 85.8 (80.0-100.0) fL MCH 28.5 (25.0-35.0) pg MCHC 33.2 (31.0-37.0) g/dL RDW 13.2 (11.5-15.5) % Plt Count 453 H (150-450) k/uL MPV 6.5 Neutrophils % 84 % Lymphocytes % 7 % Monocytes % 7 % Eosinophils % 1 % Basophils % 1 % Neutrophils # 10.6 H (1.3-7.7) k/uL Lymphocytes # 0.9 L (1.0-4.8) k/uL Monocytes # 0.8 (0-1.0) k/uL Eosinophils # 0.1 (0-0.7) k/uL Basophils # 0.1 (0-0.2) k/uL PT 10.8 (9.0-12.0) sec INR 1.1 (<1.2) APTT 23.7 (22.0-30.0) sec Sodium 129 L (137-145) mmol/L Potassium 4.8 (3.5-5.1) mmol/L Chloride 97 L (98-107) mmol/L Carbon Dioxide 24 (22-30) mmol/L Anion Gap 8 mmol/L BUN 12 (9-20) mg/dL Creatinine 0.71 (0.66-1.25) mg/dL Est GFR (CKD-EPI)AfAm >90 (>60 ml/min/1.73 sqM) Est GFR (CKD-EPI)NonAf >90 (>60 ml/min/1.73 sqM) Glucose 114 H (74-99) mg/dL Plasma Lactic Acid Robby (0.7-2.0) mmol/L Calcium 8.9 (8.4-10.2) mg/dL Magnesium 2.1 (1.6-2.3) mg/dL Total Bilirubin 1.4 H (0.2-1.3) mg/dL AST 31 (17-59) U/L ALT 29 (4-49) U/L Alkaline Phosphatase 79 (38-126) U/L NT-Pro-B Natriuret Pep pg/mL Total Protein 7.0 (6.3-8.2) g/dL Albumin 3.3 L (3.5-5.0) g/dL Coronavirus (PCR) (Not Detectd) 11/04/20 11/04/20 11/04/20 Range/Units 09:54 09:54 09:54 WBC (3.8-10.6) k/uL RBC (4.30-5.90) m/uL Hgb (13.0-17.5) gm/dL Hct (39.0-53.0) % MCV (80.0-100.0) fL MCH (25.0-35.0) pg MCHC (31.0-37.0) g/dL RDW (11.5-15.5) % Plt Count (150-450) k/uL MPV Neutrophils % % Lymphocytes % % Monocytes % % Eosinophils % % Basophils % % Neutrophils # (1.3-7.7) k/uL Lymphocytes # (1.0-4.8) k/uL Monocytes # (0-1.0) k/uL Eosinophils # (0-0.7) k/uL Basophils # (0-0.2) k/uL PT (9.0-12.0) sec INR (<1.2) APTT (22.0-30.0) sec Sodium (137-145) mmol/L Potassium (3.5-5.1) mmol/L Chloride (98-107) mmol/L Carbon Dioxide (22-30) mmol/L Anion Gap mmol/L BUN (9-20) mg/dL Creatinine (0.66-1.25) mg/dL Est GFR (CKD-EPI)AfAm (>60 ml/min/1.73 sqM) Est GFR (CKD-EPI)NonAf (>60 ml/min/1.73 sqM) Glucose (74-99) mg/dL Plasma Lactic Acid Robby 1.5 (0.7-2.0) mmol/L Calcium (8.4-10.2) mg/dL Magnesium (1.6-2.3) mg/dL Total Bilirubin (0.2-1.3) mg/dL AST (17-59) U/L ALT (4-49) U/L Alkaline Phosphatase (38-126) U/L NT-Pro-B Natriuret Pep 46059 pg/mL Total Protein (6.3-8.2) g/dL Albumin (3.5-5.0) g/dL Coronavirus (PCR) Not Detected (Not Detectd) - EKG Data -: EKG Interpreted by Me EKG Comments: EKG performed at 9:40 sinus rhythm with right bundle rate of 99 OH 128 QRS 126 QT/QTC 384/492 Disposition Clinical Impression: COPD with exacerbation, Atypical pneumonia, Acute CHF Disposition: ADMITTED IP TO THIS [facility] Condition: Poor Referrals: None,Stated [Primary Care Provider] - 1-2 days
[2020-11-04 10:17] LABS: Basophils # (A) 0.1 k/uL (0-0.2); Basophils % (A) 1 %; Eosinophils # (A) 0.1 k/uL (0-0.7); Eosinophils % (A) 1 %; HCT 37.7 % (39.0-53.0); HGB 12.5 gm/dL (13.0-17.5); Lymphocytes # (A) 0.9 k/uL (1.0-4.8); Lymphocytes % (A) 7 %; MCH 28.5 pg (25.0-35.0); MCHC 33.2 g/dL (31.0-37.0); MCV 85.8 fL (80.0-100.0); Mean Platelet Volume 6.5; Monocytes # (A) 0.8 k/uL (0-1.0); Monocytes % (A) 7 %; Neutrophils # (A) 10.6 k/uL (1.3-7.7); Neutrophils % (A) 84 %; Platelet Count 453 k/uL (150-450); RBC 4.39 m/uL (4.30-5.90); RDW 13.2 % (11.5-15.5); WBC 12.6 k/uL (3.8-10.6)
[2020-11-04 10:23] LABS: ALT 29 U/L (4-49); African American GFR (CKD) >90 (>60 ml/min/1.73 sqM); Albumin 3.3 g/dL (3.5-5.0); Anion Gap 8 mmol/L; Blood Urea Nitrogen 12 mg/dL (9-20); Calcium 8.9 mg/dL (8.4-10.2); Carbon Dioxide 24 mmol/L (22-30); Chloride 97 mmol/L (98-107); Glucose 114 mg/dL (74-99); Non-African American GFR(CKD) >90 (>60 ml/min/1.73 sqM); Sodium 129 mmol/L (137-145); Total Bilirubin 1.4 mg/dL (0.2-1.3)
--- NOTE | 2020-11-04 10:32 | XR ---
EXAMINATION TYPE: XR chest 2V DATE OF EXAM: 11/04/2020 COMPARISON: 06/19/2019 HISTORY: 70-year-old male shortness of breath, difficulty breathing TECHNIQUE: PA and lateral views FINDINGS: Patient is rotated towards the right. Heart upper limits of normal in size. Extensive consolidation t hroughout the left lung and right base and small, right greater than left pleural effusions. IMPRESSION: Small effusions, right greater than left and multifocal airspace disease, left greater than right. Co rrelate for multifocal pneumonia or sequela of CHF and atypical pulmonary edema.
[2020-11-04 10:34] LABS: AST 31 U/L (17-59); Alkaline Phosphatase 79 U/L (38-126); Magnesium 2.1 mg/dL (1.6-2.3); Potassium 4.8 mmol/L (3.5-5.1)
[2020-11-04 10:40] LABS: INR 1.1 (<1.2); Partial Thromboplastin Time 23.7 sec (22.0-30.0); Prothrombin Time 10.8 sec (9.0-12.0)
[2020-11-04] MEDS ORDERED: AZITHROMYCIN 500 MG in SODIUM CHLORIDE 0.9% 250 ML IVPB STA (10:54)
[2020-11-04] MEDS ORDERED: ALBUTEROL NEBULIZED 2.5 MG/3 ML INHALATION PRN (10:58)
[2020-11-04] MEDS ORDERED: FUROSEMIDE 10 MG/ML 4 ML VIAL IV STA (11:01)
[2020-11-04] MEDS ORDERED: methylPREDNISolone SOD SUCCI 125 MG/2 ML VIAL IV SCH (12:00)
[2020-11-04] MEDS: IPRATROPIUM-ALBUTEROL 3 ML NEB INHALATION SCH ×3 (12:12→21:24)
[2020-11-04] MEDS ORDERED: ACETAMINOPHEN TAB 325 MG TAB PO PRN (12:34)
--- NOTE | 2020-11-04 12:35 | P.HPIM ---
History of Present Illness H&P Date: 11/04/20 Chief Complaint: Shortness of breath This is a 70-year-old male with past medical history noted below significant for essential hypertension and underlying COPD who presented to the emergency room with worsening shortness of breath. Patient said that his symptoms started 2 weeks ago and is being getting progressively worse. He said that he is having intermittent cough that is generally nonproductive and occasionally productive of clear sputum. He denies any fevers or chills. No wheezing. No flulike symptoms. Patient is a current every day smoker and smokes approximately 6 cigarettes per day. He used to smoke heavier in the past. Patient said that he did not take any medications at home for the past 6 months. He lost follow-up with his primary care physician. He otherwise denies any chest pain or palpitation. No orthopnea. No lower extremity edema. Patient was evaluated in the ER and will be admitted to the hospital for further management of his med ical problems noted below. Review of Systems Review of system: 14 points review of systems were obtained and were negative except to what were mentioned in the HPI. Past Medical History Past Medical History: Cancer, CVA/TIA, Hypertension Additional Past Medical History / Comment(s): chronic back issues, skin CA, "minor stroke" 05/23/2017 History of Any Multi-Drug Resistant Organisms: None Reported Past Surgical History: Orthopedic Surgery Additional Past Surgical History / Comment(s): skin ca left ear, right ear, bilat shoulder, and right FA Past Psychological History: Anxiety Past Alcohol Use History: Daily, Occasional Past Drug Use History: None Reported - Past Family History Father Family Medical History: Myocardial Infarction ([place]) Mother Family Medical History: CVA/TIA Medications and Allergies Home Medications Medication Instructions Recorded Confirmed Type No Known Home Medications 06/19/19 11/04/20 History Allergies Allergy/AdvReac Type Severity Reaction Status Date / Time Penicillins Allergy Rash/Hives Verified 11/04/20 10:28 ciprofloxacin [From Cipro] AdvReac Nausea & Verified 11/04/20 10:28 Vomiting Physical Exam Vitals: Vital Signs Temp Pulse Resp BP Pulse Ox 11/04/20 12:12 95 11/04/20 12:00 89 22 148/128 95 11/04/20 11:00 96 18 161/89 99 11/04/20 10:57 94 11/04/20 10:37 92 11/04/20 10:30 93 18 153/95 99 11/04/20 09:43 98.0 F 89 18 169/104 90 L Intake and Output 11/03/20 11/04/20 11/04/20 22:59 06:59 14:59 Other: Weight 68.039 kg General: The patient is awake and alert, in no distress Eye: there is normal conjunctiva bilaterally. Neck: The neck is supple, there is no JVD. Cardiovascular: Normal S1-S2, no S3-S4, 4/6 systolic murmur Respiratory: Lungs diminished with bibasilar crackles Gastrointestinal: Abdomen is soft, nontender Musculoskeletal: There is no pedal edema. Neurological:. Speech is normal. Skin: Skin is warm and dry Results CBC & Chem 7: 11/04/20 09:54 11/04/20 09:54 Labs: Abnormal Lab Results - Last 24 Hours (Table) 11/04/20 11/04/20 11/04/20 Range/Units 09:54 09:54 09:54 WBC 12.6 H (3.8-10.6) k/uL Hgb 12.5 L (13.0-17.5) gm/dL Hct 37.7 L (39.0-53.0) % Plt Count 453 H (150-450) k/uL Neutrophils # 10.6 H (1.3-7.7) k/uL Lymphocytes # 0.9 L (1.0-4.8) k/uL Sodium 129 L (137-145) mmol/L Chloride 97 L (98-107) mmol/L Glucose 114 H (74-99) mg/dL Total Bilirubin 1.4 H (0.2-1.3) mg/dL Troponin I 0.061 H* (0.000-0.034) ng/mL Albumin 3.3 L (3.5-5.0) g/dL Assessment and Plan Assessment: This is a 70-year-old male with past medical history noted below who presented to the emergency room with worsening shortness of breath and cough. Patient was evaluated in the ER and will be admitted to the hospital for further management of his medical problems noted below. 1. Left lung pneumonia, started on IV ceftriaxone and oral azithromycin. Sputum culture ordered. Pro-calcitonin pending. COVID_19 PCR negative 2. Suspected congestive heart failure exacerbation, with elevated BNP and evidence of fluid overload on chest x-ray. Started on IV Lasix 40 mg twice daily. Repeat echocardiogram ordered and pending. Daily weights. Strict I's and O's. 3. Moderate aortic stenosis with evidence of left atrial enlargement on 12-lead EKG and a loud systolic murmur. Cardiology consulted for further evaluation 4. Troponin elevation, most likely non-thrombotic troponin leak. 12-lead EKG showed no acute ischemic changes. Patient denies any chest pain. Repeat troponin. Continue telemetry monitoring. 5. Acute COPD exacerbation, mild. Patient received Solu-Medrol 125 mg IV 1 in the ER. Continue duo nebs every 6 hours. Avoid further steroids at this time as suspicion for heart failure is greater than COPD exacerbation at this point 6. Tobacco abuse: Counseled extensively to quit. Nicotine patch ordered. 7. Hyponatremia
[2020-11-04] MEDS ORDERED: NITROGLYCERIN SL TABS 0.4 MG TAB SUBLINGUAL STA (13:01)
[2020-11-04] MEDS: METOPROLOL TARTRATE 25 MG TAB PO SCH ×2 (13:17→20:34)
[2020-11-04] MEDS: NICOTINE 7MG/24HR PATCH TRANSDERM SCH (13:17)
[2020-11-04] MEDS: lisinopriL 20 MG TAB PO SCH (13:17)
[2020-11-04] MEDS: cloNIDine HCL 0.1 MG TAB PO SCH ×2 (13:18→21:32)
--- NOTE | 2020-11-04 13:38 | ECHOF ---
Referral Reason:CHF, murmur MEASUREMENTS -------- HEIGHT: 172.7 cm WEIGHT: 68.0 kg BP: 161/89 RVIDd: 3.6 cm (< 3.3) IVSd: 1.4 cm (0.6 - 1.1) LVIDd: 4.3 cm (3.9 - 5.3) LVPWd: 1.6 cm (0.6 - 1.1) IVSs: 1.8 cm LVIDs: 3.5 cm LVPWs: 2.0 cm LA Diam: 4.1 cm (2.7 - 3.8) LAESV Index (A-L): 35.44 ml/m Ao Diam: 3.1 cm (2.0 - 3.7) AV Cusp: 1.4 cm (1.5 - 2.6) MV EXCURSION: 18.395 mm (> 18.000) MV EF SLOPE: 45 mm/s (70 - 150) EPSS: 0.8 cm MV E Tito: 1.16 m/s MV DecT: 126 ms MV A Tito: 0.84 m/s MV E/A Ratio: 1.38 AV maxP.70 mmHg AV meanP.56 mmHg AR PHT: 271 ms RAP: 5.00 mmHg RVSP: 63.80 mmHg FINDINGS -------- Resting tachycardia (HR>100bpm). This was a technically good study. The left ventricular size is normal. There is moderate concentric left ventricular hypertrophy. O verall left ventricular systolic function is mild-moderately impaired with, an EF between 40 - 45 %. The right ventricle is mildly enlarged. LA is moderately dilated 34-39 ml/m2 The right atrium is normal in size. Interatrial and interventricular septum intact. There is severe aortic valve sclerosis. There is moderate aortic regurgitation. There is severe a ortic stenosis present. Peak/mean gradient across the Aortic Valve is 67.70mmHg / 43.56mmHg. Can' t exclude Bicuspid valve vs fused cusp. The mitral valve leaflets are mild to moderately thickened. Mild mitral annular calcification pres ent. Mild mitral regurgitation is present. Moderate tricuspid regurgitation present. There is severe pulmonary hypertension. The right ventr icular systolic pressure, as measured by Doppler, is 63.80mmHg. The pulmonic valve was not well visualized. The aortic root size is normal. IVC Not well visulized. There is no pericardial effusion. CONCLUSIONS -------- 1. The left ventricular size is normal. 2. There is moderate concentric left ventricular hypertrophy. 3. Overall left ventricular systolic function is mild-moderately impaired with, an EF between 40 - 45 %. 4. The right ventricle is mildly enlarged. 5. LA is moderately dilated 34-39 ml/m2 6. There is moderate aortic regurgitation. 7. There is severe aortic stenosis present. 8. Peak/mean gradient across the Aortic Valve is 67.70mmHg / 43.56mmHg. 9. The mitral valve leaflets are mild to moderately thickened. 10. Mild mitral annular calcification present. 11. Mild mitral regurgitation is present. 12. Moderate tricuspid regurgitation present. 13. There is severe pulmonary hypertension. 14. The right ventricular systolic pressure, as measured by Doppler, is 63.80mmHg. 15. There is no pericardial effusion. ENVIRONMENTAL FIELD TECHNICIAN: Aylin Vance RDCS
--- NOTE | 2020-11-04 16:23 | CONS ---
CONSULTATION Mr. Gokul Cardona is a 70-year-old gentleman who used to see Dr. Miller as his primary care physician and is known to have hypertension, was supposed to be on lisinopril but he has not been taking any medications for at least 6 months to 1 year and came into the emergency room complaining of shortness of breath which has been progressively getting worse for the last 10-12 days. He has history of smoking. He has COPD and he has hypertension that we know of, but has not been taking medications. He also complained of some nondescript chest tightness as well. After arrival, he received some Lasix. He feels better. His breathing easier. I have reviewed his previous echocardiogram, ejection fraction at that time was preserved at 55%, but he had moderate aortic stenosis. At the time of my evaluation, he is resting comfortably and appears not to be short of breath. His EKG revealed a sinus mechanism with a right bundle and left atrial abnormality with nonspecific ST changes. Chest x-ray has revealed small effusions, right greater than left with an associated pneumonia cannot be totally excluded. PAST MEDICAL HISTORY: Remarkable for history of hypertension, aortic stenosis, smoking, COPD. He has a question of TIA in the past. Details are unavailable. MEDICATIONS: None. ALLERGIES: He is allergic to PENICILLIN and CIPRO. On examination, blood pressure is 150/80, pulse rate is 88 per minute, regular. HEENT: Unremarkable. Fundus was not examined by me. Neck is supple, there is JVD of 1-1.5 cm. No carotid bruit. Heart exam reveals S1, S2 with ejection systolic murmur. Second heart sound is not easily audible. Murmur is at least mid-peaking. Possibility of moderate to severe aortic stenosis clinically. Lungs revealed diminished air entry suggestive of COPD with diminished breath sounds in both bases. Abdomen is soft, nontender. Lower extremities reveal bilateral trace edema. Diminished pulses. Central nervous system grossly, no focal deficits. LABORATORY DATA: Suggests that his BNP is over 17,000. The troponin is 0.061, renal function is normal and white count is mildly elevated. IMPRESSION: 1. Exacerbation of systolic heart failure clinically. 2. Moderate to severe aortic stenosis clinically. 3. Accelerated hypertension, untreated by patient's choice. 4. Probable concomitant pneumonia with some pleural effusion. RECOMMENDATIONS: I would recommend that we diurese him with Lasix 40 mg IV push q.12 hours. Leave him on subcu heparin. Resume lisinopril which he was taking and add a beta tomasa. The patient has possible pneumonia as well and antibiotics have already been initiated. His blood pressure control is suboptimal. I will add clonidine to his regimen and await the information on echocardiogram. I suspect he will have moderate if not severe aortic stenosis clinically. Prognosis remains guarded. Thank you very much for the consult. MADDI / IJN: [id number] /
[2020-11-04] MEDS: HEPARIN SODIUM,PORCINE 5,000 UNIT/ML 1 ML VIAL SQ SCH (20:35)
[2020-11-04] MEDS: FUROSEMIDE 10 MG/ML 4 ML VIAL IV SCH (20:35)
[2020-11-04] MEDS ORDERED: ATORVASTATIN 20 MG TAB PO SCH (21:00)
--- NOTE | 2020-11-05 07:14 | XR ---
EXAMINATION TYPE: XR chest 2V DATE OF EXAM: 11/05/2020 COMPARISON: Chest x-ray from yesterday and older studies. CT July 17, 2018 HISTORY: Shortness of breath and pneumonia. Progress study. TECHNIQUE: Frontal and lateral views of the chest are obtained. FINDINGS: The cardiac silhouette size remains within normal limits. Persistent small bilateral pleur al effusions or pleural fluid collections with left lateral component redemonstrated. Persistent diff use left lung opacity. Right basilar compressive atelectasis and/or infiltrate along with fluid in fi ssure right mid lung with adjacent atelectatic change all redemonstrated. The osseous structures gogo in demineralized. IMPRESSION: Stable small bilateral pleural effusions or fluid collections. Stable diffuse left lung edema and/or infiltrates and patchy right mid to basilar atelectasis and/or less likely infiltrates. Correlate clinically.
[2020-11-05] MEDS: METOPROLOL TARTRATE 25 MG TAB PO SCH ×2 (08:06→21:02)
[2020-11-05] MEDS: NICOTINE 7MG/24HR PATCH TRANSDERM SCH (08:06)
[2020-11-05] MEDS: lisinopriL 20 MG TAB PO SCH (08:06)
[2020-11-05] MEDS: IPRATROPIUM-ALBUTEROL 3 ML NEB INHALATION SCH ×4 (08:06→19:06)
[2020-11-05] MEDS: cloNIDine HCL 0.1 MG TAB PO SCH ×2 (08:06→21:03)
[2020-11-05] MEDS: FUROSEMIDE 10 MG/ML 4 ML VIAL IV SCH ×2 (08:06→21:03)
[2020-11-05] MEDS ORDERED: AZITHROMYCIN 250 MG TAB PO SCH (09:00)
[2020-11-05 09:29] LABS: Basophils % (A) 0 %; Eosinophils % (A) 0 %; HCT 41.4 % (39.0-53.0); HGB 13.2 gm/dL (13.0-17.5); Hypochromasia Slight; Lymphocytes # (A) 1.1 k/uL (1.0-4.8); Lymphocytes % (A) 5 %; MCHC 31.8 g/dL (31.0-37.0); MCV 87.9 fL (80.0-100.0); Mean Platelet Volume 6.6; Monocytes # (A) 1.5 k/uL (0-1.0); Monocytes % (A) 7 %; Neutrophils # (A) 17.8 k/uL (1.3-7.7); Neutrophils % (A) 86 %; Platelet Count 548 k/uL (150-450); RBC 4.71 m/uL (4.30-5.90); WBC 20.8 k/uL (3.8-10.6)
[2020-11-05 09:38] LABS: African American GFR (CKD) >90 (>60 ml/min/1.73 sqM); Anion Gap 13 mmol/L; Blood Urea Nitrogen 22 mg/dL (9-20); Carbon Dioxide 24 mmol/L (22-30); Chloride 95 mmol/L (98-107); Cholesterol 156 mg/dL (<200); Glucose 115 mg/dL (74-99); Non-African American GFR(CKD) 81 (>60 ml/min/1.73 sqM); Potassium 4.3 mmol/L (3.5-5.1); Sodium 132 mmol/L (137-145); Triglycerides 82 mg/dL (<150)
[2020-11-05 09:41] LABS: HDL Cholesterol 53 mg/dL (40-60); LDL Cholesterol,Calculated 87 mg/dL (0-99)
--- NOTE | 2020-11-05 09:50 | P.CNPUL ---
History of Present Illness Consult date: 11/05/20 Reason for consult: dyspnea History of present illness: 70-year-old male patient coming in for worsening shortness of breath with emergency. He is known to have COPD and previous history of CVA and hypertension. He was diagnosed having acute COPD exacerbation. He was having intermittent cough and occasional sputum production. No fever or chills. The patient checked negative for COVID 19 infection. However, the chest x-ray was abnormal. The patient had bilateral pleural effusions. There was fluid in the right fissure. The pleural effusions were small. There is a right basilar atelectasis/infiltration in addition to a left upper lobe infiltration. The white cell count was at 12 and currently is up to 20.8. Coagulation profile is within normal limits. He had an elevated proBNP level of 17,009 100. Sodium is 129. BUN and creatinine are stable. Troponin is at 0.01 and 0.06, the ejection fraction on the echocardiogram showed 40-45%. The patient also had severe aortic stenosis, moderate aortic regurgitation, 005 respectively 3. On echo, the patient ejection fraction 40-45% with severe aortic stenosis and severe pulm onary hypertension with a PA pressure of 63.the patient was taking hypertension medication and he stopped all his medication and the patient had an elevated pressure at time of admission. Review of Systems Constitutional: Reports weakness Eyes: denies as per HPI, denies blurred vision, denies bulging eye, denies decreased vision, denies diplopia, denies discharge, denies dry eye, denies irritation, denies itching, denies pain, denies photophobia, denies loss of peripheral vision, denies loss of vision, denies tunnel vision/blind spots Ears: deny: decreased hearing, ear discharge, earache, tinnitus Ears, nose, mouth and throat: Reports as per HPI Breasts: absent: as per HPI, gynecomastia Cardiovascular: Reports decreased exercise tolerance, Reports dyspnea on exertion, Reports paroxysmal nocturnal dyspnea, Reports shortness of breath Respiratory: Reports cough, Reports dyspnea Gastrointestinal: Reports as per HPI Genitourinary: Reports as per HPI Musculoskeletal: Reports as per HPI Musculoskeletal: absent: ankle pain, ankle stiffness, ankle swelling Integumentary: Reports as per HPI Neurological: Reports as per HPI Psychiatric: Reports as per HPI Endocrine: Reports as per HPI Hematologic/Lymphatic: Reports as per HPI Allergic/Immunologic: Reports as per HPI Past Medical History Past Medical History: Cancer, COPD, CVA/TIA, Hypertension Additional Past Medical History / Comment(s): chronic back issues, skin CA, "minor stroke" 05/23/2017 History of Any Multi-Drug Resistant Organisms: None Reported Past Surgical History: Orthopedic Surgery Additional Past Surgical History / Comment(s): skin ca left ear, right ear, bilat shoulder, and right FA Past Anesthesia/Blood Transfusion Reactions: No Reported Reaction Past Psychological History: Anxiety Past Alcohol Use History: Daily, Occasional Past Drug Use History: None Reported - Past Family History Father Family Medical History: Myocardial Infarction ([place]) Mother Family Medical History: CVA/TIA Medications and Allergies Home Medications Medication Instructions Recorded Confirmed Type No Known Home Medications 06/19/19 11/04/20 History Allergies Allergy/AdvReac Type Severity Reaction Status Date / Time Penicillins Allergy Rash/Hives Verified 11/04/20 10:28 ciprofloxacin [From Cipro] AdvReac Nausea & Verified 11/04/20 10:28 Vomiting Physical Exam Vitals: Vital Signs Temp Pulse Pulse Resp BP BP Pulse Ox 11/05/20 08:17 92 11/05/20 08:09 84 11/05/20 04:00 97.7 F 81 16 119/77 98 11/05/20 00:00 97.8 F 77 18 112/66 97 11/04/20 21:33 98 11/04/20 21:25 98 11/04/20 20:00 97.5 F L 92 18 120/81 95 11/04/20 17:46 97.9 F 97 18 92/69 95 11/04/20 17:00 92 18 92/68 95 11/04/20 16:53 87 11/04/20 16:40 87 20 108/86 99 11/04/20 16:36 100 11/04/20 14:58 66 18 131/88 95 11/04/20 14:00 82 18 126/92 96 11/04/20 13:00 98 18 134/99 95 11/04/20 12:56 99 18 189/81 95 11/04/20 12:25 96 11/04/20 12:12 95 11/04/20 12:00 89 22 148/128 95 11/04/20 11:00 96 18 161/89 99 11/04/20 10:57 94 11/04/20 10:37 92 11/04/20 10:30 93 18 153/95 99 Intake and Output 11/04/20 11/05/20 11/05/20 22:59 06:59 14:59 Other: Weight 62.5 kg The patient appeared well nourished and normally developed. Vital signs as documented. Head exam is unremarkable. No scleral icterus or corneal arcus noted. Neck is without jugular venous distension, thyromegaly, or carotid bruit s. Carotid upstrokes are brisk bilaterally. Lungs sounds are diminished in the patient's back in lung bases bilaterally.Cardiac exam reveals the PMI to be normally sized and situated. Rhythm is regular. First and second heart sounds normal. the patient is a systolic ejection murmur grade 3/6 consistent with aortic stenosis, rubs or gallops. Abdominal exam reveals normal bowel sounds, no masses, no organomegaly and no aortic enlargement. Extremities are nonedematous and both femoral and pedal pulses are normal.Examination of the skin revealed no evidence of significant rashes, suspicious appearing nevi or other concerning lesions.Neurologically, the patient is awake and alert and the patient does not have any focal neurological deficit. Cranial nerves are essentially intact.Examination of the skin revealed no evidence of significant rashes, suspicious appearing nevi or other concerning lesions.Neurologically, the patient is awake and alert and the patient does not have any focal neurological deficit. Cranial nerves are essentially intact. Results - Laboratory Findings CBC and BMP: 11/05/20 09:15 11/05/20 09:15 ABG WBC 20.8 k/uL (3.8-10.6) H 11/05/20 09:15 RBC 4.71 m/uL (4.30-5.90) 11/05/20 09:15 Hgb 13.2 gm/dL (13.0-17.5) 11/05/20 09:15 Hct 41.4 % (39.0-53.0) 11/05/20 09:15 MCV 87.9 fL (80.0-100.0) 11/05/20 09:15 MCH 28.0 pg (25.0-35.0) 11/05/20 09:15 MCHC 31.8 g/dL (31.0-37.0) 11/05/20 09:15 RDW 13.0 % (11.5-15.5) 11/05/20 09:15 Plt Count 548 k/uL (150-450) H 11/05/20 09:15 MPV 6.6 11/05/20 09:15 Neutrophils % 86 % 11/05/20 09:15 Lymphocytes % 5 % 11/05/20 09:15 Monocytes % 7 % 11/05/20 09:15 Eosinophils % 0 % 11/05/20 09:15 Basophils % 0 % 11/05/20 09:15 Neutrophils # 17.8 k/uL (1.3-7.7) H 11/05/20 09:15 Lymphocytes # 1.1 k/uL (1.0-4.8) 11/05/20 09:15 Monocytes # 1.5 k/uL (0-1.0) H 11/05/20 09:15 Eosinophils # 0.0 k/uL (0-0.7) 11/05/20 09:15 Basophils # 0.0 k/uL (0-0.2) 11/05/20 09:15 Hypochromasia Slight 11/05/20 09:15 PT 10.8 sec (9.0-12.0) 11/04/20 09:54 INR 1.1 (<1.2) 11/04/20 09:54 APTT 23.7 sec (22.0-30.0) 11/04/20 09:54 Sodium 129 mmol/L (137-145) L 11/04/20 09:54 Potassium 4.8 mmol/L (3.5-5.1) 11/04/20 09:54 Chloride 97 mmol/L (98-107) L 11/04/20 09:54 Carbon Dioxide 24 mmol/L (22-30) 11/04/20 09:54 Anion Gap 8 mmol/L 11/04/20 09:54 BUN 12 mg/dL (9-20) 11/04/20 09:54 Creatinine 0.71 mg/dL (0.66-1.25) 11/04/20 09:54 Est GFR (CKD-EPI)AfAm >90 (>60 ml/min/1.73 sqM) 11/04/20 09:54 Est GFR (CKD-EPI)NonAf >90 (>60 ml/min/1.73 sqM) 11/04/20 09:54 Glucose 114 mg/dL (74-99) H 11/04/20 09:54 Plasma Lactic Acid Robby 1.5 mmol/L (0.7-2.0) 11/04/20 09:54 Calcium 8.9 mg/dL (8.4-10.2) 11/04/20 09:54 Magnesium 2.1 mg/dL (1.6-2.3) 11/04/20 09:54 Total Bilirubin 1.4 mg/dL (0.2-1.3) H 11/04/20 09:54 AST 31 U/L (17-59) 11/04/20 09:54 ALT 29 U/L (4-49) 11/04/20 09:54 Alkaline Phosphatase 79 U/L (38-126) 11/04/20 09:54 Troponin I 0.059 ng/mL (0.000-0.034) H* 11/04/20 12:45 NT-Pro-B Natriuret Pep 03323 pg/mL 11/04/20 09:54 Total Protein 7.0 g/dL (6.3-8.2) 11/04/20 09:54 Albumin 3.3 g/dL (3.5-5.0) L 11/04/20 09:54 Procalcitonin 0.10 ng/mL (0.02-0.09) H 11/04/20 09:54 Coronavirus (PCR) Not Detected (Not Detectd) 11/04/20 09:54 PT/INR, D-dimer PT 10.8 sec (9.0-12.0) 11/04/20 09:54 INR 1.1 (<1.2) 11/04/20 09:54 Abnormal lab findings: Abnormal Labs 11/04/20 11/04/20 12 09:54 09:54 09:54 WBC 12.6 H Hgb 12.5 L Hct 37.7 L Plt Count 453 H Neutrophils # 10.6 H Lymphocytes # 0.9 L Monocytes # Sodium 129 L Chloride 97 L BUN Glucose 114 H Total Bilirubin 1.4 H Troponin I 0.061 H* Albumin 3.3 L Procalcitonin 11/04/20 11/04/20 11/05/20 09:54 12:45 09:15 WBC 20.8 H Hgb Hct Plt Count 548 H Neutrophils # 17.8 H Lymphocytes # Monocytes # 1.5 H Sodium Chloride BUN Glucose Total Bilirubin Troponin I 0.059 H* Albumin Procalcitonin 0.10 H 11/05/20 09:15 WBC Hgb Hct Plt Count Neutrophils # Lymphocytes # Monocytes # Sodium 132 L Chloride 95 L BUN 22 H Glucose 115 H Total Bilirubin Troponin I Albumin Procalcitonin - Diagnostic Findings Chest x-ray: image reviewed Assessment and Plan Plan: 1 acute shortness of breath likely on the basis of decompensated heart failure and valvular heart disease. The patient has interval drop in the patient's left ventricular ejection fraction which is on 40% and the same time the patient was found to have severe aortic stenosis.. Quit taking the medication and the patient had an acute hypertensive reaction which probably contributed to his heart failure. 2 small bilateral pleural effusion secondary to above 3 interstitial pulmonary edema secondary to above 4 severe aortic stenosis with secondary pulmonary hypertension and impaired LV function 5 COPD 6 History of smoking 7 history of CVA 8 skin cancer 9. Right bundle branch block pattern with frequent PACs plan Recommended that blood pressure control IV Lasix 40 mg every 12 hours The pro-calcitonin Level Is Low and Infection Is Doubtful. I believe the presentation is most consistent with CHF. Monitor the cardiac rhythm and consider the possibility of atrial fibrillation complicating his course. He has a right bundle branch block pattern. Continue DuoNeb nebulized treatments around the clock Smoking cessation counseling PFT on outpatient basis Cardiac catheterization later stage to assess coronary anatomy and evaluate this patient for aortic stenosis interventions/treatment
--- NOTE | 2020-11-05 11:03 | P.PN ---
Subjective Progress Note Date: 11/05/20 Patient is feeling better today. Shortness of breath is improving. He is diuresing well. No wheezing or cough this morning. Objective - Vital Signs Vital signs: Vital Signs Temp 97.7 F 11/05/20 04:00 Pulse 92 11/05/20 08:17 Resp 16 11/05/20 04:00 BP 119/77 11/05/20 04:00 Pulse Ox 98 11/05/20 04:00 Intake & Output 11/04/20 11/05/20 11/05/20 18:59 06:59 18:59 Intake Total 240 Output Total 800 Balance -800 240 Weight 68.039 kg 62.5 kg Intake: Oral 240 Output: Urine 800 - Exam General: The patient is awake and alert, in no distress Eye: there is normal conjunctiva bilaterally. Neck: The neck is supple, there is no JVD. Cardiovascular: Normal S1-S2, no S3-S4, there is a loud systolic murmur in the aortic area Respiratory: Lungs clear to auscultation bilaterally Gastrointestinal: Abdomen is soft, nontender Musculoskeletal: There is no pedal edema. Neurological:. Speech is normal. Skin: Skin is warm and dry - Labs CBC & Chem 7: 11/05/20 09:15 11/05/20 09:15 Labs: Abnormal Lab Results - Last 24 Hours (Table) 11/04/20 11/04/20 11/05/20 Range/Units 09:54 12:45 09:15 WBC 20.8 H (3.8-10.6) k/uL Plt Count 548 H (150-450) k/uL Neutrophils # 17.8 H (1.3-7.7) k/uL Monocytes # 1.5 H (0-1.0) k/uL Sodium (137-145) mmol/L Chloride (98-107) mmol/L BUN (9-20) mg/dL Glucose (74-99) mg/dL Troponin I 0.059 H* (0.000-0.034) ng/mL Procalcitonin 0.10 H (0.02-0.09) ng/mL 11/05/20 Range/Units 09:15 WBC (3.8-10.6) k/uL Plt Count (150-450) k/uL Neutrophils # (1.3-7.7) k/uL Monocytes # (0-1.0) k/uL Sodium 132 L (137-145) mmol/L Chloride 95 L (98-107) mmol/L BUN 22 H (9-20) mg/dL Glucose 115 H (74-99) mg/dL Troponin I (0.000-0.034) ng/mL Procalcitonin (0.02-0.09) ng/mL Assessment and Plan Assessment: This is a 70-year-old male with past medical history noted below who presented to the emergency room with worsening shortness of breath and cough. Patient was evaluated in the ER and will be admitted to the hospital for further management of his medical problems noted below. 1. Acute systolic heart failure exacerbation, started on IV Lasix 40 mg twice daily. Echocardiogram showed EF of 40-45%. Patient is diuresing well. Continue daily weight and strict I's and O's. 2. Severe aortic stenosis with evidence of left atrial enlargement on 12-lead EKG and a loud systolic murmur. Cardiology consulted for further evaluation. Will need workup to see if he is a candidate for travel 3. Troponin elevation, most likely non-thrombotic troponin leak. 12-lead EKG showed no acute ischemic changes. Patient denies any chest pain. Repeat troponin stable. Continue telemetry monitoring. 4. Acute COPD exacerbation, mild. Patient received Solu-Medrol 125 mg IV 1 in the ER. Continue duo nebs every 6 hours. Avoid further steroids at this time as suspicion for heart failure is greater than COPD exacerbation at this point 5. Suspect left lung pneumonia, ruled out. Discontinue antibiotic. Pro- calcitonin only slightly elevated. COVID_19 PCR negative 6. Tobacco abuse: Counseled extensively to quit. Nicotine patch ordered. 7. Hyponatremia improving 8. DVT prophylaxis with subcu heparin Time with Patient: Greater than 30
--- NOTE | 2020-11-05 11:50 | P.PN ---
Subjective This is a pleasant 70-year-old male past medical history significant for hypertension, aortic stenosis and COPD. He does not follow regularly with a [employer] dean. He is seen and examined sitting up in bed in no acute distress. He states his breathing is improving however he still feels short of breath. He denies chest pain, dizziness or palpitations. Echocardiogram obtained reveals impaired LV systolic function with ejection fraction 40-45%, severe aortic stenosis with a mean gradient of 43 mmHg and severe pulmonary hypertension with an RVSP of 63 mmHg. Blood pressure 119/77 heart rate 88 afebrile maintaining oxygen saturation on nasal cannula. Laboratory data reviewed, WBC 20.8, hemoglobin 13.2, platelets 548, sodium 132, potassium 4.3 and creatinine 0.97. Currently maintained on IV antibiotics, clonidine 0.1 mg twice a day, Lasix 40 mg IV twice a day, lisinopril 20 mg daily and metoprolol 25 mg twice a day. 24 hour urine output is 800 mL's. GENERAL: Well-appearing, well-nourished and in no acute distress. NECK: Supple without JVD or thyromegaly. LUNGS: Breath sounds clear to auscultation bilaterally. Respiration equal and unlabored. No wheezes, rales or rhonchi. Diminished bilaterally. HEART: Regular rate and rhythm without murmurs, rubs or gallops. S1 and S2 heard. EXTREMITIES: Normal range of motion, no edema. No clubbing or cyanosis. Peripheral pulses intact. ASSESSMENT Acute systolic heart failure, likely secondary to valvular heart disease and worsened by uncontrolled hypertension Aortic stenosis, severe Hypertension, accelerated Pneumonia COPD PLAN Continue diuresis and aggressive blood pressure management. Explained in detail to the patient he will require further work-up in the form o f catheterization and likely valve surgery down the line. We will optimize his therapy currently and pursue this as an outpatient. Follow renal function and electrolytes in the morning. Document accurate intake and output along with daily weights. Nurse Practitioner note has been reviewed, I agree with a documented findings and plan of care. Patient was seen and examined. Objective - Vital Signs Vital signs: Vital Signs Temp 97.7 F 11/05/20 04:00 Pulse 92 11/05/20 08:17 Resp 16 11/05/20 04:00 BP 119/77 11/05/20 04:00 Pulse Ox 98 11/05/20 04:00 Intake & Output 11/04/20 11/05/20 11/05/20 18:59 06:59 18:59 Intake Total 240 Output Total 800 Balance -800 240 Weight 68.039 kg 62.5 kg Intake: Oral 240 Output: Urine 800 - Labs CBC & Chem 7: 11/05/20 09:15 11/05/20 09:15 Labs: Abnormal Lab Results - Last 24 Hours (Table) 11/04/20 11/04/20 11/05/20 Range/Units 09:54 12:45 09:15 WBC 20.8 H (3.8-10.6) k/uL Plt Count 548 H (150-450) k/uL Neutrophils # 17.8 H (1.3-7.7) k/uL Monocytes # 1.5 H (0-1.0) k/uL Sodium (137-145) mmol/L Chloride (98-107) mmol/L BUN (9-20) mg/dL Glucose (74-99) mg/dL Troponin I 0.059 H* (0.000-0.034) ng/mL Procalcitonin 0.10 H (0.02-0.09) ng/mL 11/05/20 Range/Units 09:15 WBC (3.8-10.6) k/uL Plt Count (150-450) k/uL Neutrophils # (1.3-7.7) k/uL Monocytes # (0-1.0) k/uL Sodium 132 L (137-145) mmol/L Chloride 95 L (98-107) mmol/L BUN 22 H (9-20) mg/dL Glucose 115 H (74-99) mg/dL Troponin I (0.000-0.034) ng/mL Procalcitonin (0.02-0.09) ng/mL
--- NOTE | 2020-11-05 13:29 | CDI ---
Documentation Clarification Form Date: 11/05/2020 01:18:57 PM From: Laura VillafanaBolivarAKASH, CCDS Admit Date: 11/04/2020 11:18:00 AM Patient Name: Gokul Cardona Visit Number: [id number] Discharge Date: ATTENTION: The Clinical Documentation Specialists (CDI) and [facility] Coding Staff appreciate your assistance in clarifying documentation. Please respond to the clarification below the line at the bottom and electronically sign. The CDI & [facility] Coding staff will review the response and follow-up if needed. Please note: Queries are made part of the Legal Health Record. If you have any questions, please contact the author of this message via ITS. Dr. Byron Quiñonez: Per the Cardiology Consult 11/04: The patient is supposed to be on Lisinopril but has not been taking it for at least six months. Impression: Accelerated Hypertension, untreated by patient's choice. History/Risk Factors: COPD, current smoker. CVA April 2017, Hypertension, Aortic Stenosis, Anxiety, Family history of CAD. Clinical Indicators: Presented to the ED on 11/04 with SOB via EMS. Admitted with COPD Exacerbation, Atypical Pneumonia and Acute on Chronic systolic CHF. 11/04 BP: 169/104 - 189/81 - 92/69 Treatment: Resumed Lisinopril, O2 2Lnc, INH Duoneb: Albuterol/Ipratropium, IV Solumedrol, IV Rocephin, IV Azithromycin, IV Lasix, po Zestril, po Catapres, po Lopressor, Heparin sq, po Aspirin In your professional opinion, can you please further clarify the diagnosis of accelerated hypertension: Hypertensive Urgency Hypertensive Emergency Other, please specify Unable to determine (Last Revision: February 2018) Hypertensive Urgency MTDD
[2020-11-05] MEDS: HEPARIN SODIUM,PORCINE 5,000 UNIT/ML 1 ML VIAL SQ SCH ×2 (15:48→21:03)
[2020-11-05] MEDS: ASPIRIN 81 MG PO SCH (15:49)
[2020-11-06] MEDS: IPRATROPIUM-ALBUTEROL 3 ML NEB INHALATION SCH ×4 (07:54→20:30)
[2020-11-06 08:41] LABS: Basophils % (A) 0 %; Eosinophils % (A) 0 %; HCT 38.3 % (39.0-53.0); HGB 12.4 gm/dL (13.0-17.5); Lymphocytes % (A) 7 %; MCH 28.3 pg (25.0-35.0); MCHC 32.4 g/dL (31.0-37.0); MCV 87.2 fL (80.0-100.0); Mean Platelet Volume 6.7; Monocytes # (A) 0.9 k/uL (0-1.0); Monocytes % (A) 6 %; Neutrophils # (A) 12.5 k/uL (1.3-7.7); Neutrophils % (A) 86 %; Platelet Count 481 k/uL (150-450); RBC 4.39 m/uL (4.30-5.90); RDW 13.3 % (11.5-15.5); WBC 14.6 k/uL (3.8-10.6)
[2020-11-06 08:48] LABS: African American GFR (CKD) >90 (>60 ml/min/1.73 sqM); Anion Gap 11 mmol/L; Blood Urea Nitrogen 21 mg/dL (9-20); Calcium 8.6 mg/dL (8.4-10.2); Carbon Dioxide 25 mmol/L (22-30); Chloride 94 mmol/L (98-107); Glucose 135 mg/dL (74-99); Non-African American GFR(CKD) 82 (>60 ml/min/1.73 sqM); Potassium 4.1 mmol/L (3.5-5.1); Sodium 130 mmol/L (137-145)
--- NOTE | 2020-11-06 09:15 | P.PN ---
Subjective Progress Note Date: 11/06/20 On today's evaluation of 11/06/2020, the patient is feeling better. Is on room air oxygen. He is less short of breath. He is being diuresis with IV Lasix. His cardiac rhythm is still sinus. No major edema in his lower extremities. No significant cough or sputum production. He was treated also with a combination of bronchodilators and steroids and diuretics. As mentioned earlier, he has cardiomyopathy with impaired LV function with an ejection fraction of 40-45%. He also has severe aortic stenosis. Cardiology is on the case for now. Objective - Vital Signs Vital signs: Vital Signs Temp 97.6 F 11/06/20 04:00 Pulse 101 H 11/06/20 08:02 Resp 16 11/06/20 08:02 BP 133/81 11/06/20 04:00 Pulse Ox 90 L 11/06/20 04:00 Intake & Output 11/05/20 11/06/20 11/06/20 18:59 06:59 18:59 Intake Total 720 Balance 720 Weight 62.7 kg Intake: Oral 720 Other: Voiding Method Urinal - Exam The patient appeared well nourished and normally developed. Vital signs as documented. Head exam is unremarkable. No scleral icterus or corneal arcus note d. Neck is without jugular venous distension, thyromegaly, or carotid bruits. Carotid upstrokes are brisk bilaterally. Lungs sounds are diminished in the patient's back in lung bases bilaterally.Cardiac exam reveals the PMI to be normally sized and situated. Rhythm is regular. First and second heart sounds normal. the patient is a systolic ejection murmur grade 3/6 consistent with aortic stenosis, rubs or gallops. Abdominal exam reveals normal bowel sounds, no masses, no organomegaly and no aortic enlargement. Extremities are nonedematous and both femoral and pedal pulses are normal.Examination of the skin revealed no evidence of significant rashes, suspicious appearing nevi or other concerning lesions.Neurologically, the patient is awake and alert and the patient does not have any focal neurological deficit. Cranial nerves are essentially intact.Examination of the skin revealed no evidence of significant rashes, suspicious appearing nevi or other concerning lesions.Neurologically, the patient is awake and alert and the patient does not have any focal neurological deficit. Cranial nerves are essentially intact. - Labs CBC & Chem 7: 11/06/20 07:53 11/06/20 07:53 Labs: Abnormal Lab Results - Last 24 Hours (Table) 11/05/20 11/05/20 11/06/20 Range/Units 09:15 09:15 07:53 WBC 20.8 H 14.6 H (3.8-10.6) k/uL Hgb 12.4 L (13.0-17.5) gm/dL Hct 38.3 L (39.0-53.0) % Plt Count 548 H 481 H (150-450) k/uL Neutrophils # 17.8 H 12.5 H (1.3-7.7) k/uL Monocytes # 1.5 H (0-1.0) k/uL Sodium 132 L (137-145) mmol/L Chloride 95 L (98-107) mmol/L BUN 22 H (9-20) mg/dL Glucose 115 H (74-99) mg/dL 11/06/20 Range/Units 07:53 WBC (3.8-10.6) k/uL Hgb (13.0-17.5) gm/dL Hct (39.0-53.0) % Plt Count (150-450) k/uL Neutrophils # (1.3-7.7) k/uL Monocytes # (0-1.0) k/uL Sodium 130 L (137-145) mmol/L Chloride 94 L (98-107) mmol/L BUN 21 H (9-20) mg/dL Glucose 135 H (74-99) mg/dL Microbiology - Last 24 Hours (Table) 11/04/20 11:14 Blood Culture - Preliminary Blood No Growth after 24 hours Assessment and Plan Plan: 1 acute shortness of breath likely on the basis of decompensated heart failure and valvular heart disease. The patient has interval drop in the patient's left ventricular ejection fraction which is on 40% and the same time the patient was found to have severe aortic stenosis.. Quit taking the medication and the patient had an acute hypertensive reaction which probably contributed to his heart failure. 2 small bilateral pleural effusion secondary to above 3 interstitial pulmonary edema secondary to above 4 severe aortic stenosis with secondary pulmonary hypertension and impaired LV function 5 COPD 6 History of smoking 7 history of CVA 8 skin cancer 9. Right bundle branch block pattern with frequent PACs plan Medically clinically improving Continued IV Lasix The pro-calcitonin level is LOW AND INFECTIONS OUTPUT MENTIONED The white cell count is improved Continue the nebulizer treatments Smoking cessation PFT on outpatient basis Cardiac catheterization later stage to assess coronary anatomy and evaluate this patient for aortic stenosis interventions/treatment
[2020-11-06] MEDS: ASPIRIN 81 MG PO SCH (09:47)
[2020-11-06] MEDS: HEPARIN SODIUM,PORCINE 5,000 UNIT/ML 1 ML VIAL SQ SCH (09:47)
[2020-11-06] MEDS: METOPROLOL TARTRATE 25 MG TAB PO SCH (09:47)
[2020-11-06] MEDS: FUROSEMIDE 10 MG/ML 4 ML VIAL IV SCH ×2 (09:48→16:27)
[2020-11-06] MEDS: lisinopriL 20 MG TAB PO SCH (09:48)
[2020-11-06] MEDS: NICOTINE 7MG/24HR PATCH TRANSDERM SCH ×2 (09:53→11:58)
--- NOTE | 2020-11-06 10:26 | P.PN ---
Subjective Progress Note Date: 11/06/20 Patient is still complaining of shortness of breath. He is not feeling well enough to go home. He is diuresing well. Objective - Vital Signs Vital signs: Vital Signs Temp 97.6 F 11/06/20 04:00 Pulse 101 H 11/06/20 08:02 Resp 16 11/06/20 08:02 BP 138/71 11/06/20 08:00 Pulse Ox 93 L 11/06/20 08:00 Intake & Output 11/05/20 11/06/20 11/06/20 18:59 06:59 18:59 Intake Total 720 Balance 720 Weight 62.7 kg Intake: Oral 720 Other: Voiding Method Urinal - Exam General: The patient is awake and alert, in no distress Eye: there is normal conjunctiva bilaterally. Neck: The neck is supple, there is no JVD. Cardiovascular: Normal S1-S2, no S3-S4, there is a loud systolic murmur in the aortic area Respiratory: Lungs clear to auscultation bilaterally Gastrointestinal: Abdomen is soft, nontender Musculoskeletal: There is no pedal edema. Neurological:. Speech is normal. Skin: Skin is warm and dry - Labs CBC & Chem 7: 11/06/20 07:53 11/06/20 07:53 Labs: Abnormal Lab Results - Last 24 Hours (Table) 11/06/20 11/06/20 Range/Units 07:53 07:53 WBC 14.6 H (3.8-10.6) k/uL Hgb 12.4 L (13.0-17.5) gm/dL Hct 38.3 L (39.0-53.0) % Plt Count 481 H (150-450) k/uL Neutrophils # 12.5 H (1.3-7.7) k/uL Sodium 130 L (137-145) mmol/L Chloride 94 L (98-107) mmol/L BUN 21 H (9-20) mg/dL Glucose 135 H (74-99) mg/dL Microbiology - Last 24 Hours (Table) 11/04/20 11:14 Blood Culture - Preliminary Blood No Growth after 24 hours Assessment and Plan Assessment: This is a 70-year-old male with past medical history noted below who presented to the emergency room with worsening shortness of breath and cough. Patient was evaluated in the ER and will be admitted to the hospital for further management of his medical problems noted below. 1. Acute systolic heart failure exacerbation, started on IV Lasix 40 mg twice daily. Echocardiogram showed EF of 40-45%. Patient is diuresing well. Continue daily weight and strict I's and O's. Follow-up BMP ordered for tomorrow 2. Severe aortic stenosis with evidence of left atrial enlargement on 12-lead EKG and a loud systolic murmur. Cardiology consulted for further evaluation. Will need TAVR workup including heart catheterization as an outpatient 3. Troponin elevation, most likely non-thrombotic troponin leak. 12-lead EKG showed no acute ischemic changes. Patient denies any chest pain. Repeat troponin stable. Continue telemetry monitoring. 4. Essential hypertension: Blood pressure not well controlled on presentation secondary to noncompliance. Restarted on lisinopril 20 mg daily and metoprolol added by cardiology. Initially clonidine added but then discontinued secondary to low blood pressure 5. Acute COPD exacerbation, mild. Patient received Solu-Medrol 125 mg IV 1 in the ER. Continue duo nebs every 6 hours. Avoid further steroids at this time as suspicion for heart failure is greater than COPD exacerbation at this point 5. Suspect left lung pneumonia, ruled out. Discontinue antibiotic. Pro- calcitonin only slightly elevated. COVID_19 PCR negative 7. Tobacco abuse: Counseled extensively to quit. Nicotine patch ordered. 8. Hyponatremia improving 9. DVT prophylaxis with subcu heparin Continue diuresis. Recheck electrolytes in the morning. Anticipate discharge home tomorrow if improving.
[2020-11-06] MEDS ORDERED: METOPROLOL TARTRATE 25 MG TAB PO STA (11:50)
[2020-11-06] MEDS ORDERED: HEPARIN SODIUM,PORCINE 5,000 UNIT/ML 1 ML VIAL IV ONE (11:53)
[2020-11-06 12:39] LABS: INR 1.1 (<1.2); Partial Thromboplastin Time 23.7 sec (22.0-30.0)
[2020-11-06] MEDS: HEPARIN SOD,PORK IN 0.45% NACL 25,000 UNIT in 0.45% NACL 1 250ML.BAG IV SCH (13:30)
--- NOTE | 2020-11-06 14:27 | P.PN ---
Subjective This is a pleasant 70-year-old male past medical history significant for hypertension, aortic stenosis and COPD. 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 He is seen and examined sitting up in bed in no acute distress. He states his breathing is improving however he still feels short of breath. He denies chest pain, dizziness or palpitations. Echocardiogram obtained reveals impaired LV systolic function with ejection fraction 40-45%, severe aortic stenosis with a mean gradient of 43 mmHg and severe pulmonary hypertension with an RVSP of 63 mmHg. Blood pressure 119/77 heart rate 88 afebrile maintaining oxygen saturation on nasal cannula. Laboratory data reviewed, WBC 20.8, hemoglobin 13.2, platelets 548, sodium 132, potassium 4.3 and creatinine 0.97. Currently maintained on IV antibiotics, clonidine 0.1 mg twice a day, Lasix 40 mg IV twice a day, lisinopril 20 mg daily and metoprolol 25 mg twice a day. 24 hour urine output is 800 mL's. 11/06/2020 Pt is seen and examined sitting up in bed in no acute distress. He states his breathing seems to have gotten worse again last night. He denies cough, fever/chills or chest pain. Blood pressure 142/84 heart rate 73. Laboratory data reviewed, WBC 14.6, hemoglobin 12.4, platelets 481, sodium 130, potassium 4.1, creatinine 0.96 and TSH 2.69. On auscultation his rates are irregular. Review of telemetry tracings indicate significant amount of artifact but irregularity is there, possible multifocal atrial tachycardia. We will obtain an EKG. Inaccurate documentation of output for the previous 24 hours. GENERAL: Well-appearing, well-nourished and in no acute distress. NECK: Supple without JVD or thyromegaly. LUNGS: Breath sounds clear to auscultation bilaterally. Respiration equal and unlabored. No wheezes, rales or rhonchi. Diminished bilaterally. HEART: Irregular rate and rhythm with significant 4/6 systolic ejection murmur at all listening points, no rubs or gallops. S1 and S2 heard. EXTREMITIES: Normal range of motion, no edema. No clubbing or cyanosis. Peripheral pulses intact. ASSESSMENT Acute systolic heart failure, likely secondary to valvular heart disease and worsened by uncontrolled hypertension Aortic stenosis, severe Hypertension, accelerated. Improved. Pneumonia COPD Chronic nicotine dependence PLAN Obtain EKG. Initiate heparin infusion for thromboembolic protection for underlying atrial fibrillation. Increase lasix to TID and lopressor to 50 mg BID for rate control. We may consider catheterization on Wednesday if his respiratory status improves. Follow renal function and electrolytes in the morning. Further recommendations to follow based on clinical course. Nurse Practitioner note has been reviewed, I agree with a documented findings and plan of care. Patient was seen and examined. Objective - Vital Signs Vital signs: Vital Signs Temp 97.6 F 11/06/20 04:00 Pulse 73 11/06/20 12:04 Resp 16 11/06/20 12:04 BP 142/84 11/06/20 12:00 Pulse Ox 93 L 11/06/20 12:00 Intake & Output 11/05/20 11/06/20 11/06/20 18:59 06:59 18:59 Intake Total 720 Balance 720 Weight 62.7 kg Intake: Oral 720 Other: Voiding Method Urinal Urinal - Labs CBC & Chem 7: 11/06/20 07:53 11/06/20 07:53 Labs: Abnormal Lab Results - Last 24 Hours (Table) 11/06/20 11/06/20 Range/Units 07:53 07:53 WBC 14.6 H (3.8-10.6) k/uL Hgb 12.4 L (13.0-17.5) gm/dL Hct 38.3 L (39.0-53.0) % Plt Count 481 H (150-450) k/uL Neutrophils # 12.5 H (1.3-7.7) k/uL Sodium 130 L (137-145) mmol/L Chloride 94 L (98-107) mmol/L BUN 21 H (9-20) mg/dL Glucose 135 H (74-99) mg/dL Microbiology - Last 24 Hours (Table) 11/04/20 11:14 Blood Culture - Preliminary Blood No Growth after 48 hours
[2020-11-06] MEDS: METOPROLOL TARTRATE 50 MG TAB PO SCH (20:58)
[2020-11-06] MEDS: HEPARIN SODIUM,PORCINE 5,000 UNIT/ML 1 ML VIAL IV PRN (20:58)
[2020-11-07] MEDS: FUROSEMIDE 10 MG/ML 4 ML VIAL IV SCH ×4 (00:27→21:26)
[2020-11-07 02:53] LABS: Basophils % (A) 0 %; Eosinophils % (A) 0 %; HCT 37.3 % (39.0-53.0); HGB 12.2 gm/dL (13.0-17.5); Lymphocytes # (A) 1.4 k/uL (1.0-4.8); Lymphocytes % (A) 9 %; MCH 27.7 pg (25.0-35.0); MCHC 32.6 g/dL (31.0-37.0); Mean Platelet Volume 6.5; Monocytes # (A) 1.2 k/uL (0-1.0); Monocytes % (A) 8 %; Neutrophils # (A) 11.6 k/uL (1.3-7.7); Neutrophils % (A) 80 %; Platelet Count 480 k/uL (150-450); RBC 4.39 m/uL (4.30-5.90); RDW 13.2 % (11.5-15.5); WBC 14.6 k/uL (3.8-10.6)
[2020-11-07 03:11] LABS: African American GFR (CKD) >90 (>60 ml/min/1.73 sqM); Anion Gap 8 mmol/L; Blood Urea Nitrogen 21 mg/dL (9-20); Calcium 8.3 mg/dL (8.4-10.2); Carbon Dioxide 30 mmol/L (22-30); Chloride 93 mmol/L (98-107); Glucose 104 mg/dL (74-99); Magnesium 1.7 mg/dL (1.6-2.3); Non-African American GFR(CKD) 86 (>60 ml/min/1.73 sqM); Potassium 3.5 mmol/L (3.5-5.1); Sodium 131 mmol/L (137-145)
[2020-11-07] MEDS: HEPARIN SODIUM,PORCINE 5,000 UNIT/ML 1 ML VIAL IV PRN ×2 (04:11→18:36)
[2020-11-07] MEDS ORDERED: POTASSIUM CHLORIDE ER 20 MEQ TAB.ER PO STA (04:53)
[2020-11-07] MEDS ORDERED: MAGNESIUM SULFATE-D5W PMX 1 GM in DEXTROSE/WATER 1 100ML.BAG IVPB ONE (05:00)
[2020-11-07] MEDS: IPRATROPIUM-ALBUTEROL 3 ML NEB INHALATION SCH ×4 (08:29→21:10)
[2020-11-07] MEDS: METOPROLOL TARTRATE 50 MG TAB PO SCH ×2 (08:32→21:26)
[2020-11-07] MEDS: lisinopriL 20 MG TAB PO SCH (08:32)
[2020-11-07] MEDS: ASPIRIN 81 MG PO SCH (08:32)
[2020-11-07] MEDS: NICOTINE 7MG/24HR PATCH TRANSDERM SCH (08:32)
[2020-11-07 08:43] LABS: Magnesium 2.2 mg/dL (1.6-2.3)
--- NOTE | 2020-11-07 09:47 | P.PN ---
Subjective Progress Note Date: 11/07/20 Today's evaluation of 11/07/2020, the patient is more short of breath and struggling with his breathing. We noticed that the patient was having an irregular rhythm and further investigation confirmed the presence of multifocal atrial tachycardia versus atrial fibrillation. The patient was again evaluated by cardiology. His metoprolol dose was increased. He was placed on a higher dose of Lasix. On today's evaluation is on 2 L of oxygen by nasal cannula. On room air oxygen and his pulses are 90%. Renal function is stable. There are plans to do a cardiac catheterization this patient on Wednesday. He is on Lasix 40 mg IV push every 8 hours. He is on lisinopril 20 mg by mouth daily. He is on metoprolol 50 mg twice a day. Most recent BP is 131/90. Objective - Vital Signs Vital signs: Vital Signs Temp 97.8 F 11/06/20 20:00 Pulse 80 11/07/20 04:00 Resp 18 11/07/20 04:00 BP 131/69 11/07/20 04:00 Pulse Ox 90 L 11/07/20 04:00 Intake & Output 11/06/20 11/07/20 11/07/20 18:59 06:59 18:59 Intake Total 240 124.146 237 Balance 240 124.146 237 Weight 60.7 kg Intake: Intake, IV Titration 124.146 Amount Heparin Sod,Pork in 0.45% 124.146 NaCl 25,000 unit In 0.45 % NaCl 1 250ml.bag @ 12 UNITS/KG/HR 7.524 mls/hr IV .Q24H [facility] Rx#: [id number] Oral 240 237 Other: Voiding Method Urinal Urinal - Labs CBC & Chem 7: 11/07/20 02:41 11/07/20 07:52 Labs: Abnormal Lab Results - Last 24 Hours (Table) 11/07/20 11/07/20 Range/Units 02:41 02:41 WBC 14.6 H (3.8-10.6) k/uL Hgb 12.2 L (13.0-17.5) gm/dL Hct 37.3 L (39.0-53.0) % Plt Count 480 H (150-450) k/uL Neutrophils # 11.6 H (1.3-7.7) k/uL Monocytes # 1.2 H (0-1.0) k/uL Sodium 131 L (137-145) mmol/L Chloride 93 L (98-107) mmol/L BUN 21 H (9-20) mg/dL Glucose 104 H (74-99) mg/dL Calcium 8.3 L (8.4-10.2) mg/dL Microbiology - Last 24 Hours (Table) 11/04/20 11:14 Blood Culture - Preliminary Blood No Growth after 48 hours Assessment and Plan Plan: 1 acute shortness of breath likely on the basis of decompensated heart failure and valvular heart disease. The patient has interval drop in the patient's left ventricular ejection fraction which is on 40% and the same time the patient was found to have severe aortic stenosis.. Quit taking the medication and the patient had an acute hypertensive reaction which probably contributed to his heart failure. 2 small bilateral pleural effusion secondary to above 3 interstitial pulmonary edema secondary to above 4 severe aortic stenosis with secondary pulmonary hypertension and impaired LV function 5 COPD 6 History of smoking 7 history of CVA 8 skin cancer 9. Right bundle branch block pattern with frequent PACs 10 irregular cardiac rhythm. Possible multifocal atrial tachycardia versus Atrial fibrillation. plan continue IV heparin for now. Continued IV Lasix the patient is taking Lasix 40 mg every 8 hours. The pro-calcitonin level is Is low and infection is doubtful The white cell count is improved Continue the nebulizer treatments Cardiac catheterization possibly by Wednesday Continue metoprolol 50 mg twice a day lisinopril 20 mg by mouth daily economics lecturer on the case.
[2020-11-07] MEDS ORDERED: ALPRAZolam 0.5 MG TAB PO PRN (13:37)
[2020-11-07] MEDS ORDERED: NITROGLYCERIN SL TABS 0.4 MG TAB SUBLINGUAL PRN (13:37)
[2020-11-07] MEDS ORDERED: ALPRAZolam 0.25 MG TAB PO PRN (13:37)
--- NOTE | 2020-11-07 13:46 | P.PN ---
Subjective This is a pleasant 70-year-old male past medical history significant for hypertension, aortic stenosis and COPD. 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 He is seen and examined sitting up in bed in no acute distress. He states his breathing is improving however he still feels short of breath. He denies chest pain, dizziness or palpitations. Echocardiogram obtained reveals impaired LV systolic function with ejection fraction 40-45%, severe aortic stenosis with a mean gradient of 43 mmHg and severe pulmonary hypertension with an RVSP of 63 mmHg. Blood pressure 119/77 heart rate 88 afebrile maintaining oxygen saturation on nasal cannula. Laboratory data reviewed, WBC 20.8, hemoglobin 13.2, platelets 548, sodium 132, potassium 4.3 and creatinine 0.97. Currently maintained on IV antibiotics, clonidine 0.1 mg twice a day, Lasix 40 mg IV twice a day, lisinopril 20 mg daily and metoprolol 25 mg twice a day. 24 hour urine output is 800 mL's. 11/07/2020 Pt is seen and examined sitting up in bed no acute distress. He states his breathing seems to be worsening and this morning he had an episode of dizziness. Blood pressure 132/109 heart rate 68 afebrile oxygen saturation on room air 89%, oxygen applied. Laboratory data reviewed, WBC 14.6, hgb 12.2, plt 480, sodium 131, potassium 4.0, creatinine 0.91, magnesium 2.2 and NTproBNP 41273. Currently maintained on aspirin 81 mg daily, heparin infusion, lisinopril 20 mg daily, lopressor 50 mg BID. EKG reveals sinus tachycardia with PAC's. Telemetry tracings indicate multi-focal atrial tachycardia. No a-fib noted. GENERAL: Well-appearing, well-nourished and in no acute distress. NECK: Supple without JVD or thyromegaly. LUNGS: Breath sounds clear to auscultation bilaterally. Respiration equal and unlabored. No wheezes, rales or rhonchi. Diminished bilaterally. HEART: Irregular rate and rhythm with significant 4/6 systolic ejection murmur at all listening points, no rubs or gallops. S1 and S2 heard. EXTREMITIES: Normal range of motion, no edema. No clubbing or cyanosis. Peripheral pulses intact. ASSESSMENT Acute systolic heart failure, likely secondary to valvular heart disease and worsened by uncontrolled hypertension Aortic stenosis, severe Hypertension, accelerated. Improved. Non-sustained monomorphic ventricular tachycardia Pneumonia COPD Chronic nicotine dependence PLAN Given his worsening shortness of breath despite medical therapy we will pursue inpatient catheterization and ALEKSANDRA. I have discussed the risks, benefits and alternative therapies for the above-mentioned procedure and for both sedation/analgesia as well as necessary blood product administration, if indicated, as they pertain to this patient. The patient has indicated understanding and acceptance of the risks and procedures discussed. Questions have been answered appropriately. He wants to think about his options for the rest of today and make a decision in the morning regarding moving forward with above stated procedures. He will be NPO after midnight tonight in hopes he agrees to the procedures. Further recommendations to follow based on clinical course. Nurse Practitioner note has been reviewed, I agree with a documented findings and plan of care. Patient was seen and examined. Objective - Vital Signs Vital signs: Vital Signs Temp 97.1 F L 11/07/20 08:00 Pulse 60 11/07/20 08:00 Resp 18 11/07/20 08:00 BP 132/109 11/07/20 08:00 Pulse Ox 89 L 11/07/20 08:00 Intake & Output 11/06/20 11/07/20 11/07/20 18:59 06:59 18:59 Intake Total 240 124.146 557 Output Total 250 Balance 240 124.146 307 Weight 60.7 kg Intake: Intake, IV Titration 124.146 Amount Heparin Sod,Pork in 0.45% 124.146 NaCl 25,000 unit In 0.45 % NaCl 1 250ml.bag @ 12 UNITS/KG/HR 7.524 mls/hr IV .Q24H [facility] Rx#: [id number] Oral 240 557 Output: Urine 250 Other: Voiding Method Urinal Urinal # Voids 1 # Bowel Movements 1 - Labs CBC & Chem 7: 11/07/20 02:41 11/07/20 07:52 Labs: Abnormal Lab Results - Last 24 Hours (Table) 11/07/20 11/07/20 Range/Units 02:41 02:41 WBC 14.6 H (3.8-10.6) k/uL Hgb 12.2 L (13.0-17.5) gm/dL Hct 37.3 L (39.0-53.0) % Plt Count 480 H (150-450) k/uL Neutrophils # 11.6 H (1.3-7.7) k/uL Monocytes # 1.2 H (0-1.0) k/uL Sodium 131 L (137-145) mmol/L Chloride 93 L (98-107) mmol/L BUN 21 H (9-20) mg/dL Glucose 104 H (74-99) mg/dL Calcium 8.3 L (8.4-10.2) mg/dL Microbiology - Last 24 Hours (Table) 11/04/20 11:14 Blood Culture - Preliminary Blood No Growth after 72 hours
--- NOTE | 2020-11-07 18:03 | P.PN ---
Subjective Progress Note Date: 11/07/20 Objective - Vital Signs Vital signs: Vital Signs Temp 97.1 F L 11/07/20 08:00 Pulse 108 H 11/07/20 16:00 Resp 18 11/07/20 16:00 BP 127/78 11/07/20 16:00 Pulse Ox 93 L 11/07/20 16:00 Intake & Output 11/06/20 11/07/20 11/07/20 18:59 06:59 18:59 Intake Total 240 124.146 794 Output Total 450 Balance 240 124.146 344 Weight 60.7 kg Intake: Intake, IV Titration 124.146 Amount Heparin Sod,Pork in 0.45% 124.146 NaCl 25,000 unit In 0.45 % NaCl 1 250ml.bag @ 12 UNITS/KG/HR 7.524 mls/hr IV .Q24H [facility] Rx#: [id number] Oral 240 794 Output: Urine 450 Other: Voiding Method Urinal Urinal # Voids 1 # Bowel Movements 1 - Constitutional General appearance: Present: no acute distress - Respiratory Respiratory: bilateral: diminished - Cardiovascular Rhythm: irregularly irregular - Gastrointestinal General gastrointestinal: Present: normal bowel sounds - Integumentary Integumentary: Present: normal - Labs CBC & Chem 7: 11/07/20 02:41 11/07/20 07:52 Labs: Abnormal Lab Results - Last 24 Hours (Table) 11/07/20 11/07/20 Range/Units 02:41 02:41 WBC 14.6 H (3.8-10.6) k/uL Hgb 12.2 L (13.0-17.5) gm/dL Hct 37.3 L (39.0-53.0) % Plt Count 480 H (150-450) k/uL Neutrophils # 11.6 H (1.3-7.7) k/uL Monocytes # 1.2 H (0-1.0) k/uL Sodium 131 L (137-145) mmol/L Chloride 93 L (98-107) mmol/L BUN 21 H (9-20) mg/dL Glucose 104 H (74-99) mg/dL Calcium 8.3 L (8.4-10.2) mg/dL Microbiology - Last 24 Hours (Table) 11/04/20 11:14 Blood Culture - Preliminary Blood No Growth after 72 hours Assessment and Plan (1) COPD with exacerbation Narrative/Plan: The patient received IV Solu-Medrol in the emergency room continue nebulizer treatments Current Visit: Yes Status: Acute Code(s): J44.1 - CHRONIC OBSTRUCTIVE PULMONARY DISEASE W (ACUTE) EXACERBATION SNOMED Code(s): 728952551 (2) Acute CHF Narrative/Plan: Secondary to systolic heart failure on IV Lasix 40-45% daily states he feels less short of breath he's sitting up in bed Current Visit: Yes Status: Acute Code(s): I50.9 - HEART FAILURE, UNSPECIFIED SNOMED Code(s): 82900315 (3) Atypical pneumonia Narrative/Plan: Pneumonia was ruled out antibiotics were discontinued Current Visit: Yes Status: Acute Code(s): J18.9 - PNEUMONIA, UNSPECIFIED ORGANISM SNOMED Code(s): 494673269 (4) Troponin level elevated Narrative/Plan: Consults secondary to nonsteroidal thrombotic leak EKG showed no ischemic change patient denied any chest pain and his repeat troponins were stable Current Visit: Yes Status: Acute Code(s): R77.8 - OTHER SPECIFIED ABNORMALITIES OF PLASMA PROTEINS SNOMED Code(s): 604034685
[2020-11-07] MEDS: HEPARIN SOD,PORK IN 0.45% NACL 25,000 UNIT in 0.45% NACL 1 250ML.BAG IV SCH (21:22)
[2020-11-08 03:38] VITALS: TEMP 98.2
[2020-11-08] MEDS ORDERED: ATORVASTATIN 80 MG TAB PO ONE (06:00)
[2020-11-08] MEDS ORDERED: ASPIRIN 325 MG TAB PO ONE (06:00)
[2020-11-08] MEDS: ASPIRIN 81 MG PO SCH (08:29)
[2020-11-08] MEDS: FUROSEMIDE 10 MG/ML 4 ML VIAL IV SCH (08:29)
[2020-11-08] MEDS: METOPROLOL TARTRATE 50 MG TAB PO SCH (08:29)
[2020-11-08] MEDS: lisinopriL 20 MG TAB PO SCH (08:29)
[2020-11-08] MEDS: NICOTINE 7MG/24HR PATCH TRANSDERM SCH (08:30)
[2020-11-08] MEDS: IPRATROPIUM-ALBUTEROL 3 ML NEB INHALATION SCH ×3 (08:35→16:33)
[2020-11-08 10:00] LABS: Basophils % (A) 0 %; Eosinophils % (A) 0 %; HCT 41.3 % (39.0-53.0); HGB 12.9 gm/dL (13.0-17.5); Hypochromasia Slight; Lymphocytes # (A) 1.2 k/uL (1.0-4.8); Lymphocytes % (A) 10 %; MCH 27.2 pg (25.0-35.0); MCHC 31.2 g/dL (31.0-37.0); MCV 87.2 fL (80.0-100.0); Mean Platelet Volume 6.5; Monocytes # (A) 0.9 k/uL (0-1.0); Monocytes % (A) 8 %; Neutrophils # (A) 9.2 k/uL (1.3-7.7); Neutrophils % (A) 80 %; Platelet Count 533 k/uL (150-450); RBC 4.73 m/uL (4.30-5.90); RDW 13.4 % (11.5-15.5); WBC 11.5 k/uL (3.8-10.6)
[2020-11-08 10:18] LABS: African American GFR (CKD) >90 (>60 ml/min/1.73 sqM); Anion Gap 5 mmol/L; Blood Urea Nitrogen 25 mg/dL (9-20); Calcium 8.5 mg/dL (8.4-10.2); Carbon Dioxide 33 mmol/L (22-30); Chloride 95 mmol/L (98-107); Glucose 104 mg/dL (74-99); Non-African American GFR(CKD) 84 (>60 ml/min/1.73 sqM); Potassium 3.8 mmol/L (3.5-5.1); Sodium 133 mmol/L (137-145)
--- NOTE | 2020-11-08 12:00 | P.PN ---
Subjective This is a pleasant 70-year-old male past medical history significant for hypertension, aortic stenosis and COPD. 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 He is seen and examined sitting up in bed in no acute distress. The patient was scheduled to undergo catherization and ALEKSANDRA today, however he is declining these procedures. The severity of his illness was discussed at length and he still refuses. Blood pressure today 122/76 heart rate 66. Laboratory data review WBC 11.5, hemoglobin 12.9, platelets 533, sodium 133, potassium 3.8 creatinine 0.93. GENERAL: Well-appearing, well-nourished and in no acute distress. NECK: Supple without JVD or thyromegaly. LUNGS: Breath sounds clear to auscultation bilaterally. Respiration equal and unlabored. No wheezes, rales or rhonchi. Diminished bilaterally. HEART: Irregular rate and rhythm with significant 4/6 systolic ejection murmur at all listening points, no rubs or gallops. S1 and S2 heard. EXTREMITIES: Normal range of motion, no edema. No clubbing or cyanosis. Peripheral pulses intact. ASSESSMENT Acute systolic heart failure, likely secondary to valvular heart disease and worsened by uncontrolled hypertension. Ejection fraction 40-45%. Aortic stenosis, severe Hypertension, accelerated. Improved. Non-sustained monomorphic ventricular tachycardia Pneumonia COPD Chronic nicotine dependence PLAN Transition to oral diuretics. Increase diuretics to 50 mg TID. Follow up with Dr. Quiñonez in the office in 1-2 weeks. Nurse Practitioner note has been reviewed, I agree with a documented findings and plan of care. Patient was seen and examined. Objective - Vital Signs Vital signs: Vital Signs Temp 98.2 F 11/08/20 03:37 Pulse 66 11/08/20 03:37 Resp 20 11/08/20 03:37 BP 122/76 11/08/20 03:37 Pulse Ox 93 L 11/08/20 08:34 Intake & Output 11/07/20 11/08/20 11/08/20 18:59 06:59 18:59 Intake Total 919.854 240 477 Output Total 450 Balance 469.854 240 477 Weight 60.5 kg Intake: Intake, IV Titration 125.854 Amount Heparin Sod,Pork in 0.45% 125.854 NaCl 25,000 unit In 0.45 % NaCl 1 250ml.bag @ 12 UNITS/KG/HR 7.524 mls/hr IV .Q24H [facility] Rx#: [id number] Oral 794 240 477 Output: Urine 450 Other: Voiding Method Urinal # Voids 1 # Bowel Movements 1 - Labs CBC & Chem 7: 11/08/20 09:40 11/08/20 09:40 Labs: Abnormal Lab Results - Last 24 Hours (Table) 11/07/20 11/08/20 11/08/20 Range/Units 22:19 09:40 09:40 WBC 11.5 H (3.8-10.6) k/uL Hgb 12.9 L (13.0-17.5) gm/dL Plt Count 533 H (150-450) k/uL Neutrophils # 9.2 H (1.3-7.7) k/uL APTT 32.0 H (22.0-30.0) sec Sodium 133 L (137-145) mmol/L Chloride 95 L (98-107) mmol/L Carbon Dioxide 33 H (22-30) mmol/L BUN 25 H (9-20) mg/dL Glucose 104 H (74-99) mg/dL Microbiology - Last 24 Hours (Table) 11/04/20 11:14 Blood Culture - Preliminary Blood No Growth after 72 hours
--- NOTE | 2020-11-08 14:45 | P.DS ---
Providers Date of admission: 11/04/20 11:18 Expected date of discharge: 11/08/20 Attending physician: Neisha Bradley Consults: 11/04/20 11:02 Consult Physician Urgent Consulting Provider: Rahel Montano Consult Reason/Comments: COPD Do you want consulting provider notified?: Yes Consult Physician Urgent Consulting Provider: Jensen Owen Consult Reason/Comments: CHF Do you want consulting provider notified?: Yes Primary care physician: Stated None - Discharge Diagnosis(es) (1) Acute CHF EF 40% acute on chronic systolic heart failure, home with oral diuretics Current Visit: Yes Status: Acute (2) Troponin level elevated Likely secondary to strain Current Visit: Yes Status: Acute (3) COPD with exacerbation Active wheezing was initially given antibiotics for possible pneumonia however this was ruled out he was counseled for the need for tobacco cessation Current Visit: Yes Status: Resolved Hospital Course: The patient is 70-year-old male with a history of hypertension, COPD, CHF who was not taking his medications. The patient is a smoker and presented to the hospital for shortness of breath. Patient was seen by pulmonology and cardiology during his hospital stay. The etiology of his shortness of breath was more likely secondary to CHF exacerbation and valvular heart disease. The patient had a ALEKSANDRA and catheterization study scheduled and recommended however patient states he wants to have this done as an outpatient. The patient was given prescriptions for Lasix, metoprolol, aspirin and he will follow-up with cardiology and a PCP at discharge. He was seen by me today he was comfortable not requiring any supplemental oxygen not complaining of any chest pain. The patient is currently stable for discharge. Time spent 32 minutes Patient Condition at Discharge: Poor Plan - Discharge Summary New Discharge Prescriptions: New Metoprolol Tartrate [Lopressor] 50 mg PO TID 30 Days #90 tab Aspirin 81 mg PO DAILY 30 Days #30 chew Furosemide [Lasix] 60 mg PO DAILY 30 Days #30 tab Furosemide [Lasix] 40 mg PO 1600 30 Days #30 tab lisinopriL [Zestril] 20 mg PO DAILY 30 Days #30 tab Continue Furosemide [Lasix] 40 mg PO DAILY 30 Days #30 tab Metoprolol Tartrate [Lopressor] 50 mg PO TID 30 Days #90 tab Changed Aspirin [Adult Low Dose Aspirin EC] 81 mg PO DAILY 30 Days #30 tab Discontinued lisinopriL 20 mg PO DAILY Discharge Medication List Aspirin 81 mg PO DAILY 30 Days #30 chew 11/08/20 [Rx] Aspirin [Adult Low Dose Aspirin EC] 81 mg PO DAILY 30 Days #30 tab 11/08/20 [Rx] Furosemide [Lasix] 40 mg PO 1600 30 Days #30 tab 11/08/20 [Rx] Furosemide [Lasix] 40 mg PO DAILY 30 Days #30 tab 11/08/20 [Rx] Furosemide [Lasix] 60 mg PO DAILY 30 Days #30 tab 11/08/20 [Rx] Metoprolol Tartrate [Lopressor] 50 mg PO TID 30 Days #90 tab 11/08/20 [Rx] Metoprolol Tartrate [Lopressor] 50 mg PO TID 30 Days #90 tab 11/08/20 [Rx] lisinopriL [Zestril] 20 mg PO DAILY 30 Days #30 tab 11/08/20 [Rx] Follow up Appointment(s)/Referral(s): Chaz Bennett MD [REFERRING] - 11/12/20 11:00 am Byron Quiñonez MD [STAFF PHYSICIAN] - 11/18/20 2:30 am
[2020-11-08] MEDS ORDERED: METOPROLOL TARTRATE 50 MG TAB PO SCH (16:00)
[2020-11-08] MEDS ORDERED: FUROSEMIDE 40 MG TAB PO SCH (16:00)
[2020-11-08 16:01] VITALS: BP 127/91; PULSE 105; RESP 18
--- NOTE | 2020-11-08 17:05 | P.PN ---
Subjective Progress Note Date: 11/08/20 11/08/2020, the patient is resting comfortably in bed. The patient is reporting that he is fatigued. He was supposed undergo a ALEKSANDRA regarding his aortic stenosis and the patient also has severe aortic stenosis, severe pulmonary hypertension with a PA pressure of 63 mmHg. She was supposed undergo a cardiac catheterization and a ALEKSANDRA today.. He declined the procedure. Meanwhile, is still being diuresed with IV Lasix. This will be transitioned to oral Lasix by cardiology. His electrolytes are all within normal limits. He is slightly alkalotic related to diuresis. Function is stable with a creatinine of 0.9. He is currently on room air oxygen. It seems that the patient is refusing any further intervention and I was told this by the cardiology group. Plans are to do these workups on outpatient basis including a cardiac catheterization and a ALEKSANDRA. Objective - Vital Signs Vital signs: Vital Signs Temp 98.2 F 11/08/20 03:37 Pulse 105 H 11/08/20 12:00 Resp 18 11/08/20 12:00 BP 127/91 11/08/20 12:00 Pulse Ox 94 L 11/08/20 12:00 Intake & Output 11/07/20 11/08/20 11/08/20 18:59 06:59 18:59 Intake Total 919.854 240 477 Output Total 450 Balance 469.854 240 477 Weight 60.5 kg Intake: Intake, IV Titration 125.854 Amount Heparin Sod,Pork in 0.45% 125.854 NaCl 25,000 unit In 0.45 % NaCl 1 250ml.bag @ 12 UNITS/KG/HR 7.524 mls/hr IV .Q24H [facility] Rx#: [id number] Oral 794 240 477 Output: Urine 450 Other: Voiding Method Urinal # Voids 1 # Bowel Movements 1 - Exam The patient appeared well nourished and normally developed. Vital signs as documented. Head exam is unremarkable. No scleral icterus or corneal arcus noted. Neck is without jugular venous distension, thyromegaly, or carotid bruits. Carotid upstrokes are brisk bilaterally. Lungs sounds are diminished in the patient's back in lung bases bilaterally.Cardiac exam reveals the PMI to be normally sized and situated. Rhythm is regular. First and second heart sounds normal. the patient is a systolic ejection murmur grade 3/6 consistent with aortic stenosis, rubs or gallops. Abdominal exam reveals normal bowel sounds, no masses, no organomegaly and no aortic enlargement. Extremities are nonedematous and both femoral and pedal pulses are normal.Examination of the skin revealed no evidence of significant rashes, suspicious appearing nevi or other concerning lesions.Neurologically, the patient is awake and alert and the patient does not have any focal neurological deficit. Cranial nerves are essentially intact.Examination of the skin revealed no evidence of significant rashes, susp icious appearing nevi or other concerning lesions.Neurologically, the patient is awake and alert and the patient does not have any focal neurological deficit. Cranial nerves are essentially intact. - Labs CBC & Chem 7: 11/08/20 09:40 11/08/20 09:40 Labs: Abnormal Lab Results - Last 24 Hours (Table) 11/07/20 11/08/20 11/08/20 Range/Units 22:19 09:40 09:40 WBC 11.5 H (3.8-10.6) k/uL Hgb 12.9 L (13.0-17.5) gm/dL Plt Count 533 H (150-450) k/uL Neutrophils # 9.2 H (1.3-7.7) k/uL APTT 32.0 H (22.0-30.0) sec Sodium 133 L (137-145) mmol/L Chloride 95 L (98-107) mmol/L Carbon Dioxide 33 H (22-30) mmol/L BUN 25 H (9-20) mg/dL Glucose 104 H (74-99) mg/dL Microbiology - Last 24 Hours (Table) 11/04/20 11:14 Blood Culture - Preliminary Blood No Growth after 96 hours Assessment and Plan Plan: 1 acute shortness of breath likely on the basis of decompensated heart failure and valvular heart disease. The patient has interval drop in the patient's left ventricular ejection fraction which is on 40% and the same time the patient was found to have severe aortic stenosis.. Quit taking the medication and the patient had an acute hypertensive reaction which probably contributed to his heart failure. 2 small bilateral pleural effusion secondary to above 3 interstitial pulmonary edema secondary to above 4 severe aortic stenosis with secondary pulmonary hypertension and impaired LV function 5 COPD 6 History of smoking 7 history of CVA 8 skin cancer 9. Right bundle branch block pattern with frequent PACs 10 irregular cardiac rhythm. Possible multifocal atrial tachycardia versus Atrial fibrillation. plan Change Lasix to oral The pro-calcitonin level is Is low and infection is doubtful The white cell count is improved and has dropped down to 11.5 Continue the nebulizer treatments Cardiac catheterization and ALEKSANDRA on outpatient basis Continue metoprolol 50 mg twice a day lisinopril 20 mg by mouth daily depilatory painter on the case. Pulmonary and critical care services we'll sign off
[2020-11-09] MEDS ORDERED: FUROSEMIDE 20 MG TAB PO SCH (09:00)
== END 2020-11-08 16:55 | disposition home or self-care (01) | DRG 292 ==
LOC: EC 09:31 → 3SCARD 11:18
PROVIDERS: ADMIT Internal Medicine; ATTEND Internal Medicine
DX: I11.0 Hypertensive heart disease with heart failure (principal); I47.1 Supraventricular tachycardia; I47.2 Ventricular tachycardia; E87.1 Hypo-osmolality and hyponatremia; E87.3 Alkalosis; J44.1 Chronic obstructive pulmonary disease with (acute) exacerbation; J98.11 Atelectasis; I50.23 Acute on chronic systolic (congestive) heart failure; I27.20 Pulmonary hypertension, unspecified; I35.2 Nonrheumatic aortic (valve) stenosis with insufficiency; I42.9 Cardiomyopathy, unspecified; Z71.6 Tobacco abuse counseling; F17.210 Nicotine dependence, cigarettes, uncomplicated; T50.2X5A Adverse effect of carbonic-anhydrase inhibitors, benzothiadiazides and other diuretics, initial encounter; F41.9 Anxiety disorder, unspecified; Z20.828 Contact with and (suspected) exposure to other viral communicable diseases; Z79.82 Long term (current) use of aspirin; Z79.899 Other long term (current) drug therapy; Z91.19 Patient's noncompliance with other medical treatment and regimen; T50.906A Underdosing of unspecified drugs, medicaments and biological substances, initial encounter; Z91.128 Patient's intentional underdosing of medication regimen for other reason; Z82.49 Family history of ischemic heart disease and other diseases of the circulatory system; Z86.73 Personal history of transient ischemic attack (TIA), and cerebral infarction without residual deficits; R79.89 Other specified abnormal findings of blood chemistry; Z88.1 Allergy status to other antibiotic agents; Z88.0 Allergy status to penicillin
CPT/HCPCS: 36415; 71046; 80048; 80053; 80061; 83605; 83735; 83880; 84132; 84145; 84443; 84484; 85025; 85610; 85730; 87040; 87635; 93005; 93306; 94640; 94760; 96365; 96367; 96375; 99285